=== PATIENT | female | born 1945 | race Caucasian/White ===

== ENCOUNTER → 2017-11-23 10:06 | Outpatient (POV) | payer MEDICARE, SELFPAY ==
[2017-11-23 10:28] VITALS: BP 139/62; PULSE 97; RESP 18; TEMP 36.5; O2SAT 93; BMI 41.1
--- NOTE | 2017-11-23 12:09 | HMH.PMCON ---
Assessment and Plan (1) Failed back syndrome Current visit: Yes Status: Chronic Category: Medical Code(s): M96.1 - Postlaminectomy syndrome, not elsewhere classified - Assessment and plan all Dx Assessment and Plan for all problems:: Patient has tried and failed epidural injections along with facet joint injections. Patient has tried conservative therapies for 6 months. Patient's tried and failed anti-inflammatories over 3 months. Patient is on Plavix. We will determine if she can come off of this for an intrathecal pain pump trial. I believe it would be beneficial for her long-term pain control. Patient is interested in pursuing this. Patient and I talked about realistic goal setting along with the trialing and implantation process. Patient would like to proceed. This note was dictated using voice recognition software and may contain errors or omissions HPI - Data of Consult Consult date: 11/23/17 Requesting Physician: Snehal Flower APRN Primary Care Provider: Matty Browne Family Provider: Matty Browne - Consult Narrative Reason for consult: Back pain History of present illness: Ms. Lemons is a 71 year old female presents today for consultation in regards to her back pain. Patient has had several surgeries in regards to her lower back. Patient states that her pain is a constant 8 out of 10. She states that it is aching and dull in nature. Patient is unable to walk for longer periods of time. Patient has tried and failed physical therapy. Patient was also seen in pain management for epidural injections and medial branch blocks. Patient is currently not in any pain medication. Patient is interested in interventional means of long-term pain relief. CC: Snehal Flower APRN [facility] History I have reviewed the patient's past medical history: Yes Medical History: Reports:: Diabetes Mellitus Type 2 Denies:: Cancer, Diabetes Mellitus Type 1, MRSA Other Medical History: Reports: Arthritis Other Surgeries: Yes: Cardiac Catheterization, Coronary Stent Amputation: No Fractures: No - *Social History Educational Level: Completed High School Alcohol Intake: never Occupational Status: retired Housing: house - Psychiatric History Expresses thoughts of harming self/others: None Suicide Plan Description: No Plan Review of Systems - Review of Systems ROS General: no recent weight change, no fever, no sleep disturbances Respiratory: no cough, no shortness of air, no recurring pulmonary infections Cardiovascular/Peripheral Vascular: No chest pain, No palpitations, no edema, no shortness of breath. Gastrointestinal: no incontinence, normal bowel movements reported Genitourinary: no incontinence Musculoskeletal: Back pain, leg pain Psychiatric: normal mood/ affect Neurological: [denies weakness in extremities], [denies balance issues] Meds Home Medications Medication Instructions Recorded Confirmed Type ALPRAZolam [Alprazolam Xr 1mg Tab] 1 mg PO DAILY 11/23/17 11/23/17 History Amlodipine Besylate [Norvasc 5mg 5 mg PO DAILY 11/23/17 11/23/17 History tablet] Aspirin 81 mg PO DAILY 11/23/17 11/23/17 History Atorvastatin Calcium [Atorvastatin 40 mg PO DAILY 11/23/17 11/23/17 History 40mg Tab] Clopidogrel Bisulfate [Plavix 75mg 75 mg PO DAILY 11/23/17 11/23/17 History Tab] Insulin Glargine,Hum.rec.anlog 100 unit SQ DAILY 11/23/17 11/23/17 History [Lantus Insulin 100units/mL 10mL vial] Levothyroxine Sodium 25 mcg PO DAILY 11/23/17 11/23/17 History [Levothyroxine 25mcg (0.025mg) Tab] Lisinopril [Prinivil 5mg Tablet] 5 mg PO DAILY 11/23/17 11/23/17 History Mirtazapine 15 mg PO DAILY 11/23/17 11/23/17 History Pantoprazole Sodium [Protonix 40mg 40 mg PO DAILY 11/23/17 11/23/17 History tablet] Paroxetine Mesylate [Pexeva] 40 mg PO DAILY 11/23/17 11/23/17 History Semaglutide [Ozempic] 1 mg SQ WEEKLY 11/23/17 11/23/17 History glipiZIDE [Glucotrol Xl]
--- NOTE | 2017-12-10 11:12 | PC.NURSE ---
APPROVAL OBTAINED FOR PT TO DISCONTINUE PLAVIX 7 DAYS PRIOR TO PAIN PUMP TRIAL FROM DR ZHENG. PT NOTIIFED TO STOP PLAVIX Dec AND THAT SHE IS SCHEDULED FOR PAIN PUMP TRIAL Dec AT 830AM. PT V/U.
== END ==
PROVIDERS: Family Provider Family Medicine; PCP Family Medicine; Visit Provider Clinical Nurse Specialist Family Health
DX: M96.1 Postlaminectomy syndrome, not elsewhere classified (principal)
CPT/HCPCS: 99202

== ENCOUNTER → 2018-06-07 08:54 | Outpatient (POV) | payer MEDICARE, SELFPAY ==
[2018-06-07 09:03] VITALS: BP 148/69; PULSE 82; RESP 18; O2SAT 98; BMI 38.7
--- NOTE | 2018-06-07 09:13 | HMH.PAINSOAP ---
[facility] Pain Management SOAP Note Subjective:: She is a pleasant 72-year-old white female who presents today to discuss intrathecal pain pump. Patient has tried and failed epidural injections along with facet joint injections. She is tolerating failed conservative therapies for over 6 months. Patient's tried and failed anti-inflammatories for over 3 months patient has permission to come off of her anticoagulation therapy prior to her injection. Patient has tried and failed medications. Patient and I have talked about realistic goal setting along with trialing and the implantation process. Rates her pain a 5 out of 10 when sitting up to 9 out of 10 when trying to walk ROS General: no recent weight change, no fever, no sleep disturbances Respiratory: no cough, no shortness of air, no recurring pulmonary infections Cardiovascular/Peripheral Vascular: No chest pain, No palpitations, no edema, no shortness of breath. Gastrointestinal: no incontinence, normal bowel movements reported Genitourinary: no incontinence Musculoskeletal: Back pain, leg pain Psychiatric: normal mood/ affect Neurological: [denies weakness in extremities], [denies balance issues] Objective:: Physical Exam General: Alert and oriented x3, no acute distress, pleasant and cooperative, [on room air] Lungs: Resps E/U, Symmetrical chest expansion, Eyes: PERRL Musculoskeletal: Flexion and extension of lumbar spine somewhat guarded secondary to pain, deep tendon reflexes normal, strength in upper and lower extremities [5/5], [abnormal gait noted] Neurological: speech clear, fire hydrant mechanic equal, no gross sensory deficits Assessment:: Postlaminectomy syndrome, degenerative disc disease lumbar spine with lumbar radiculopathy Plan:: We will schedule her for intrathecal pain pump trial. I believe it would be beneficial. Patient is a psychologically appropriate candidate. Patient is allowed to come off of her anticoagulation prior I will follow-up with the patient after her trial reassess her symptoms at that time. Dr. Taveras has reviewed this note and agrees with this plan of care. This note was dictated using voice recognition software and may contain errors or omissions
--- NOTE | 2018-06-07 09:18 | PC.NURSE ---
PT ADVISED TO STOP TAKING PLAVIX 7 DAYS PRIOR TO PROCEDURE NEXT WednesdayJune. PT V/U. ALL QUESTIONS WERE ENCOURAGED AND ANSWERED APPROPRIATELY.
== END ==
PROVIDERS: PCP Family Medicine; Visit Provider Clinical Nurse Specialist Family Health
DX: M96.1 Postlaminectomy syndrome, not elsewhere classified (principal); M51.16 Intervertebral disc disorders with radiculopathy, lumbar region
CPT/HCPCS: 99212

== ENCOUNTER → 2018-07-04 12:26 | Outpatient (POV) | payer MEDICARE, SELFPAY ==
[2018-07-04 12:39] VITALS: BP 156/74; PULSE 77; RESP 18; O2SAT 99; BMI 41.3
--- NOTE | 2018-07-04 13:03 | HMH.PAINSOAP ---
[facility] Pain Management SOAP Note Subjective:: Patient is a pleasant 72-year-old white female who presents today to discuss denial from her insurance on intrathecal pain pump. Patient is tried and failed epidural injections along with facet joint injections. She is failed conservative therapies for over 6 months. She has tried and failed anti-inflammatories along with systemic oral opioids including [place] for over 3 months. Patients age and comorbidities increases potential issues with oral opioid. Patient has permission to come off anticoagulation therapy prior to injections. she rates her pain a 7 out of 10 getting worse. Patient states she is having difficulty walking, her daily living and functionality has decreased. Patient is continuing a home stretching program however is becoming more more difficult. Patient is an appropriate psychological candidate. ROS General: no recent weight change, no fever, no sleep disturbances Respiratory: no cough, no shortness of air, no recurring pulmonary infections Cardiovascular/Peripheral Vascular: No chest pain, No palpitations, no edema, no shortness of breath. Gastrointestinal: no incontinence, normal bowel movements reported Genitourinary: no incontinence Musculoskeletal: Back pain, leg pain Psychiatric: normal mood/ affect Neurological: [denies weakness in extremities], [denies balance issues] Objective:: ROS General: no recent weight change, no fever, no sleep disturbances Respiratory: no cough, no shortness of air, no recurring pulmonary infections Cardiovascular/Peripheral Vascular: No chest pain, No palpitations, no edema, no shortness of breath. Gastrointestinal: no incontinence, normal bowel movements reported Genitourinary: no incontinence Musculoskeletal: Back pain, leg pain Psychiatric: normal mood/ affect Neurological: [denies weakness in extremities], [denies balance issues] Assessment:: Postlaminectomy syndrome, degenerative disc disease lumbar spine with lumbar radiculopathy Plan:: Patient and I had a long discussion in regards to the opioid crisis that is effecting our country. Patient and I both agree that moving forward with oral opioids is potentially harmful for her in regards to long-term systemic dysfunction and organ dysfunction. Patient has tried oral opioids in the past with no relief.. She continues home stretching program. Patient understands intrathecal therapy delivers medication differently. There are less opportunities to abuse medicine. Patient also understands that her medicine will be safer due to it being implanted. I do believe the patient would benefit from an intrathecal pain pump trial. She is psychologically appropriate she is allowed to come off her anticoagulation prior to this. We will ask for approval to have this procedure done. Dr. Taveras has reviewed this note and agrees with this plan of care. This note was dictated using voice recognition software and may contain errors or omissions
--- NOTE | 2018-07-04 13:06 | P.CONS_ITS ---
[facility] Pain Management SOAP Note Subjective:: Patient is a pleasant 72-year-old white female who presents today to discuss denial from her insurance on intrathecal pain pump. Patient is tried and failed epidural injections along with facet joint injections. She is failed conservative therapies for over 6 months. She has tried and failed anti- inflammatories along with systemic oral opioids including [place] for over 3 months. Patients age and comorbidities increases potential issues with oral opioid. Patient has permission to come off anticoagulation therapy prior to injections. she rates her pain a 7 out of 10 getting worse. Patient states she is having difficulty walking, her daily living and functionality has decreased. Patient is continuing a home stretching program however is becoming more more difficult. Patient is an appropriate psychological candidate. ROS General: no recent weight change, no fever, no sleep disturbances Respiratory: no cough, no shortness of air, no recurring pulmonary infections Cardiovascular/Peripheral Vascular: No chest pain, No palpitations, no edema, no shortness of breath. Gastrointestinal: no incontinence, normal bowel movements reported Genitourinary: no incontinence Musculoskeletal: Back pain, leg pain Psychiatric: normal mood/ affect Neurological: [denies weakness in extremities], [denies balance issues] Objective:: ROS General: no recent weight change, no fever, no sleep disturbances Respiratory: no cough, no shortness of air, no recurring pulmonary infections Cardiovascular/Peripheral Vascular: No chest pain, No palpitations, no edema, no shortness of breath. Gastrointestinal: no incontinence, normal bowel movements reported Genitourinary: no incontinence Musculoskeletal: Back pain, leg pain Psychiatric: normal mood/ affect Neurological: [denies weakness in extremities], [denies balance issues] Assessment:: Postlaminectomy syndrome, degenerative disc disease lumbar spine with lumbar radiculopathy Plan:: Patient and I had a long discussion in regards to the opioid crisis that is effecting our country. Patient and I both agree that moving forward with oral opioids is potentially harmful for her in regards to long-term systemic dysfunction and organ dysfunction. Patient has tried oral opioids in the past with no relief.. She continues home stretching program. Patient understands intrathecal therapy delivers medication differently. There are less opportuniti es to abuse medicine. Patient also understands that her medicine will be safer due to it being implanted. I do believe the patient would benefit from an intrathecal pain pump trial. She is psychologically appropriate she is allowed to come off her anticoagulation prior to this. We will ask for approval to have this procedure done. Dr. Taveras has reviewed this note and agrees with this plan of care. This note was dictated using voice recognition software and may contain errors or omissions
== END ==
PROVIDERS: PCP Family Medicine; Visit Provider Clinical Nurse Specialist Family Health
DX: M96.1 Postlaminectomy syndrome, not elsewhere classified (principal); M51.16 Intervertebral disc disorders with radiculopathy, lumbar region
CPT/HCPCS: 99212

== ENCOUNTER → 2018-09-16 09:45 | Outpatient (CLI) | payer MEDICARE, SELFPAY ==
[2018-09-16 09:56] LABS: Basophils # 0.1 K/mm3 (0-0.2); Basophils % 0.9 % (0.1-2.0); Eosinophils # 0.1 K/mm3 (0.0-0.4); Eosinophils % 1.1 % (0.1-12.0); Hematocrit 41.9 % (37.0-47.0); Lymphocytes % 57.4 % (10-50); Mean Corpuscular HGB Conc 31.1 g/dL (31.8-35.4); Mean Corpuscular Hemoglobin 27.2 pg (27.0-31.2); Mean Corpuscular Volume 87.6 fl (81-99); Mean Platelet Volume 7.1 fl (7.4-10.4); Monocytes # 0.3 K/mm3 (0.1-1.0); Monocytes % 3.8 % (1.7-9.3); Neutrophils # 3.2 K/mm3 (1.8-7.8); Neutrophils % 36.8 % (37.0-80.0); Platelet Count 213 K/mm3 (142-424); Red Blood Count 4.78 M/mm3 (4.20-5.40); White Blood Count 8.7 K/mm3 (4.8-10.8)
[2018-09-16 10:19] LABS: MANUAL DIFFERENTIAL MANUAL DIFFERENTIAL (MANUAL DIFF)
[2018-09-16 11:10] LABS: Anion Gap 13.4 mEq/L (5-15); Blood Urea Nitrogen 22 mg/dL (7-18); Carbon Dioxide 26 mmol/L (21.0-32.0); Chloride 105 mmol/L (98-107); Creatinine,Serum 1.02 mg/dL (0.55-1.02); Estimated Glomerular Filt Rate 54 ml/min (>60); GFR (African American) 65 ML/MIN (>60); Glucose 177 mg/dL (74-106); Potassium 4.4 mmoL/L (3.5-5.1); Sodium 140 mmol/L (136-145)
[2018-09-16 13:27] LABS: Hypochromasia 1+; Lymphocytes % 53 % (10-50); Monocytes % 2 % (2-9); Neutrophils % 44 % (42-76); Total Cells Counted 100
[2018-09-16 13:28] LABS: Platelet Estimate Normal
== END ==
PROVIDERS: Visit Provider Clinical Nurse Specialist Family Health
DX: Z79.899 Other long term (current) drug therapy (principal)
CPT/HCPCS: 36415; 80048; 85007; 85025

== ENCOUNTER → 2018-09-23 09:06 | Outpatient (POV) | payer MEDICARE, SELFPAY ==
[2018-09-23 09:31] VITALS: BP 108/57; PULSE 84; RESP 18; O2SAT 94; BMI 39.0
--- NOTE | 2018-09-23 10:35 | HMH.PMPROC ---
- Procedure Date: 09/23/18 Time: 10:35 Anesthesiologist:: Dexter Taveras MD Complications:: None Pre-procedure Diagnosis:: Degenerative disc disease of lumbar spine with lumbar radicular symptoms and increasing pain with swelling Post-procedure Diagnosis:: Same Indications for Procedure:: This patient is a pleasant 72-year-old white female who recently had permanent pain pump placed 2 days ago. She has some increasing pain over the incisions and also on her back. She also has noticed some swelling of her abdomen. She was unable to get her binder back on. She may have some retention of fluid. She is also requesting to take her Xanax at night since she has not slept. On interrogation of her pump she is going at 0.25 mg/day of intrathecal morphine 5 mg per ml. Procedure Details:: Informed consent was obtained and the risk and benefits of the procedure was explained to the patient. Patient was taken to the procedure room. The pump was interrogated. The patient was given his bolus of intrathecal morphine 0.1 mg over 5 minutes. Patient tolerated the procedure well with no palpitations. Patient's pain pump continue to 0.25 mg/day. Plan and Disposition:: We will follow-up with this patient on Wednesday. We will give her 1 dose of Lasix 40 mg orally to help with any fluid retention. We will also give her tramadol 50 mg 3 times a day for 5 days to help with incisional pain. The bolus of her intrathecal pain pump will help with her back pain. I have also allowed her to take her Xanax at night 0.5 mg to help her with her sleep. Again I have talked to her about weaning off the Xanax eventually.
== END ==
PROVIDERS: PCP Family Medicine; Visit Provider Clinical Nurse Specialist Family Health
DX: M51.16 Intervertebral disc disorders with radiculopathy, lumbar region (principal)
CPT/HCPCS: 62368

== ENCOUNTER → 2018-09-27 08:35 | Outpatient (POV) | payer MEDICARE, SELFPAY ==
--- NOTE | 2018-09-27 08:54 | HMH.PAINSOAP ---
[facility] Pain Management SOAP Note Subjective:: Female who presents today for follow-up after intrathecal pain pump placement. Patient is being treated for low back pain with lumbar radicular symptoms. Patient rates her pain a 4 out of 10 today. She says that she is feeling much better. Patient was seen last week for complaints of swelling to her abdomen patient says that she is doing better and is not feeling any swelling in her abdomen now. Patient denies any side effects to medications. [facility] #[id number] is reviewed and is appropriate. Review of Systems General: No recent weight changes, no fever, no sleep disturbances Respiratory: No cough, no shortness of air, no recurring pulmonary infections Cardiovascular/peripheral vascular: No chest pain, no palpitations, no edema, no shortness of breath Gastrointestinal: No new onset incontinence, normal bowel movements reported Genitourinary: No new onset incontinence Musculoskeletal: Lumbar back pain Psychiatric: Normal mood/affect Neurological: [Denies weakness in extremities], [denies balance issues] Objective:: Physical exam General: Alert and oriented x3, no acute distress, pleasant and cooperative, [on room air] Lungs: Respirations even and unlabored, symmetrical chest expansion Eyes: PERRL Musculoskeletal: Flexion and extension of lumbar spine somewhat guarded secondary to pain, deep tendon reflexes normal, strength in upper and lower extremities [5/5], [abnormal gait noted] Neurological: Speech clear, data administrator equal, no gross sensory deficit Assessment:: Degenerative disc disease lumbar spine with lumbar radiculopathy Plan:: Overall, the patient is doing well. She feels her edema in her abdomen has gone down. She also feels that her pain is well controlled at this time. We did discuss possibility of setting of her PTC, but the patient feels that her pain is being well controlled at this time. Wound VAC was removed, with incision well approximated no infection noted. Sutures are intact. We will follow-up with the patient in 2 weeks to remove her sutures and reassess her symptoms at that time. She is been instructed to call the office if she has any concerns prior to her next appointment. Dr. Taveras has reviewed this note and agrees with this plan of care. This note was dictated using voice recognition software and make contain errors or omissions.
[2018-09-27 08:59] VITALS: BP 153/57; PULSE 69; RESP 18; O2SAT 98; BMI 30.8
--- NOTE | 2018-09-27 09:02 | P.CONS_ITS ---
[facility] Pain Management SOAP Note Subjective:: Female who presents today for follow-up after intrathecal pain pump placement. Patient is being treated for low back pain with lumbar radicular symptoms. Patient rates her pain a 4 out of 10 today. She says that she is feeling much better. Patient was seen last week for complaints of swelling to her abdomen patient says that she is doing better and is not feeling any swelling in her abdomen now. Patient denies any side effects to medications. [facility] #[id number] is reviewed and is appropriate. Review of Systems General: No recent weight changes, no fever, no sleep disturbances Respiratory: No cough, no shortness of air, no recurring pulmonary infections Cardiovascular/peripheral vascular: No chest pain, no palpitations, no edema, no shortness of breath Gastrointestinal: No new onset incontinence, normal bowel movements reported Genitourinary: No new onset incontinence Musculoskeletal: Lumbar back pain Psychiatric: Normal mood/affect Neurological: [Denies weakness in extremities], [denies balance issues] Objective:: Physical exam General: Alert and oriented x3, no acute distress, pleasant and cooperative, [on room air] Lungs: Respirations even and unlabored, symmetrical chest expansion Eyes: PERRL Musculoskeletal: Flexion and extension of lumbar spine somewhat guarded secondary to pain, deep tendon reflexes normal, strength in upper and lower extremities [5/5], [abnormal gait noted] Neurological: Speech clear, staffing associate equal, no gross sensory deficit Assessment:: Degenerative disc disease lumbar spine with lumbar radiculopathy Plan:: Overall, the patient is doing well. She feels her edema in her abdomen has gone down. She also feels that her pain is well controlled at this time. We did discuss possibility of setting of her PTC, but the patient feels that her pain is being well controlled at this time. Wound VAC was removed, with incision well approximated no infection noted. Sutures are intact. We will follow-up with the patient in 2 weeks to remove her sutures and reassess her symptoms at that time. She is been instructed to call the office if she has any concerns prior to her next appointment. Dr. Taveras has reviewed this note and agrees with this plan of care. This note was dictated using voice recognition software and make contain errors or omissions.
== END ==
PROVIDERS: PCP Family Medicine; Visit Provider Clinical Nurse Specialist Family Health
DX: M51.16 Intervertebral disc disorders with radiculopathy, lumbar region (principal)
CPT/HCPCS: 99212

== ENCOUNTER → 2018-10-11 08:37 | Outpatient (POV) | payer MEDICARE, SELFPAY ==
[2018-10-11 09:35] VITALS: BP 134/43; PULSE 64; RESP 18; O2SAT 98; BMI 37.2
--- NOTE | 2018-10-11 09:44 | HMH.PAINSOAP ---
[facility] Pain Management SOAP Note Subjective:: She is a very pleasant 72-year-old white female who presents today for follow-up and stitch removal for intrathecal pain pump overall patient is doing well the site of the incision is healed. Patient currently on a morphine dose 0.25 mg/day she rates her pain a 4 out of 10 she is extremely satisfied with this. She denies any need for adjustment today. She denies any side effects. ROS General: no recent weight change, no fever, no sleep disturbances Respiratory: no cough, no shortness of air, no recurring pulmonary infections Cardiovascular/Peripheral Vascular: No chest pain, No palpitations, no edema, no shortness of breath. Gastrointestinal: no incontinence, normal bowel movements reported Genitourinary: no incontinence Musculoskeletal: Back pain, leg pain Psychiatric: normal mood/ affect Neurological: [denies weakness in extremities], [denies balance issues] Objective:: Physical Exam General: Alert and oriented x3, no acute distress, pleasant and cooperative, [on room air] Lungs: Resps E/U, Symmetrical chest expansion, Eyes: PERRL Musculoskeletal: Flexion and extension of lumbar spine somewhat guarded secondary to pain, deep tendon reflexes normal, strength in upper and lower extremities [5/5], slightly antalgic gait noted Neurological: speech clear, enrollment advisor equal, no gross sensory deficits Assessment:: Degenerative disc disease lumbar spine with lumbar radiculopathy Plan:: We will continue the patient on a morphine infusion of 0.25 mg/day. She does not have a PTC set up and states she does not need it. Patient's been instructed to call the office if she has any issues prior to her next appointment we will see her back for next intrathecal pain pump refill and reprogram. Dr. Taveras has reviewed this note and agrees with this plan of care. This note was dictated using voice recognition software and may contain errors or omissions Pain Management Hx Components *Have you ever received a pneumonia vaccine?: Yes *Have you received a flu vaccine this season?: Yes - *Social History *Occupational Status:: other *Travel in the last 8 weeks: None
--- NOTE | 2018-10-11 09:48 | P.CONS_ITS ---
[facility] Pain Management SOAP Note Subjective:: She is a very pleasant 72-year-old white female who presents today for follow-up and stitch removal for intrathecal pain pump overall patient is doing well the site of the incision is healed. Patient currently on a morphine dose 0.25 mg/day she rates her pain a 4 out of 10 she is extremely satisfied with this. She denies any need for adjustment today. She denies any side effects. ROS General: no recent weight change, no fever, no sleep disturbances Respiratory: no cough, no shortness of air, no recurring pulmonary infections Cardiovascular/Peripheral Vascular: No chest pain, No palpitations, no edema, no shortness of breath. Gastrointestinal: no incontinence, normal bowel movements reported Genitourinary: no incontinence Musculoskeletal: Back pain, leg pain Psychiatric: normal mood/ affect Neurological: [denies weakness in extremities], [denies balance issues] Objective:: Physical Exam General: Alert and oriented x3, no acute distress, pleasant and cooperative, [on room air] Lungs: Resps E/U, Symmetrical chest expansion, Eyes: PERRL Musculoskeletal: Flexion and extension of lumbar spine somewhat guarded secondary to pain, deep tendon reflexes normal, strength in upper and lower extremities [5/5], slightly antalgic gait noted Neurological: speech clear, gas engineer equal, no gross sensory deficits Assessment:: Degenerative disc disease lumbar spine with lumbar radiculopathy Plan:: We will continue the patient on a morphine infusion of 0.25 mg/day. She does not have a PTC set up and states she does not need it. Patient's been instructed to call the office if she has any issues prior to her next appointment we will see her back for next intrathecal pain pump refill and reprogram. Dr. Taveras has reviewed this note and agrees with this plan of care. This note was dictated using voice recognition software and may contain errors or omissions Pain Management Hx Components *Have you ever received a pneumonia vaccine?: Yes *Have you received a flu vaccine this season?: Yes - *Social History *Occupational Status:: other *Travel in the last 8 weeks: None
== END ==
PROVIDERS: PCP Family Medicine; Visit Provider Clinical Nurse Specialist Family Health
DX: M51.16 Intervertebral disc disorders with radiculopathy, lumbar region (principal)
CPT/HCPCS: 99212

== ENCOUNTER → 2018-11-14 08:40 | Outpatient (POV) | payer MEDICARE, SELFPAY ==
[2018-11-14 09:21] VITALS: BP 144/54; PULSE 65; RESP 18; O2SAT 98; BMI 36.9
--- NOTE | 2018-11-14 09:37 | HMH.PMPROC ---
- Procedure Date: 11/14/18 Time: 09:37 Anesthesiologist:: Snehal Flower APRN Complications:: None Pre-procedure Diagnosis:: Degenerative disc disease lumbar spine with lumbar radiculopathy Post-procedure Diagnosis:: Same Indications for Procedure:: Patient is a pleasant 72-year-old white female who presents today for intrathecal pain pump adjustment. She is currently on a morphine dose of 0.25 mg/day. She rates the pain a 4 out of 10. She states she is having some flares. She would like a slight increase. She denies any side effects. [facility] #[id number] reviewed and appropriate. Physical Exam General: Alert and oriented x3, no acute distress, pleasant and cooperative, [on room air] Lungs: Resps E/U, Symmetrical chest expansion, Eyes: PERRL Musculoskeletal: Flexion and extension of lumbar spine somewhat guarded secondary to pain, deep tendon reflexes normal, strength in upper and lower extremities [5/5], slightly antalgic gait noted Neurological: speech clear, match marker equal, no gross sensory deficits Procedure Details:: Informed consent was obtained and the risk and benefits of the procedure were explained to the patient. The patient was taken to the procedure room where noninvasive monitoring was placed including noninvasive blood pressure cuff and pulse oximeter. Patient's pump was interrogated and reprogrammed. The infusion rate was increased to 0.325 mg of morphine a day. Patient does not have a PTC set up. The patient tolerated the procedure well. Plan and Disposition:: We will follow-up with the patient at her next intrathecal pain pump refill and reprogram she is been instructed to call the office if she has any issues prior to her next appointment. Dr. Taveras has reviewed this note and agrees with this plan of care. This note was dictated using voice recognition software and may contain errors or omissions
--- NOTE | 2018-11-14 09:40 | P.PCN_ITS ---
- Procedure Date: 11/14/18 Time: 09:37 Anesthesiologist:: Snehal Flower APRN Complications:: None Pre-procedure Diagnosis:: Degenerative disc disease lumbar spine with lumbar radiculopathy Post-procedure Diagnosis:: Same Indications for Procedure:: Patient is a pleasant 72-year-old white female who presents today for intrathecal pain pump adjustment. She is currently on a morphine dose of 0.25 mg/day. She rates the pain a 4 out of 10. She states she is having some flares. She would like a slight increase. She denies any side effects. [facility] #[id number] reviewed and appropriate. Physical Exam General: Alert and oriented x3, no acute distress, pleasant and cooperative, [on room air] Lungs: Resps E/U, Symmetrical chest expansion, Eyes: PERRL Musculoskeletal: Flexion and extension of lumbar spine somewhat guarded secondary to pain, deep tendon reflexes normal, strength in upper and lower extremities [5/5], slightly antalgic gait noted Neurological: speech clear, superintendent automotive equal, no gross sensory deficits Procedure Details:: Informed consent was obtained and the risk and benefits of the procedure were explained to the patient. The patient was taken to the procedure room where noninvasive monitoring was placed including noninvasive blood pressure cuff and pulse oximeter. Patient's pump was interrogated and reprogrammed. The infusion rate was increased to 0.325 mg of morphine a day. Patient does not have a PTC set up. The patient tolerated the procedure well. Plan and Disposition:: We will follow-up with the patient at her next intrathecal pain pump refill and reprogram she is been instructed to call the office if she has any issues prior to her next appointment. Dr. Taveras has reviewed this note and agrees with this plan of care. This note was dictated using voice recognition software and may contain errors or omissions
== END ==
PROVIDERS: PCP Family Medicine; Visit Provider Clinical Nurse Specialist Family Health
DX: M51.16 Intervertebral disc disorders with radiculopathy, lumbar region (principal)
CPT/HCPCS: 62368

== ENCOUNTER → 2019-11-06 08:55 | Outpatient (POV) | payer MEDICARE, SELFPAY ==
--- NOTE | 2019-11-06 09:16 | HMH.PMPROC ---
- Procedure Date: 11/06/19 Time: 09:16 Anesthesiologist:: Snehal Flower APRN Complications:: None Pre-procedure Diagnosis:: Degenerative disc disease lumbar spine lumbar radiculopathy Post-procedure Diagnosis:: Same Indications for Procedure:: Patient is a pleasant 73-year-old white female who presents today for intrathecal pain pump reprogram. Patient was diagnosed with colon cancer she is successfully had it removed and is overall doing well. She still having some stomach difficulties and she is being followed up with a etcher enameling. She is currently on a morphine infusion to 0.4 mg a day she denies side effects from medication. She rates her pain a 4 out of 10. Physical Exam General: Alert and oriented x3, no acute distress, pleasant and cooperative, [on room air] Lungs: Resps E/U, Symmetrical chest expansion, Eyes: PERRL Musculoskeletal: Flexion and extension of lumbar spine somewhat guarded secondary to pain, deep tendon reflexes normal, strength in upper and lower extremities [5/5], [abnormal gait noted] Neurological: speech clear, friction welding machine operator equal, no gross sensory deficits Procedure Details:: Informed consent was obtained and the risk and benefits of the procedure were explained to the patient. The patient was taken to the procedure room where noninvasive monitoring was placed including noninvasive blood pressure cuff and pulse oximeter. Patient's pump was interrogated and reprogrammed. The infusion rate was increased 0.5 mg/day. The patient tolerated the procedure well. Plan and Disposition:: I will see the patient at her next intrathecal pain pump refill and reprogram she has been instructed to call the office if she has any issues prior to her next appointment. Dr. Taveras has reviewed this note and agrees with this plan of care. This note was dictated using voice recognition software and may contain errors or omissions
[2019-11-06 09:22] VITALS: BP 125/88; PULSE 85; RESP 18; O2SAT 99; BMI 33.7
== END ==
PROVIDERS: PCP Family Medicine; Visit Provider Clinical Nurse Specialist Family Health
DX: M51.16 Intervertebral disc disorders with radiculopathy, lumbar region (principal); E66.9 Obesity, unspecified; Z68.33 Body mass index [BMI] 33.0-33.9, adult; E11.9 Type 2 diabetes mellitus without complications; Z79.899 Other long term (current) drug therapy; Z79.82 Long term (current) use of aspirin; Z79.02 Long term (current) use of antithrombotics/antiplatelets
CPT/HCPCS: 62368

== ENCOUNTER 2019-11-20 13:48 | Day surgery (SDC) | payer MEDICARE, SELFPAY ==
[2019-11-20 14:16] VITALS: BP 149/52; PULSE 64; RESP 18; TEMP 37; O2SAT 95; BMI 33.7
[2019-11-20 14:31] VITALS: BP 166/62; PULSE 67; RESP 18; O2SAT 96
--- NOTE | 2019-11-20 14:33 | HMH.PMPROC ---
- Procedure Date: 11/20/19 Time: 14:40 Anesthesiologist:: Snehal Flower APRN Complications:: None Pre-procedure Diagnosis:: Degenerative disc disease lumbar spine lumbar radiculopathy Post-procedure Diagnosis:: Same Indications for Procedure:: Patient is a very pleasant 73-year-old white female who presents today for intrathecal pain pump refill and reprogram. Patient was diagnosed with colon cancer she successfully had it removed and is overall doing well she still currently on a morphine infusion of 0.5 mg/day. We will refill her today. [facility] #[id number] reviewed and appropriate urine drug screens have been appropriate. Physical Exam General: Alert and oriented x3, no acute distress, pleasant and cooperative, [on room air] Lungs: Resps E/U, Symmetrical chest expansion, Eyes: PERRL Musculoskeletal: Flexion and extension of lumbar spine somewhat guarded secondary to pain, deep tendon reflexes normal, strength in upper and lower extremities [5/5], slightly antalgic gait noted Neurological: speech clear, hand glove cleaner equal, no gross sensory deficits Procedure Details:: Informed consent was obtained and the risk and benefits of the procedure were explained to the patient. The patient was taken to the procedure room where noninvasive monitoring was placed including noninvasive blood pressure cuff and pulse oximeter. Patient's pump was interrogated. The area over the pump was cleansed with chlorhexidine as a cleansing solution. In sterile fashion the pump was accessed with a 22-gauge needle. Approximately 4 mL's were removed of the pump solution and discarded appropriately. The pump was then refilled with 20 mL's of morphine 5 milligrams per mL. The needle was withdrawn and a bandage was placed over the puncture site. The infusion rate was reprogrammed to continue at 0.5 mg/day. The patient tolerated the procedure well. Plan and Disposition:: We will follow-up with the patient at her next intrathecal pain pump refill and reprogram she has been instructed to call the office if she has any issues prior to next appointment. Dr. Taveras has reviewed this note and agrees with this plan of care. This note was dictated using voice recognition software and may contain errors or omissions
[2019-11-20 14:36] VITALS: BP 165/65; PULSE 69; RESP 18; O2SAT 98
[2019-11-20 14:47] VITALS: BP 153/63; PULSE 64; RESP 18; O2SAT 95
== END 2019-11-20 14:48 | disposition home or self-care (01) ==
LOC: SC.PAINP 13:48
PROVIDERS: PCP Family Medicine; Visit Provider Clinical Nurse Specialist Family Health
DX: M51.16 Intervertebral disc disorders with radiculopathy, lumbar region (principal); Z72.0 Tobacco use; E78.5 Hyperlipidemia, unspecified; J44.9 Chronic obstructive pulmonary disease, unspecified; E07.9 Disorder of thyroid, unspecified; Z90.49 Acquired absence of other specified parts of digestive tract; Z85.038 Personal history of other malignant neoplasm of large intestine; Z95.818 Presence of other cardiac implants and grafts
CPT/HCPCS: 95991

== ENCOUNTER 2020-02-26 12:51 | Day surgery (SDC) | payer MEDICARE, SELFPAY ==
[2020-02-26 13:05] VITALS: BP 186/56; PULSE 60; RESP 18; TEMP 36.6; O2SAT 99; BMI 35.9
[2020-02-26 13:22] VITALS: BP 165/71; PULSE 66; RESP 18
[2020-02-26 13:24] VITALS: BP 162/71; PULSE 65; RESP 18; O2SAT 98
--- NOTE | 2020-02-26 13:27 | HMH.PMPROC ---
- Procedure Date: 02/26/20 Time: 13:28 Anesthesiologist:: Snehal Flower APRN Complications:: None Pre-procedure Diagnosis:: Degenerative disc disease lumbar spine lumbar radiculopathy Post-procedure Diagnosis:: Same Indications for Procedure:: Patient is a pleasant 74-year-old white female who presents today for intrathecal pain pump refill and reprogram. She is doing well at this time however she would like a slight increase to her morphine infusion of 0.5 mg/day. She denies side effects from medication. [facility] #[id number] reviewed and appropriate drug screens have been appropriate. Physical Exam General: Alert and oriented x3, no acute distress, pleasant and cooperative, [on room air] Lungs: Resps E/U, Symmetrical chest expansion, Eyes: PERRL Musculoskeletal: Flexion and extension of lumbar spine somewhat guarded secondary to pain, deep tendon reflexes normal, strength in upper and lower extremities [5/5], [abnormal gait noted] Neurological: speech clear, language path equal, no gross sensory deficits Procedure Details:: Informed consent was obtained and the risk and benefits of the procedure were explained to the patient. The patient was taken to the procedure room where noninvasive monitoring was placed including noninvasive blood pressure cuff and pulse oximeter. Patient's pump was interrogated. The area over the pump was cleansed with chlorhexidine as a cleansing solution. In sterile fashion the pump was accessed with a 22-gauge needle. Approximately 9.5 mL's were removed of the pump solution and discarded appropriately. The pump was then refilled with 20 mL's of morphine 5 mg/mL. The needle was withdrawn and a bandage was placed over the puncture site. The infusion rate was reprogrammed to 0.6 mg/day. The patient tolerated the procedure well. Plan and Disposition:: I will follow-up with the patient at her next intrathecal pain pump refill and reprogram she has been instructed to call the office if she has any issues prior to her next appointment. Dr. Taveras has reviewed this note and agrees with this plan of care. This note was dictated using voice recognition software and may contain errors or omissions
[2020-02-26 13:35] VITALS: BP 156/51; PULSE 57; RESP 18; O2SAT 99
== END 2020-02-26 13:36 | disposition home or self-care (01) ==
LOC: SC.PAINP 12:51
PROVIDERS: PCP Family Medicine; Visit Provider Clinical Nurse Specialist Family Health
DX: M51.16 Intervertebral disc disorders with radiculopathy, lumbar region (principal)
CPT/HCPCS: 62370

== ENCOUNTER → 2020-05-20 10:55 | Outpatient (POV) | payer OTHER, SELFPAY ==
[2020-05-20 11:03] VITALS: BP 129/78; PULSE 74; RESP 18; O2SAT 98; BMI 35.9
--- NOTE | 2020-05-20 12:08 | P.PCN_ITS ---
- Procedure Date: 05/20/20 Time: 12:08 Anesthesiologist:: Snehal Flower APRN Complications:: None Pre-procedure Diagnosis:: Degenerative disc disease lumbar spine lumbar radiculopathy and back pain, sacroiliitis Post-procedure Diagnosis:: Same Indications for Procedure:: Patient is a very pleasant 74-year-old white female who presents today for intrathecal pain pump adjustment. Patient's been doing very well in regard to her intrathecal therapy however she is having new left SI joint pain. She has a positive SI joint compression test, distraction test, Lincoln's test, Deisy test on the left side. Patient's pain pump has not been able to cover this pain she rates her pain a 4 out of 10. We will give her a slight increase today however I do believe getting her approved for a left SI joint injection will be beneficial for her. Patient is currently on morphine 0.6 mg/day. [facility] #[id number] reviewed. Procedure Details:: Informed consent was obtained and the risk and benefits of the procedure were explained to the patient. The patient was taken to the procedure room where noninvasive monitoring was placed including noninvasive blood pressure cuff and pulse oximeter. Patient's pump was interrogated and reprogrammed. The infusion rate was increased to 0.75 mg/day of morphine. The patient tolerated the procedure well. Plan and Disposition:: We will set the patient up for a left SI joint injection given the symptomology of the patient I do believe this would benefit her. I will follow-up with her after this reassess her symptoms at that time she has been instructed to call the office if she has any issues prior to her next appointment. Dr. Taveras has reviewed this note and agrees with this plan of care. This note was dictated using voice recognition software and may contain errors or omissions
== END ==
PROVIDERS: PCP Family Medicine; Visit Provider Clinical Nurse Specialist Family Health
DX: M51.16 Intervertebral disc disorders with radiculopathy, lumbar region (principal); M46.1 Sacroiliitis, not elsewhere classified
CPT/HCPCS: 62368

== ENCOUNTER 2020-05-24 10:45 | Day surgery (SDC) | payer MEDICARE, SELFPAY ==
[2020-05-24 10:54] VITALS: BP 189/58; PULSE 72; RESP 22; TEMP 36.6; O2SAT 91; BMI 35.9
--- NOTE | 2020-05-24 11:56 | HMH.PMPROC ---
- Procedure Date: 05/24/20 Time: 11:56 Anesthesiologist:: Dexter Taveras MD Complications:: None Pre-procedure Diagnosis:: Sacroiliitis Post-procedure Diagnosis:: Same Indications for Procedure:: This patient is a pleasant 74-year-old white female who we are treating for left-sided hip pain. She is tender over the left SI joint. She has an intrathecal pain pump in place with intrathecal morphine she is doing well with her pump. Since she has new left-sided sacroiliitis. We will do a left SI joint injection under fluoroscopy today. She has a positive Lincoln's test on the left side. She has a positive Deisy test on left side. She is positive SI joint compression test on the left side. She has a positive distraction test on left side. We will do a left SI joint injection today. Procedure Details:: Left SI joint injection under fluoroscopy Informed consent was obtained and the risks and benefits of the procedure was explained to the patient. Patient was taken to the procedure room. Patient was placed prone on the procedure table. The left hip was prepped using ChloraPrep. The skin and subcutaneous tissues were anesthetized using lidocaine. I placed a 22-gauge spinal needle into the inferior aspect of the left SI joint. Needle placement was confirmed with dye. After this we injected 5 mL bupivacaine 0.25% and Depo-Medrol 40 mg into the left SI joint. The patient tolerated the procedure well with no complication. Plan and Disposition:: We will follow-up with her in 2 weeks. Will reevaluate symptoms at that time.
[2020-05-24 12:00] VITALS: BP 138/88; PULSE 89; RESP 18
[2020-05-24 12:02] VITALS: BP 128/89; PULSE 89; RESP 18; O2SAT 98
[2020-05-24 12:12] VITALS: BP 173/58; PULSE 69; RESP 20; O2SAT 93
== END 2020-05-24 12:12 | disposition home or self-care (01) ==
LOC: SC.PAINP 10:47
PROVIDERS: PCP Family Medicine; Visit Provider Anesthesiology
DX: M46.1 Sacroiliitis, not elsewhere classified (principal); M54.9 Dorsalgia, unspecified; I25.10 Atherosclerotic heart disease of native coronary artery without angina pectoris; E78.5 Hyperlipidemia, unspecified; I10 Essential (primary) hypertension; K21.9 Gastro-esophageal reflux disease without esophagitis; F41.9 Anxiety disorder, unspecified; F32.9 Major depressive disorder, single episode, unspecified; E11.9 Type 2 diabetes mellitus without complications; Z85.038 Personal history of other malignant neoplasm of large intestine; Z72.0 Tobacco use; Z79.899 Other long term (current) drug therapy
CPT/HCPCS: 27096; G0260; J1040; Q9966

== ENCOUNTER 2020-06-24 12:35 | Day surgery (SDC) | payer MEDICARE, SELFPAY ==
[2020-06-24 13:03] VITALS: BP 172/60; PULSE 72; RESP 18; TEMP 36.6; O2SAT 98; BMI 35.9
[2020-06-24 13:23] VITALS: BP 148/57; PULSE 68; RESP 18; TEMP 36.8
[2020-06-24 13:24] VITALS: BP 142/56; PULSE 69; RESP 18; O2SAT 95
--- NOTE | 2020-06-24 13:25 | HMH.PMPROC ---
- Procedure Date: 06/24/20 Time: 13:25 Anesthesiologist:: Snehal Flower APRN Complications:: None Pre-procedure Diagnosis:: Degenerative disc disease lumbar spine lumbar radiculopathy, back pain Post-procedure Diagnosis:: Same Indications for Procedure:: Patient is a pleasant 74-year-old white female who we are treating for low back and lumbar leg pain. Patient had an SI joint injection she had some relief however she did not get long-term relief. She is like to increase her intrathecal infusion today. She is currently on 0.75 mg of morphine a day she denies any side effects. [facility] #[id number] reviewed and appropriate. She rates her pain today 5 out of 10 Procedure Details:: Informed consent was obtained and the risk and benefits of the procedure were explained to the patient. The patient was taken to the procedure room where noninvasive monitoring was placed including noninvasive blood pressure cuff and pulse oximeter. Patient's pump was interrogated. The area over the pump was cleansed with chlorhexidine as a cleansing solution. In sterile fashion the pump was accessed with a 22-gauge needle. Approximately 4.5 mL's were removed of the pump solution and discarded appropriately. The pump was then refilled with 20 mL's of morphine 5 mg/mL. The needle was withdrawn and a bandage was placed over the puncture site. The infusion rate was reprogrammed to 0.9 mg/day. The patient tolerated the procedure well. Plan and Disposition:: We will see the patient back at her next intrathecal pain pump refill and reprogram she has been instructed to call our office if she has any issues prior to her next appointment. Dr. Taveras has reviewed this note and agrees with this plan of care. This note was dictated using voice recognition software and may contain errors or omissions
[2020-06-24 14:23] VITALS: BP 153/54; PULSE 65; RESP 18; TEMP 36.6; O2SAT 98
== END 2020-06-24 13:30 | disposition home or self-care (01) ==
LOC: SC.PAINP 12:36
PROVIDERS: PCP Family Medicine; Visit Provider Clinical Nurse Specialist Family Health
DX: M51.16 Intervertebral disc disorders with radiculopathy, lumbar region (principal); I25.10 Atherosclerotic heart disease of native coronary artery without angina pectoris; I10 Essential (primary) hypertension; E11.9 Type 2 diabetes mellitus without complications; E03.9 Hypothyroidism, unspecified; M19.90 Unspecified osteoarthritis, unspecified site; Z72.0 Tobacco use; E78.5 Hyperlipidemia, unspecified; J44.9 Chronic obstructive pulmonary disease, unspecified; Z90.49 Acquired absence of other specified parts of digestive tract
CPT/HCPCS: 62370

== ENCOUNTER → 2020-07-31 10:06 | Outpatient (CLI) | payer MEDICARE, SELFPAY ==
--- NOTE | 2020-07-31 10:31 | MR_ITS ---
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 Duodenum removed Sept. 2020 per pt. Pt is s/p cholecystectomy and has a pain pump that has caused severe artifact on the images. Exam was ordered with/without, but stopped with the without images because of artifact. COMPARISON: No exams were available for comparison TECHNIQUE: Routine multiplanar multi echo sequences are performed without gadolinium enhancement. FINDINGS: There are no previous exams available for review. Severe artifact is present from the patient's pain pump obscuring much of the upper abdomen. Suggest CT scan for more thorough evaluation. There is prominent biliary ductal dilatation with common hepatic duct measuring up to 13 mm in diameter. There is mild pancreatic ductal dilatation is well measuring up to 5 mm in the pancreatic head region and 4 mm in the mid aspect of the pancreas. There has been a prior cholecystectomy. There are several T2 hyperintensities within the spleen . There are at least 3 small T2 hyperintensities of the liver measuring approximately 3-4 mm.. These could be related to small cysts or hemangiomas. One cannot exclude the possibility of metastatic disease without T1 sequences and post enhanced images. The spleen is enlarged measuring 19 cm in AP dimension. An oval 3.6 cm area of T2 hyperintensity is present along the descending portion of the duodenum medially and could be related to a duodenal diverticulum from or postsurgical collection. In addition, there is a 3.2 cm area of decreased T2 signal in the gallbladder fossa region a T2 hyperintense fluid fluid level posteriorly and could be related to postsurgical hematoma. These findings however are questionable due to the limitations of the exam. Strongly recommend CT of the abdomen with pancreatic protocol without and with IV contrast and with oral contrast. IMPRESSION: 1. Very limited exam secondary to artifact from patient's pain pump. The exam borders nondiagnostic. Strongly recommend CT of the abdomen and pelvis with pancreatic protocol without and with IV contrast and with oral contrast. 2. Splenomegaly. 3. Prior cholecystectomy with biliary ductal dilatation both intra and extrahepatic. 4. Unusual collections about the duodenum and gallbladder fossa which may be postsurgical. One of the collections about the duodenum may be related to a diverticulum. Please correlate with follow-up abdomen CT 5. Several small hepatic and splenic T2 hyperintensities. This could be due to small cyst. However, without T1 and postcontrast images, 1 cannot exclude small metastasis. Dictated by: Marek Carpio MD 08/07/2020 06:00 Marek Carpio MD in [place] 08/07/2020 06:00
[2020-07-31 10:46] LABS: Blood Urea Nitrogen 17 mg/dl (7-17); Estimated Glomerular Filt Rate 49 ml/min (>60); GFR (African American) 59 ML/MIN (>60)
== END ==
PROVIDERS: PCP Family Medicine; Visit Provider Family Medicine
DX: R10.13 Epigastric pain (principal)
CPT/HCPCS: 36415; 74181; 82565; 84520

== ENCOUNTER 2020-08-19 12:42 | Day surgery (SDC) | payer MEDICARE, SELFPAY ==
[2020-08-19 12:57] VITALS: BP 157/50; PULSE 76; RESP 18; TEMP 36.7; O2SAT 94; BMI 34.9
--- NOTE | 2020-08-19 13:09 | P.PCN_ITS ---
- Procedure Date: 08/19/20 Time: 13:09 Anesthesiologist:: Leida Fields APRN Complications:: None Pre-procedure Diagnosis:: Disc disease lumbar spine with lumbar radiculopathy symptoms, chronic low back pain Post-procedure Diagnosis:: Same Indications for Procedure:: Patient is a 74-year-old white female who presents today for intrathecal pain pump refill. She has been treated for degenerative disc disease lumbar spine with lumbar radiculopathy symptoms. Patient rates her pain a 7 out of 10 today. She is having worsening low back pain. She says she recently had an MRI of her lumbar spine and following the refill of the medicine into the pump after the MRI her pain worsened. She will undergo a concentration change today as well. We will increase her today with her intrathecal therapy. Her Grzegorz and drug screens have been appropriate. She denies any side effects of medication. She is currently on morphine at 0.9 mg/day. We will also set up her PTC device today to go at 0.09 mg up to 4 times daily. Physical exam General: Alert and oriented x3, no acute distress, pleasant and cooperative, [on room air] Lungs: Respirations even and unlabored, symmetrical chest expansion Eyes: PERRL Musculoskeletal: Flexion and extension of lumbar spine somewhat guarded secondary to pain, deep tendon reflexes normal, strength in upper and lower extremities [5/5], [abnormal gait noted] Neurological: Speech clear, middleware engineer equal, no gross sensory deficit Procedure Details:: Informed consent was obtained and the risk and benefits of the procedure were explained to the patient. The patient was taken to the procedure room where noninvasive monitoring was placed including noninvasive blood pressure cuff and pulse oximeter. Patient's pump was interrogated. The area over the pump was cleansed with chlorhexidine as a cleansing solution. In sterile fashion the pump was accessed with a 22-gauge needle. Approximately 25 mls of the pump so lution was removed and discarded appropriately. The pump was then refilled with 20 mL's of mL of morphine 10 mg per mill. The needle was withdrawn and a bandage was placed over the puncture site. The infusion rate was reprogrammed at morphine at 1.08 mg/day. PTC started at 0.09 mg up to 4 times daily. The patient tolerated well with no complication. Plan and Disposition:: We will see the patient back at her next intrathecal pump refill and reprogram. Patient has been instructed to contact the clinic with any concerns before the next appointment. Dr. Taveras has reviewed this note and agrees with this plan of care. This note was dictated using voice recognition software and make contain errors or omissions.
[2020-08-19 13:12] VITALS: BP 153/52; PULSE 75; RESP 18; O2SAT 95
[2020-08-19 13:13] VITALS: BP 178/70; PULSE 72; RESP 18; O2SAT 95
[2020-08-19 13:40] VITALS: BP 156/57; PULSE 64; RESP 18; O2SAT 94
== END 2020-08-19 13:40 | disposition home or self-care (01) ==
LOC: SC.PAINP 12:43
PROVIDERS: PCP Family Medicine; Visit Provider Clinical Nurse Specialist Family Health
DX: M51.16 Intervertebral disc disorders with radiculopathy, lumbar region (principal); G89.29 Other chronic pain; Z45.1 Encounter for adjustment and management of infusion pump
CPT/HCPCS: 62370

== ENCOUNTER 2020-11-25 14:34 | Day surgery (SDC) | payer MEDICARE, SELFPAY ==
[2020-11-25 14:49] VITALS: BP 178/49; PULSE 89; RESP 18; TEMP 36.3; O2SAT 99; BMI 35.2
[2020-11-25 15:09] VITALS: BP 172/63; PULSE 69; RESP 18; O2SAT 95
[2020-11-25 15:12] VITALS: BP 180/66; PULSE 72; RESP 18; O2SAT 93
--- NOTE | 2020-11-25 15:20 | HMH.PMPROC ---
- Procedure Date: 11/25/20 Time: 15:20 Anesthesiologist:: Leida Fields APRN Complications:: None Pre-procedure Diagnosis:: Degenerative disc disease lumbar spine with lumbar radiculopathy symptoms Post-procedure Diagnosis:: Same Indications for Procedure:: Patient is a pleasant 74-year-old white female who presents today for intrathecal pain pump refill and reprogram. She has been treated for degenerative disc disease lumbar spine with lumbar radiculopathy symptoms. She is currently on a dose of morphine at 1.08 mg/day. She says that she is now having worsening pain in her low back. She says when initially getting the pump she felt that as though it was working great, however, she is unsure that she is getting significant relief with the pump at this time. We will increase the patient to see if this helps with her pain. She is currently getting Xanax as well 0.5 mg 1 tablet p.o. 3 times daily for anxiety by her primary care provider. She has been advised against increased risk of oversedation with oral Xanax and her intrathecal therapy. [facility] #[id number] has been reviewed and is appropriate. X-ray is appropriate. Morphine equivalents 0. Physical exam General: Alert and oriented x3, no acute distress, pleasant and cooperative, [on room air] Lungs: Respirations even and unlabored, symmetrical chest expansion Eyes: PERRL Musculoskeletal: Flexion and extension of lumbar [spine] somewhat guarded secondary to pain, strength in upper and lower extremities [5/5], [antalgic gait noted] Neurological: Speech clear, [rn iv therapy equal], no gross sensory deficit Procedure Details:: Informed consent was obtained and the risk and benefits of the procedure were explained to the patient. The patient was taken to the procedure room where noninvasive monitoring was placed including noninvasive blood pressure cuff and pulse oximeter. Patient's pump was interrogated. The area over the pump was cleansed with chlorhexidine as a cleansing solution. In sterile fashion the pump was accessed with a 22-gauge needle. Approximately 5 mls of the pump solution was removed and discarded appropriately. The pump was then refilled with 20 mL's of morphine and milligrams per mL. The needle was withdrawn and a bandage was placed over the puncture site. The infusion rate was reprogrammed at increased to morphine at 1.30 mg/day. The patient tolerated well with no complication. Plan and Disposition:: We will see the patient back in the clinic at the next intrathecal refill. Patient has been instructed to contact the clinic with any concerns before the next appointment. Dr. Taveras has reviewed this note and agrees with this plan of care. This note was dictated using voice recognition software and make contain errors or omissions.
[2020-11-25 15:26] VITALS: BP 178/58; PULSE 64; RESP 20; O2SAT 95
== END 2020-11-25 15:27 | disposition home or self-care (01) ==
LOC: SC.PAINP 14:36
PROVIDERS: PCP Family Medicine; Visit Provider Clinical Nurse Specialist Family Health
DX: M51.16 Intervertebral disc disorders with radiculopathy, lumbar region (principal); Z45.1 Encounter for adjustment and management of infusion pump
CPT/HCPCS: 62370

== ENCOUNTER 2021-05-07 09:36 | Inpatient (IN) | payer MEDICARE, SELFPAY ==
[2021-05-07] VITALS (12 sets, daily range): BP systolic 141–210; BP diastolic 57–94; PULSE 60–120; RESP 18–30; TEMP 36.4–37; O2SAT 93–99; BMI 35.9; BMI 36.0
--- NOTE | 2021-05-07 09:43 | XR_ITS ---
FINAL REPORT CLINICAL HISTORY: dyspnea former smoker FINDINGS: TWO VIEWS OF THE CHEST There is cardiomegaly. The mediastinum is unremarkable. There are bibasilar opacities, favor atelectasis. Small pleural effusions are identified. There is no pneumothorax. IMPRESSION: Small pleural effusions with bibasilar atelectasis. Reviewed, Interpreted and Dictated by Juma Mclean III, MD Transcribed by Jie Menendez Authenticated by Juma Mclean III, MD on 05/07/2021 11:08:38 AM [facility]
--- NOTE | 2021-05-07 09:44 | ECG_ITS ---
APPROVED REPORT Exam: Resting ECG HR:64 bpm ECG Measurements Heart Rate 64 AXES IA 171 P 68 QRSd 90 QRS 67 QT 398 T 100 QTc 407 Conclusion SINUS RHYTHM POSSIBLE LEFT ATRIAL ENLARGEMENT [-0.1mV P-WAVE IN V1/V2] NONSPECIFIC ST & T-WAVE ABNORMALITY BORDERLINE ECG UNCONFIRMED REPORT Electronically signed by : Benjamín Michelle MD 05/09/2021 16:08:29
--- NOTE | 2021-05-07 09:47 | HMH.EDGENADL ---
ED Disposition Clinical Impression: Heart failure with acute decompensation, type unknown Qualifiers: Heart failure type: unspecified Qualified Code(s): I50.9 - Heart failure, unspecified Disposition: Admitted As Inpatient Condition on Discharge: Undetermined - Critical Care Critical Care Time: No Attestation: On , the high probability of a clinically significant, sudden or life threatening deterioration of the following system(s) required my full and direct attention, intervention and personal management. The time I documented below is in addition to time spent performing reported procedures but includes the following listed in this critical care notation. Medical Decision Making - Medical Records Medical records reviewed: Yes: I reviewed the patient's medical records. - Grzegorz Inquiry Pt receiving controlled substance: No Vital Signs: 05/07/21 09:36 05/07/21 09:47 05/07/21 10:31 Temperature 98.4 F Temperature Source Oral Pulse Rate 61 Pulse Rate [Radial] 74 Respiratory Rate 24 30 H 22 Blood Pressure 170/62 H 157/59 H Blood Pressure [Right Arm] 210/94 H Blood Pressure Mean [Right Arm] 132 Blood Pressure Position [Right Arm] Sitting 02 Sat by Pulse Oximetry 93 L 99 Oxygen Delivery Method Nasal Cannula Oxygen Flow Rate (LPM) 5 - Lab Data Lab results reviewed: Yes: I reviewed the patient's lab results. Lab Results 05/07/21 09:34: WBC 7.8, RBC 4.07 L, Hgb 10.4 L, Hct 36.8 L, MCV 90.4, MCH 25.5 L, MCHC 28.2 L, RDW 18.2 H, Plt Count 237, MPV 8.0, Neut % (Auto) 50.4, Lymph % (Auto) 43.2, Alexander % (Auto) 4.3, Eos % (Auto) 1.2, Baso % (Auto) 0.9, Neut # (Auto) 3.9, Lymph # (Auto) 3.3, Alexander # (Auto) 0.3, Eos # (Auto) 0.1, Baso # (Auto) 0.1 05/07/21 09:34: Sodium 136, Potassium 4.1, Chloride 94 L, Carbon Dioxide 35 H, Anion Gap 11.1, BUN 34 H, Creatinine 0.90, Estimated Creat Clear 66, Estimated GFR 61, Est GFR ( Amer) 74, Glucose 166 H, Calcium 8.0 L, Magnesium 1.8, Total Bilirubin 0.8, AST 42 H, ALT 27, Alkaline Phosphatase 138 H, Troponin I < 0.01, NT-Pro-B Natriuret Pep 41255 H, Total Protein 7.8, Albumin 4.2, Globulin 3.6 H, Albumin/Globulin Ratio 1.2 05/07/21 09:34: Lactate 1.0 05/07/21 09:35: SARS-CoV-2 (PCR) Not detected, Influenza A Untype (PCR) Not detected, Influenza Type B (PCR) Not detected 05/07/21 09:43: VBG pH 7.35, VBG pCO2 58.7 H, VBG pO2 58.5 H, VBG HCO3 31.5 H, VBG Total CO2 33.3 H, VBG O2 Saturation 88.7 H, VBG Base Excess 5.9 H 05/07/21 10:50: Urine Color Straw, Urine Appearance Clear, Urine pH 5.5, Ur Specific [place] 1.015, Urine Protein Trace, Urine Glucose (UA) Negative, Urine Ketones Negative, Urine Blood Trace-i, Urine Nitrate Negative, Urine Bilirubin Negative, Urine Urobilinogen 0.2, Ur Leukocyte Esterase Negative, Urine WBC Occasional, Ur Squamous Epith Cells Occasional, Urine Bacteria Trace Result diagrams: 05/07/21 09:34 05/07/21 09:34 Orders (Tests/Meds): ED MEDICATIONS Discontinued Medications Generic Name Dose Route Start Last Admin Trade Name Freq PRN Reason Stop Dose Admin Alprazolam 0.5 mg 05/07/21 09:47 05/07/21 09:50 Alprazolam 0.5mg Tablet PO 05/07/21 09:48 0.5 mg ONCE ONE Administration Furosemide 80 mg 05/07/21 10:44 05/07/21 10:50 Furosemide 100mg/10ml Vial IV 05/07/21 10:45 80 mg ONCE ONE Administration ORDERS Category Date Time Status Troponin I Q3H Lab 05/07/21 12:45 Ordered Troponin I Q3H Lab 05/07/21 15:45 Ordered Medical Decision Narrative: Patient is a 75-year-old female with a history significant for COPD, heart failure s/p IA, CVA, anxiety and DVT noncompliant with Eliquis is presenting with a chief complaint of worsening dyspnea and orthopnea. On initial exam, patient is hypertensive but she is not tachycardic. Not febrile. She is got fine crackles in all lung emmanuel, concerning for volume overload. Differential diagnosis includes, but is not meant to, acute on chronic decompensation of hear
[2021-05-07 09:59] LABS: Basophils # 0.1 K/mm3 (0-0.2); Basophils % 0.9 % (0.1-2.0); Eosinophils # 0.1 K/mm3 (0.0-0.4); Eosinophils % 1.2 % (0.1-12.0); Hematocrit 36.8 % (37.0-47.0); Hemoglobin 10.4 g/dL (12.2-16.2); Lymphocytes # 3.3 K/mm3 (0.7-4.5); Lymphocytes % 43.2 % (10-50); Mean Corpuscular HGB Conc 28.2 g/dL (31.8-35.4); Mean Corpuscular Hemoglobin 25.5 pg (27.0-31.2); Mean Corpuscular Volume 90.4 fl (81-99); Monocytes # 0.3 K/mm3 (0.1-1.0); Monocytes % 4.3 % (1.7-9.3); Neutrophils # 3.9 K/mm3 (1.8-7.8); Neutrophils % 50.4 % (37.0-80.0); Platelet Count 237 K/mm3 (142-424); Red Blood Count 4.07 M/mm3 (4.20-5.40); Red Cell Distribution Width 18.2 % (11.5-17.5); White Blood Count 7.8 K/mm3 (4.8-10.8)
[2021-05-07 10:05] LABS: Chloride 94 mmol/L (98-107); Potassium 4.1 mmoL/L (3.5-5.1); Sodium 136 mmol/L (136-145)
[2021-05-07 10:06] LABS: Coronavirus 19, PCR Not Detected (NotDetected); Influenza A, PCR Not Detected (NotDetected); Influenza B, PCR Not Detected (NotDetected)
[2021-05-07 10:07] LABS: Alanine Aminotransferase 27 U/L (12-78); Aspartate Amino Transferase 42 U/L (14-36); Blood Urea Nitrogen 34 mg/dl (7-17); Creatinine Clearance Estimated 66 mL/min (50-200); Estimated Glomerular Filt Rate 61 ml/min (>60); GFR (African American) 74 ML/MIN (>60)
--- NOTE | 2021-05-07 10:07 | PC.NURSE ---
TO XRAY PER WHEELCHAIR
[2021-05-07 10:08] LABS: Albumin Level 4.2 g/dl (3.5-5.0); Albumin/Globulin Ratio 1.2 (1.1-1.8); Alkaline Phosphatase 138 U/L (38-126); Anion Gap 11.1 mEq/L (5-15); Bilirubin,Total 0.8 mg/dl (0.2-1.3); Carbon Dioxide 35 mmol/L (22.0-30.0); Globulin 3.6 g/dL (1.3-3.2); Glucose 166 mg/dl (74-100); Magnesium 1.8 mg/dl (1.6-2.3); Total Protein,Serum 7.8 g/dl (6.3-8.2)
[2021-05-07 10:16] LABS: NT Pro Brain Natriuretic Pep. 12800 pg/mL (0-125)
[2021-05-07 10:20] LABS: Troponin I < 0.01 ng/ml (0.00-0.034)
[2021-05-07 10:48] LABS: VBG Base Excess 5.9 mmol/L (-2.4-2.3); VBG HCO3 31.5 mmol/L (23-30); VBG Oxygen Saturation 88.7 % (50-70); VBG PH 7.35 mmol/L (7.31-7.41); VBG PO2 58.5 mmol/L (28-40); VBG Total CO2 33.3 mmol/L (23-27)
--- NOTE | 2021-05-07 10:56 | PC.NURSE ---
called RT to check on status of vbg, states it was just completed, they verbally gave me results over the phone which i relayed to MARIAM VOGEL
[2021-05-07 11:00] LABS: VBG PCO2 58.7 mmol/L (35-51)
[2021-05-07 11:03] LABS: Microscopic, Urine URINE MICROSCOPIC (MICROSCOPIC)
[2021-05-07 11:06] LABS: Appearance,Urine CLEAR (Clear); Bilirubin,Urine Negative (Negative); Blood, Urine TRACE-I (Negative); Color,Urine STRAW (Yellow); Glucose,Urine (UA) Negative (Negative); Ketones,Urine Negative (Negative); Leukocyte Esterase,Urine Negative (Negative); Nitrate,Urine Negative (Negative); PH,Urine 5.5 (5.0-8.5); Protein,Urine TRACE (Negative); Specific Gravity, Urine 1.015 (1.005-1.030); Urobilinogen,Urine 0.2 EU/dl (0.2)
--- NOTE | 2021-05-07 11:08 | PC.NURSE ---
left a message with [facility] office to have him call regarding admission
[2021-05-07 11:27] LABS: Bacteria,Urine Trace /lpf; Squamous Epithelial Cell,Urine Occasional #/hpf (0-5); WBC,Urine Occasional #/hpf (0-3)
--- NOTE | 2021-05-07 12:09 | PC.NURSE ---
PT SITTING UP IN WHEELCHAIR WITH NO C/O AT PRESENT. O2 4L WITH O2 SATS 96%
--- NOTE | 2021-05-07 12:25 | CA_ITS ---
APPROVED REPORT EXAM: Comprehensive 2D, Doppler, and color-flow Echocardiogram Stepdown Nurse: Marielle Feldman, RCS, RVS Ht: 5 ft 0 in Wt: 184lbs BSA: 1.80 BP: 157/59 mmHg Indications: CAD,SOA, O2 dependent, COPD, s/p [place] 1month ago, Pleural effusion 2D Dimensions Aortic Root 2.66 cm LA Volume 78.20 mL Left Atrium 3.29 cm LA Volume Index 43.40 mL/m2 (M/F) 16-34 LVOT 1.74 cm (M/F) 1.5-2.5 M-Mode Dimensions RVDd 2.53 cm (0.9-2.6) LA Diam 4.54 cm (1.9-4.0) LVDd 4.69 cm (3.5-5.7) Ao Diam 2.69 cm (2.0-3.7) LVDs 2.82 cm (3.5-5.7) IVSd 0.80 cm (0.6-1.1) PWd 0.79 cm (0.6-1.1) EF (Teich) 70.50% EPSs 0.79 cm FS 39.90% EDV (Teich) 101.90 mL TAPSE 1.62 (<1.7) ESV (Teich) 30.10 mL LV Diastology E Decel Time 160.00 (160-240 msec) E/A Ratio 3.18 MED E' 8.40 (< 7 cm/sec) MED A' 5.90 cm/s E'/MED E' Ratio 14.18 (>14) LAT E' 8.90 (<10 cm/sec) LAT A' 6.00 cm/s E/LAT E' Ratio 13.38 (>14) Aortic Valve LVOT Max 98.00 (70-110 cm/s) LVOT VTI 19.50 cm AoV Peak Randal. 169.00 (50-130 cm/s) AO Peak GR. 11.40 mmHg AO Mean GR. 5.70 (<5 mmHg) AO VTI 40.71 (18-25 cm) DEBORAH (VTI) 1.14 (2.5-4.5 cm2) Mitral Valve MV A Velocity 38.00 (40-130 cm/s) E/A Ratio 3.18 MV Decel. Time 160.00 (160-240 ms) MV Mean Gr. 2.00 (<2mmHg) MV PHT 47.00 ms Pulmonary Valve PV Peak Velocity 62.00 (50-150 cm/s) Tricuspid Valve TR P. Velocity 395.00 cm/s RAP Estimate 10.00 mmHg RVSP 72.30 mmHg Left Ventricle Left atrium is moderately enlarged, left ventricle is normal size, mild concentric left ventricular hypertrophy, visually estimated ejection fraction 55% with no regional wall motion abnormality, grade 2 diastolic dysfunction seen without tissue Doppler evidence of raise left atrial pressure. Right Ventricle Right atrium and right ventricle moderately enlarged, contractility right ventricle is normal. Aortic Valve Aortic valve is minimally thickened and fibrosed, there is no aortic stenosis or aortic insufficiency. Mitral Valve Mitral valve leaflets are minimally thickened, there is mild mitral regurgitation. Tricuspid Valve Tricuspid valve grossly normal, there is mild tricuspid regurgitation, calculated right ventricular systolic pressure 72 mmHg. Pulmonic Valve Pulmonic valve is poorly visualized. Great Vessels Aortic root is normal size. Inferior vena cava is dilated without significant inspiratory collapse. Pericardium No significant pericardial effusion. There is large left-sided pleural effusion seen. Conclusion 1. Biatrial enlargement, normal left ventricular size, mild concentric left ventricular hypertrophy, visually estimated ejection fraction 55% with no regional wall motion abnormality, grade 2 diastolic dysfunction seen without tissue Doppler evidence of raise left atrial pressure. 2. Moderately enlarged right ventricle with normal contractility. 3. Mild mitral and tricuspid regurgitation, calculated right ventricular systolic pressure is 72 mmHg. 4. Inferior vena cava is mildly dilated without significant inspiratory collapse. 5. No significant pericardial effusion noted, there is a large left-sided pleural effusion seen. Electronically signed by : Daniel Quach MD 05/07/2021 20:19:57
--- NOTE | 2021-05-07 12:28 | PC.NURSE ---
REPORT CALLED TO FLOOR
--- NOTE | 2021-05-07 14:34 | PC.NURSE ---
Pt arrived to the floor via wheelchair accompanied by JYOTI Matias. She is alert and oriented x4. Lungs w/crackles t/o. She remains on 4L NC with O2 sats measuring in the mid 90's. She states she normally ambulates with a walker. Her mccartney is to bedside draining pale colored urine. She has scattered bruising to her extremities and +3 edema to BLE. She denies any complaints at this time.
--- NOTE | 2021-05-07 14:56 | HMH.CNCARD ---
History of Present Illness Consult date: 05/07/21 Requesting physician: Jessika Jimenez Consult reason: shortness of breath Chief complaint: SOA History of present illness: This is a 75-year-old white female who presented to the emergency department complaints of shortness of breath. The patient has a history of COPD, congestive heart failure, atrial fibrillation and coronary artery disease. The patient reports having a recent CVA. She reports that she was recently admitted to [facility] for approximately 30 days and just got out of the hospital last week. The patient states that she was in the hospital for fluid around her lungs. She is a very poor historian and is unable to tell me any more information about her hospitalization or her past medical history. I did call her who is also unable to give me very much information. The patient states that she has been more short of breath for the last few days. This is associated with bilateral lower extremity edema. Her shortness of breath is associated with nausea. She is also having pressure in her chest. She states that she gets extremely nauseated and has cold sweats when she gets really short of breath and having the pressure in her chest. She denies any fever, vomiting, or diarrhea. [facility] History I have reviewed the patient's past medical history: Yes Medical History: Reports:: Atherosclerotic Heart Disease, Atrial Fibrillation, Cancer, Congestive Heart Failure, Coronary Artery Disease, Deep Vein Thrombosis, Diabetes Mellitus Type 2, Hyperlipidemia, Hypertension, Myocardial Infarction Denies:: Diabetes Mellitus Type 1, Internal Pacemaker, MRSA, Seizures *Have you ever received a pneumonia vaccine?: Yes (12/2019) *Have you received a flu vaccine this season?: Yes Other Medical History: Reports: Arthritis, Hypothyroidism, Thyroid Disease. Denies: Blood Transfusion Reaction Laterality Cases: Right: Breast Biopsy Other Surgeries: Yes: Appendectomy, Cancer Surgery (small colon), Cardiac Catheterization, Cholecystectomy, Coronary Stent, Hysterectomy-Total, Other (intrathecalpainpumpimplant). No: Pacemaker Amputation: No Fractures: No - *Social History Smoking Status: Former smoker Tobacco Type: cigarettes # Packs/Day (cigarettes): 1 #Yrs smoked (if former smoker): 55 Smoking End Date: 04/08/21 Alcohol Intake: never Substance Use Type: other *Occupational Status:: retired Housing: house Household Members: spouse *Travel in the last 8 weeks: None Family Hx:: Cancer, Coronary Artery Disease, Diabetes, Heart Attack, Hyperlipidemia, Hypertension Meds Home Medications Medication Instructions Recorded Confirmed Type Atorvastatin Calcium [Atorvastatin 40 mg PO DAILY 11/23/17 05/07/21 History 40mg Tab] Clopidogrel Bisulfate [Plavix 75mg 75 mg PO DAILY 11/23/17 05/07/21 History Tab] Insulin Glargine,Hum.rec.anlog 30 unit SQ DAILY 11/23/17 05/07/21 History [Lantus Insulin 100units/mL 10mL vial] Mirtazapine 15 mg PO DAILY 11/23/17 05/07/21 History Pantoprazole Sodium [Protonix 40mg 40 mg PO DAILY 11/23/17 05/07/21 History tablet] Semaglutide [Ozempic] 1 mg SQ WEEKLY 11/23/17 05/07/21 History glipiZIDE [Glucotrol Xl] 5 mg PO DAILYDM 11/23/17 05/07/21 History Morphine Sulfate 0.4 mg IT DAILY 05/08/19 05/07/21 History ALPRAZolam [Xanax 0.5mg tab] 0.5 mg PO TIDP PRN 05/07/21 05/07/21 History Apixaban [Eliquis 5mg tab] 5 mg PO BID 05/07/21 05/07/21 History Ezetimibe 10 mg PO HS 05/07/21 05/07/21 History Furosemide [Furosemide 80mg Tab] 80 mg PO BIDL 05/07/21 05/07/21 History Levothyroxine Sodium 112 mcg PO DAILYDM 05/07/21 05/07/21 History [Levothyroxine 112mcg (0.112mg) Tab] PARoxetine HCL [Paroxetine HCl] 40 mg PO DAILY 05/07/21 05/07/21 History Sotalol HCl [Sotalol] 80 mg PO BID 05/07/21 05/07/21 History lisinopriL [Lisinopril] 20 mg PO DAILY 05/07/21 05/07/21 History Allergies Allergy/AdvReac Type Severity Reaction Status Volodymyr
[2021-05-07 15:02] LABS: Troponin I < 0.01 ng/ml (0.00-0.034)
--- NOTE | 2021-05-07 16:33 | PC.NURSE ---
Addendum entered by Linda Garcia RN 05/07/21 18:05: med list dated 04/29/21 Original Note: Med rec completed based [facility] med list
[2021-05-08] VITALS (19 sets, daily range): BP systolic 115–176; BP diastolic 50–96; PULSE 56–80; RESP 16–20; TEMP 36.4–36.8; O2SAT 90–100; BMI 34.9; BMI 34.6
--- NOTE | 2021-05-08 | IR_ITS ---
APPROVED REPORT Patient Location: Inpatient PROCEDURES Right heart catheterization Left heart catheterization Left ventriculogram Selective coronary angiogram INDICATION Biventricular congestive heart failure, Informed consent was obtained prior to the procedure. COMPLICATIONS None Estimated Blood Loss: Less than 10 mls TECHNIQUE One percent lidocaine was used to anesthetize the right anterior aspect of the right wrist. The right radial artery was accessed via the Seldinger technique and a 6 Armenian hydrophilic sheath was placed in the right radial artery. Following this one percent lidocaine was used to anesthetize the right anterior aspect of the right neck. The right internal jugular vein was accessed via the Seldinger technique and a 7 Armenian sheath was placed in the right internal jugular vein. Following this an arterial cocktail was administered using 5000U heparin, 2.5 mg verapamil, 1mg Lidocaine and 800mcg nitroglycerin into the right radial sheath. A papa catheter was used to perform left heart catheterization left ventriculogram and selective coronary angiography while a [place]-Chandni catheter was used to perform right heart catheterization. Saturations were obtained in the pulmonary artery and right atrium. At the end of the procedure the arterial sheath was removed good hemostasis was achieved using Traclet band. Patient was transferred to the postop holding area in stable condition for venous sheath removal. ANGIOGRAPHIC RESULTS The left main artery Normal The left anterior descending artery Has proximal 10 to 20% stenoses with mid vessel diffuse 30% stenoses The circumflex artery Is nondominant and has diffuse 30% concentric stenoses The right coronary artery Is a large dominant vessel and has proximal mid vessel calcified 30% stenoses with a concentric 40% distal stenosis. The remaining dominant right coronary artery is a large vessel and widely patent The TAN ventriculogram reveals Hyperdynamic 75 to 80% The left ventricular end-diastolic pressure Severely elevated at 35 mmHg Right atrial pressure 24 mmHg Right ventricular pressure 85/24 mmHg Pulmonary occlusion pressure 32 mmHg Pulmonary artery pressure 85/40 mmHg Right atrial saturation 63% Pulmonary artery saturation 59% IMPRESSION Severe group 2 pulmonary artery hypertension secondary to severe left-sided diastolic heart failure Hyperdynamic ventricle Mild to moderate nonflow limiting coronary artery disease PLAN 1. Patient's clinical sequelae stems from severe form of diastolic heart failure. Patient requires high-dose diuretics with much more aggressive control of her hypertension. Medication should include verapamil plus or minus beta-blockers combined with diuretics. Patient has a very severe form and her prognosis will be poor and less aggressively treated. With appropriate treatment this can reverse and patient's heart began normal. The etiology of her pleural effusions almost certainly stems from severe diastolic/hypertensive heart disease 2. Patient may be a candidate for CardioMEMS to help manage diuretic therapy Electronically signed by : David Neely MD 05/08/2021 16:12:59
[2021-05-08 06:51] LABS: Basophils % 0.8 % (0.1-2.0); Eosinophils % 0.2 % (0.1-12.0); Hematocrit 33.5 % (37.0-47.0); Hemoglobin 9.6 g/dL (12.2-16.2); Lymphocytes # 2.1 K/mm3 (0.7-4.5); Lymphocytes % 40.8 % (10-50); Mean Corpuscular HGB Conc 28.6 g/dL (31.8-35.4); Mean Corpuscular Hemoglobin 25.3 pg (27.0-31.2); Mean Corpuscular Volume 88.5 fl (81-99); Mean Platelet Volume 8.2 fl (7.4-10.4); Monocytes # 0.3 K/mm3 (0.1-1.0); Monocytes % 6.4 % (1.7-9.3); Neutrophils # 2.7 K/mm3 (1.8-7.8); Neutrophils % 51.8 % (37.0-80.0); Platelet Count 208 K/mm3 (142-424); Red Blood Count 3.78 M/mm3 (4.20-5.40); Red Cell Distribution Width 18.4 % (11.5-17.5); White Blood Count 5.2 K/mm3 (4.8-10.8)
[2021-05-08 06:58] LABS: Alanine Aminotransferase 17 U/L (12-78); Albumin Level 3.3 g/dl (3.5-5.0); Alkaline Phosphatase 100 U/L (38-126); Aspartate Amino Transferase 26 U/L (14-36); Bilirubin,Indirect 0.7 mg/dL (0.0-0.9); Bilirubin,Total 0.7 mg/dl (0.2-1.3); Bilirubin,Unconjugated 0.6 mg/dL (0.0-1.1); Chol/HDL Ratio 4.8 (1-3.5); Cholesterol 92 mg/dl (140-200); HDL Cholesterol 19 mg/dl (40-60); Total Protein,Serum 6.4 g/dl (6.3-8.2); Triglycerides 97 mg/dl (30-150); VLDL Cholesterol 19 mg/dL (0-40)
[2021-05-08 07:00] LABS: Anion Gap 8.8 mEq/L (5-15); Blood Urea Nitrogen 36 mg/dl (7-17); Carbon Dioxide 38 mmol/L (22.0-30.0); Chloride 96 mmol/L (98-107); Creatinine Clearance Estimated 64 mL/min (50-200); Estimated Glomerular Filt Rate 54 ml/min (>60); GFR (African American) 66 ML/MIN (>60); Glucose 192 mg/dl (74-100); Potassium 3.8 mmoL/L (3.5-5.1); Sodium 139 mmol/L (136-145)
[2021-05-08 07:10] LABS: Direct LDL Cholesterol 43.01 mg/dL (100-129)
--- NOTE | 2021-05-08 07:12 | HMH.PHAVTE ---
[facility] Pharmacy VTE Monitoring - Patient Demographics Admission date: 05/08/21 Report Date: 05/08/21 Time: 07:12 Allergies/Adverse Reactions: Patient Allergies No Known Drug Allergies [NKDA] Allergy (Unknown, Verified 11/25/20 15:01) Height: 1.52 m Weight: 80.876 kg Patient Problems: Current Active Problems Heart failure with acute decompensation, type unknown (Acute) Acute on chronic diastolic (congestive) heart failure (Acute) Coronary artery disease (Chronic) Hypertension (Chronic) Hyperlipidemia (Chronic) Atrial fibrillation (Chronic) Current use of intermediate anticoagulation (Chronic) Mitral regurgitation (Acute) Anemia (Acute) History of colon cancer (Acute) SOB (shortness of breath) (Acute) - VTE Risk Labs: VTE Related Lab Results Hgb 9.6 g/dL (12.2-16.2) L 05/08/21 06:03 Hct 33.5 % (37.0-47.0) L 05/08/21 06:03 Plt Count 208 K/mm3 (142-424) 05/08/21 06:03 BUN 36 mg/dl (7-17) H 05/08/21 06:03 Creatinine 1.00 mg/dl (0.52-1.04) 05/08/21 06:03 Estimated Creat Clear 64 mL/min (50-200) 05/08/21 06:03 Was VTE Risk Assessment Performed: Yes VTE Score: 14 VTE Risk Level: Moderate Risk Clinical Trial Participant: No - Prophylaxis VTE Prophylaxis Ordered?: Yes Types of VTE Prophylaxis: IPCS Knee High, Pharmacological (eliquis)
--- NOTE | 2021-05-08 08:09 | HMH.PHAINT ---
Home med rec complete
--- NOTE | 2021-05-08 09:26 | HMH.PNCARD ---
Subjective Date: 05/08/21 Time: 08:30 Principal diagnosis: diastolic chf Interval history: This is a 75 and white female who presented to the emergency department complaints of shortness of breath. The patient has been getting IV diuretics overnight and she states her shortness of breath has improved. She is still complaining of the shortness of breath even at rest but it is better than it was when she was admitted. It is still associated with orthopnea, bilateral lower extremity edema and nausea. She denies diaphoresis this morning. She still has some pressure in her chest associated with the shortness of breath as well. She denies any fever, vomiting or diarrhea. Records were received from [facility]. The patient was recently admitted there for an acute exacerbation of diastolic congestive heart failure where she received IV diuretics and did have a chest tube placed at 1 point for an apical pneumothorax. The patient was diuresed and her atrial fibrillation was treated with sotalol as well as Eliquis. 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 Alexandra. Her treatment has currently been stopped due to her multiple comorbidities and declining health status. The patient also has portal hypertension with a history of gastric varices. The patient is scheduled to undergo right and left cardiac catheterization today given her recurrent exacerbations of diastolic congestive heart failure and known coronary artery disease. Exam Vital signs and Labs for Last 24 Hours: Temp Pulse Resp BP Pulse Ox 97.7 F 68 20 151/60 H 90 L 05/08/21 08:00 05/08/21 08:00 05/08/21 08:00 05/08/21 08:00 05/08/21 08:00 Laboratory Results - last 24 hr 05/07/21 09:34: WBC 7.8, RBC 4.07 L, Hgb 10.4 L, Hct 36.8 L, MCV 90.4, MCH 25.5 L, MCHC 28.2 L, RDW 18.2 H, Plt Count 237, MPV 8.0, Neut % (Auto) 50.4, Lymph % (Auto) 43.2, [place] % (Auto) 4.3, Eos % (Auto) 1.2, Baso % (Auto) 0.9, Neut # (Auto) 3.9, Lymph # (Auto) 3.3, [place] # (Auto) 0.3, Eos # (Auto) 0.1, Baso # (Auto) 0.1 05/07/21 09:34: Sodium 136, Potassium 4.1, Chloride 94 L, Carbon Dioxide 35 H, Anion Gap 11.1, BUN 34 H, Creatinine 0.90, Estimated Creat Clear 66, Estimated GFR 61, Est GFR ( Amer) 74, Glucose 166 H, Calcium 8.0 L, Magnesium 1.8, Total Bilirubin 0.8, AST 42 H, ALT 27, Alkaline Phosphatase 138 H, Troponin I < 0.01, NT-Pro-B Natriuret Pep 69069 H, Total Protein 7.8, Albumin 4.2, Globulin 3.6 H, Albumin/Globulin Ratio 1.2 05/07/21 09:34: Lactate 1.0 05/07/21 09:35: SARS-CoV-2 (PCR) Not detected, Influenza A Untype (PCR) Not detected, Influenza Type B (PCR) Not detected 05/07/21 09:43: VBG pH 7.35, VBG pCO2 58.7 H, VBG pO2 58.5 H, VBG HCO3 31.5 H, VBG Total CO2 33.3 H, VBG O2 Saturation 88.7 H, VBG Base Excess 5.9 H 05/07/21 10:50: Urine Color Straw, Urine Appearance Clear, Urine pH 5.5, Ur Specific [place] 1.015, Urine Protein Trace, Urine Glucose (UA) Negative, Urine Ketones Negative, Urine Blood Trace-i, Urine Nitrate Negative, Urine Bilirubin Negative, Urine Urobilinogen 0.2, Ur Leukocyte Esterase Negative, Urine WBC Occasional, Ur Squamous Epith Cells Occasional, Urine Bacteria Trace 05/07/21 14:30: Troponin I < 0.01 05/08/21 06:03: WBC 5.2 D, RBC 3.78 L, Hgb 9.6 L, Hct 33.5 L, MCV 88.5, MCH 25.3 L, MCHC 28.6 L, RDW 18.4 H, Plt Count 208, MPV 8.2, Neut % (Auto) 51.8, Lymph % (Auto) 40.8, [place] % (Auto) 6.4, Eos % (Auto) 0.2, Baso % (Auto) 0.8, Neut # (Auto) 2.7, Lymph # (Auto) 2.1, [place] # (Auto) 0.3, Eos # (Auto) 0.0, Baso # (Auto) 0.0 05/08/21 06:03: Sodium 139, Potassium 3.8, Chloride 96 L, Carbon Dioxide 38 H, Anion Gap 8.8, BUN 36 H, Creatinine 1.00, Estimated Creat Clear 64, Estimated GFR 54 L, Est GFR ( Amer) 66, Glucose 192 H, Calcium 8.0 L 05/08/21 06:03: Total Bilirubin 0.7, Direct Bilirubin 0.0, Conjugated Bilirubin 0.0, Indirect Bilirubin 0.7, Unconjugated Bilirubin 0.6, AST 26 D, ALT 17 D, A
--- NOTE | 2021-05-08 09:31 | HMH.HP ---
*Admission Date: 05/08/21 *Chief complaint: Shortness of breath *History of present illness: 75-year-old female patient presented to the [facility] emergency department per squad she does report not taking Eliquis with reports of shortness of breath, patient has a history of COPD and is on 4 L of oxygen per nasal cannula at home. She reports waking this morning feeling short of breath and has gradually increased throughout the day. She does have a history of heart failure, pulmonary embolus on Eliquis, and was recently inpatient at [facility] for approximately 30 days and was discharged last week for fluid around her lungs and unable to provide any more information. For 3 days due to being out. She denies any chest pain, nausea/vomiting/diarrhea and has bilateral lower extremities, that she reports is decreased from her normal. 05/07/21 CXR: FINDINGS: TWO VIEWS OF THE CHEST There is cardiomegaly. The mediastinum is unremarkable. There are bibasilar opacities, favor atelectasis. Small pleural effusions are identified. There is no pneumothorax. IMPRESSION: Small pleural effusions with bibasilar atelectasis. Reviewed, Interpreted and Dictated by Juma Mclean III, MD 05/07/21 ECHO: Conclusion 1. Biatrial enlargement, normal left ventricular size, mild concentric left ventricular hypertrophy, visually estimated ejection fraction 55% with no regional wall motion abnormality, grade 2 diastolic dysfunction seen without tissue Doppler evidence of raise left atrial pressure. 2. Moderately enlarged right ventricle with normal contractility. 3. Mild mitral and tricuspid regurgitation, calculated right ventricular systolic pressure is 72 mmHg. 4. Inferior vena cava is mildly dilated without significant inspiratory collapse. 5. No significant pericardial effusion noted, there is a large left-sided pleural effusion seen. Electronically signed by : Daniel Quach MD 75-year-old female sitting up in bed. Current oxygenation status 88% on 4 L per nasal cannula. She denies any chest pain or shortness of breath during the night reports she is feeling better today than yesterday. She does report feeling anxious this morning and has not received her Xanax last night nor this morning. [facility] History I have reviewed the patient's past medical history: Yes Medical History: Reports:: Arrhythmia, Atherosclerotic Heart Disease, Atrial Fibrillation, Cancer, Congestive Heart Failure, Coronary Artery Disease, Deep Vein Thrombosis, Diabetes Mellitus Type 2, Hyperlipidemia, Hypertension, Myocardial Infarction Denies:: Diabetes Mellitus Type 1, Internal Pacemaker, MRSA, Seizures *Have you ever received a pneumonia vaccine?: Yes (12/2019) *Have you received a flu vaccine this season?: Yes Other Medical History: Reports: Arthritis, Hypothyroidism, Thyroid Disease. Denies: Blood Transfusion Reaction Laterality Cases: Right: Breast Biopsy Other Surgeries: Yes: Appendectomy, Cancer Surgery (small colon), Cardiac Catheterization, Cholecystectomy, Coronary Stent, Hysterectomy-Total, Other (intrathecalpainpumpimplant). No: Pacemaker Amputation: No Fractures: No - *Social History Smoking Status: Former smoker Tobacco Type: cigarettes # Packs/Day (cigarettes): 1 #Yrs smoked (if former smoker): 55 Smoking End Date: 04/08/21 Alcohol Intake: never Substance Use Type: other *Occupational Status:: retired Housing: house Household Members: spouse *Travel in the last 8 weeks: None Family Hx:: Cancer, Coronary Artery Disease, Diabetes, Heart Attack, Hyperlipidemia, Hypertension Review of Systems - Review of Systems Review of systems:: pertinent systems reviewed and negative unless documented below - Constitutional Reports fatigue, Denies body ache(s) - Eyes Denies blind spots, Denies double vision - ENT Denies bleeding gums, Denies facial pain - *Cardiovascular Reports shortness of breath, Reports shortness of b
--- NOTE | 2021-05-08 12:25 | XR_ITS ---
PROCEDURE INFORMATION: Exam: XR Chest Exam date and time: 05/08/2021 12:25 PM Age: 75 years old Clinical indication: Dyspnea TECHNIQUE: Imaging protocol: XR of the chest. Views: 1 view. COMPARISON: CR XR CHEST 2V 05/07/2021 10:01 AM FINDINGS: Lungs: Bibasilar airspace disease are again seen. Pleural spaces: Bilateral pleural effusions are noted. Heart/Mediastinum: Unremarkable. No cardiomegaly. Bones/joints: Unremarkable. IMPRESSION: Stable bibasilar airspace disease and bilateral effusions.
--- NOTE | 2021-05-08 14:30 | PC.NURSE ---
Pt is alert and oriented x4. Lungs clear, she remains on 4L NC with O2 sats measuring in the lower 90's. +2 edema to BLE. Scattered bruising to BUE, stage 1 to right buttocks. Flower dressing applied as a precaution and pt encouraged to change position frequently. She is currently resting in bed w/ at bedside awaiting transport to lab associate.
[2021-05-08 16:07] LABS: CATHL Arterial O2 SAT 59.7 % (90-100); CATHL Venous O2 SAT 63.9 % (75-80)
--- NOTE | 2021-05-08 18:39 | PC.NURSE ---
Gauze and tegaderm to rt IJ site is clean, dry and intact. Radial band in place, removing air q15min. No signs of oozing or bleeding.
[2021-05-09] VITALS (9 sets, daily range): BP systolic 109–130; BP diastolic 49–71; PULSE 50–140; RESP 16–20; TEMP 36.4–36.8; O2SAT 93–100; BMI 34.8
--- NOTE | 2021-05-09 03:50 | ECG_ITS ---
APPROVED REPORT Exam: Resting ECG HR:120 bpm ECG Measurements Heart Rate 120 AXES QRSd 89 QRS 79 QT 326 T 240 QTc 397 Conclusion ATRIAL FIBRILLATION WITH RAPID VENTRICULAR RESPONSE NONSPECIFIC ST & T-WAVE ABNORMALITY ABNORMAL ECG UNCONFIRMED REPORT Electronically signed by : Benjamín Michelle MD 05/09/2021 16:01:50
--- NOTE | 2021-05-09 04:16 | PC.NURSE ---
Patient had a rhythm change, vitals are all WNL with the exception of heart rate at 117. Patient has no symptoms and is resting in bed comfortably. EKG was performed and the ED MD gave no new orders. Patient will get up into the 130's at times but is not sustaining. Patient's right radial and right IJ site is C/D/I. Patient has voiced no complaints. Will continue to monitor.
[2021-05-09 07:02] LABS: Blood Urea Nitrogen 35 mg/dl (7-17); Calcium 8.2 mg/dl (8.4-10.2); Carbon Dioxide 39 mmol/L (22.0-30.0); Chloride 97 mmol/L (98-107); Creatinine Clearance Estimated 64 mL/min (50-200); Estimated Glomerular Filt Rate 54 ml/min (>60); GFR (African American) 66 ML/MIN (>60); Glucose 55 mg/dl (74-100); Sodium 141 mmol/L (136-145)
[2021-05-09 07:23] LABS: Basophils # 0.1 K/mm3 (0-0.2); Basophils % 1.4 % (0.1-2.0); Eosinophils % 0.8 % (0.1-12.0); Hematocrit 32.3 % (37.0-47.0); Hemoglobin 9.6 g/dL (12.2-16.2); Lymphocytes # 2.3 K/mm3 (0.7-4.5); Lymphocytes % 55.9 % (10-50); Mean Corpuscular HGB Conc 29.8 g/dL (31.8-35.4); Mean Corpuscular Hemoglobin 25.4 pg (27.0-31.2); Mean Corpuscular Volume 85.4 fl (81-99); Mean Platelet Volume 8.1 fl (7.4-10.4); Monocytes # 0.2 K/mm3 (0.1-1.0); Monocytes % 5.9 % (1.7-9.3); Neutrophils # 1.5 K/mm3 (1.8-7.8); Platelet Count 181 K/mm3 (142-424); Red Blood Count 3.78 M/mm3 (4.20-5.40); Red Cell Distribution Width 18.3 % (11.5-17.5); White Blood Count 4.1 K/mm3 (4.8-10.8)
[2021-05-09 07:25] LABS: MANUAL DIFFERENTIAL MANUAL DIFFERENTIAL (MANUAL DIFF)
--- NOTE | 2021-05-09 09:06 | CT_ITS ---
FINAL REPORT CLINICAL HISTORY: abd pain, diarrhea FINDINGS: CT OF THE ABDOMEN AND PELVIS WITH CONTRAST Axial CT images of the abdomen and pelvis were obtained after the administration of oral and iv contrast. Coronal reformatted images were also obtained and reviewed.This study was performed with techniques to keep radiation doses as low as reasonably achievable (ALARA). Individualized dose reduction techniques using automated exposure control or adjustment of mA and/or kV according to the patient's size were employed. Abdomen: There are moderate bilateral pleural effusions. There is bilateral lower lobe atelectasis. The heart is normal in size. There is a somewhat irregular liver contour which may represent cirrhosis. There is no evidence of mass or biliary ductal dilatation. The gallbladder is surgically absent. There is splenomegaly with the spleen measuring 20 cm in length. There are several small low-attenuation foci in the spleen which is nonspecific and could represent small cysts or hemangiomas. No adrenal mass is present. The pancreas has an unremarkable appearance. The kidneys are normal, without evidence of mass or hydronephrosis. The aorta is normal in caliber. There is no adenopathy. There is moderate anasarca. There is a small amount of ascites. Pelvis: The appendix is not seen. There is no localized inflammatory change in this region. There is a small amount of ascites in the pelvis. A Mathews catheter is present. There is a tubular high attenuation structure in the right lower pelvis of uncertain etiology but presumably represents postoperative change. There is no evidence of mass or adenopathy. There is no evidence of bowel obstruction. IMPRESSION: Splenomegaly with several small low-attenuation foci in the spleen, nonspecific and could represent small cysts or hemangiomas. Irregular liver contour which may represent cirrhosis. Moderate anasarca. Small amount of ascites. Reviewed, Interpreted and Dictated by Juma Mclean III, MD Transcribed by Nazanin Cifuentes Authenticated by Juma Mclean III, MD on 05/09/2021 11:26:07 AM [facility]
--- NOTE | 2021-05-09 09:09 | HMH.ACPN2 ---
Internal Medicine - PN: Subj *Date: 05/09/21 *Time: 08:00 Interval history: pt c/o abd pain and nausea Exam Vital signs and Labs for Last 24 Hours: Temp Pulse Resp BP Pulse Ox 98.3 F 126 H 16 130/67 95 05/09/21 07:39 05/09/21 07:39 05/09/21 07:39 05/09/21 07:39 05/09/21 07:39 Laboratory Results - last 24 hr 05/08/21 15:50: ABG O2 Sat (Measured) 59.7 L, POC VBG O2 Sat (Douglas) 63.9 L 05/09/21 06:17: WBC 4.1 L, RBC 3.78 L, Hgb 9.6 L, Hct 32.3 L, MCV 85.4, MCH 25.4 L, MCHC 29.8 L, RDW 18.3 H, Plt Count 181, MPV 8.1, Neut % (Auto) 36.0 L, Lymph % (Auto) 55.9 H, [place] % (Auto) 5.9, Eos % (Auto) 0.8, Baso % (Auto) 1.4, Neut # (Auto) 1.5 L, Lymph # (Auto) 2.3, [place] # (Auto) 0.2, Eos # (Auto) 0.0, Baso # (Auto) 0.1 05/09/21 06:17: Sodium 141, Potassium 3.0 L D, Chloride 97 L, Carbon Dioxide 39 H, Anion Gap 8.0, BUN 35 H, Creatinine 1.00, Estimated Creat Clear 64, Estimated GFR 54 L, Est GFR ( Amer) 66, Glucose 55 L, Calcium 8.2 L I & O for Last 24 hours: Intake & Output 05/06/21 05/07/21 05/08/21 05/09/21 11:59 11:59 11:59 11:59 Intake Total 240 / 240 120 / 120 Output Total 2150 / 2150 700 / 700 Balance -1910 / -1910 -580 / -580 Weight 184 lb 178 lb 4.8 oz 177 lb 8 oz - Constitutional no acute distress - *Routine HEENT Exam Head: Present: normocephalic Eye: Present: PERRL ENT: Present: mucous membranes moist - *Routine Neck Exam Present: supple. Absent: lymphadenopathy - *Routine Respiratory Exam Present: CTA bilaterally - *Routine Cardiovascular Exam Present: RRR - *Routine Abdominal Exam Present: soft, normoactive bowel sounds, tenderness - *Routine Extremities Exam Present: normal capillary refill. Absent: cyanosis, clubbing, edema - *Routine Skin Exam Present: warm. Absent: rash - *Routine Neurological Exam Present: alert, oriented X3 Assessment and Plan (1) SOB (shortness of breath) Status: Acute Category: Medical Code(s): R06.02 - Shortness of breath (2) Acute on chronic diastolic (congestive) heart failure Status: Acute Category: Medical Code(s): I50.33 - Acute on chronic diastolic (congestive) heart failure (3) Coronary artery disease Status: Chronic Qualifiers: Coronary Disease-Associated Artery/Lesion type: [place] artery [place] vs. transplanted heart: [place] heart Associated angina: without angina Qualified Code(s): I25.10 - Atherosclerotic heart disease of [place] coronary artery without angina pectoris Category: Medical Code(s): I25.10 - Atherosclerotic heart disease of [place] coronary artery without angina pectoris (4) Hypertension Status: Chronic Qualifiers: Hypertension type: primary hypertension Qualified Code(s): I10 - Essential (primary) hypertension Category: Medical Code(s): I10 - Essential (primary) hypertension (5) Hyperlipidemia Status: Chronic Qualifiers: Hyperlipidemia type: mixed hyperlipidemia Qualified Code(s): E78.2 - Mixed hyperlipidemia Category: Medical Code(s): E78.5 - Hyperlipidemia, unspecified (6) Atrial fibrillation Status: Chronic Category: Medical Code(s): I48.91 - Unspecified atrial fibrillation (7) Current use of longterm anticoagulation Status: Chronic Category: Medical Code(s): Z79.01 - halfway (current) use of anticoagulants (8) Mitral regurgitation Status: Acute Category: Medical Code(s): I34.0 - Nonrheumatic mitral (valve) insufficiency (9) Anemia Status: Acute Category: Medical Code(s): D64.9 - Anemia, unspecified (10) History of colon cancer Status: Acute Category: Medical Code(s): Z85.038 - Personal history of other malignant neoplasm of large intestine - Assessment and plan all Dx Assessment and Plan for all problems:: rounded with dr begum all orders per dr shy ct abd pelevis out of bed pt/ot eval amylase lipase
[2021-05-09 09:21] LABS: Amylase 41 U/L (30-110); Lipase 29 U/L (23-300)
[2021-05-09 09:51] LABS: Anisocytosis 1+; Hypochromasia 1+; Lymphocytes % 66 % (10-50); Monocytes % 7 % (2-9); Neutrophils % 27 % (42-76); Platelet Estimate Normal; Total Cells Counted 100
--- NOTE | 2021-05-09 10:38 | HMH.PNCARD ---
Subjective Date: 05/09/21 Time: 09:00 Principal diagnosis: diastolic chf Interval history: This is a 75-year-old white female who presented to the emergency department complaints of chest pain. She underwent right and left cardiac catheterization yesterday which showed severe diastolic congestive heart failure with severe pulmonary hypertension. The patient needs aggressive treatment of her diastolic congestive heart failure. She was placed on high-dose Lasix yesterday and Aldactone. Her sotalol was stopped because given the degree of congestive heart failure she has this is not an ideal medication for her. She was placed on coreg. Patient has subsequently went back into atrial fibrillation with RVR. This morning she states that her shortness of breath is much better. She denies any chest pain or pressure. She states that she feels really fatigued still but this is improving as well. She states she still has lower extremity edema but this is also improving. She denies any fever, chills, nausea, vomiting, diarrhea. 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 Alexandra. According to her records from [facility] her treatment is currently stopped due to her multiple core morbidities and declining health. Dr. Neely would like to talk to Dr. Alexandra about the current state of her lymphoma. Exam Vital signs and Labs for Last 24 Hours: Temp Pulse Resp BP Pulse Ox 98.3 F 120 H 16 130/67 95 05/09/21 07:39 05/09/21 08:00 05/09/21 07:39 05/09/21 07:39 05/09/21 07:39 Laboratory Results - last 24 hr 05/08/21 15:50: ABG O2 Sat (Measured) 59.7 L, POC VBG O2 Sat ([place]) 63.9 L 05/09/21 06:17: WBC 4.1 L, RBC 3.78 L, Hgb 9.6 L, Hct 32.3 L, MCV 85.4, MCH 25.4 L, MCHC 29.8 L, RDW 18.3 H, Plt Count 181, MPV 8.1, Neut % (Auto) 36.0 L, Lymph % (Auto) 55.9 H, [place] % (Auto) 5.9, Eos % (Auto) 0.8, Baso % (Auto) 1.4, Neut # (Auto) 1.5 L, Lymph # (Auto) 2.3, [place] # (Auto) 0.2, Eos # (Auto) 0.0, Baso # (Auto) 0.1, Total Counted 100, Neutrophils % (Manual) 27 L, Lymphocytes % (Manual) 66 H, Monocytes % (Manual) 7, Platelet Estimate Normal, Hypochromasia 1+, Anisocytosis 1+ 05/09/21 06:17: Sodium 141, Potassium 3.0 L D, Chloride 97 L, Carbon Dioxide 39 H, Anion Gap 8.0, BUN 35 H, Creatinine 1.00, Estimated Creat Clear 64, Estimated GFR 54 L, Est GFR ( Amer) 66, Glucose 55 L, Calcium 8.2 L 05/09/21 06:17: Amylase 41, Lipase 29 I & O for Last 24 hours: Intake & Output 05/06/21 05/07/21 05/08/21 05/09/21 23:59 23:59 23:59 23:59 Intake Total 240 / 240 120 / 120 120 / 120 Output Total 1350 / 2150 1450 / 1450 50 / 50 Balance -1110 / -1910 -1330 / -1330 70 / 70 Weight 184 lb 9 oz 176 lb 5.917 oz 177 lb 8 oz Narrative: C shows: The left main artery Normal The left anterior descending artery Has proximal 10 to 20% stenoses with mid vessel diffuse 30% stenoses The circumflex artery Is nondominant and has diffuse 30% concentric stenoses The right coronary artery Is a large dominant vessel and has proximal mid vessel calcified 30% stenoses with a concentric 40% distal stenosis. The remaining dominant right coronary artery is a large vessel and widely patent The TAN ventriculogram reveals Hyperdynamic 75 to 80% The left ventricular end-diastolic pressure Severely elevated at 35 mmHg Right atrial pressure 24 mmHg Right ventricular pressure 85/24 mmHg Pulmonary occlusion pressure 32 mmHg Pulmonary artery pressure 85/40 mmHg Right atrial saturation 63% Pulmonary artery saturation 59% IMPRESSION Severe group 2 pulmonary artery hypertension secondary to severe left-sided diastolic heart failure Hyperdynamic ventricle Mild to moderate nonflow limiting coronary artery disease PLAN 1. Patient's clinical sequelae stems from severe form of diastolic heart failure. Patient requires high-dose diuretics with much more aggressive control of her hypertension. Medication should incl
--- NOTE | 2021-05-09 11:24 | HMH.PTEV ---
Physical Therapy Evaluation Rehab PT IP Evaluation Start: 05/09/21 09:11 Freq: ONCE Status: Active Protocol: Document 05/09/21 11:22 PHODIANDRA (Rec: 05/09/21 11:23 PHORNE [id number]) Subjective/History History History 75 yowf adm to [facility] with CHF exac. She reports she lives with spouse, no steps to enter the hoem and was independent with all mobility prior to adm . Subjective Subjective Pt reports she feels tired this morning, Rehab PT IP Eval Objective Appearance Patient Behavior Appropriate Patient Orientation Person,Place,Time Difficulty following instructions none Speech Pattern Clear Ambulation Patient Able to Ambulate Yes Ambulation Observation IP General Gait Pattern Observation Wide Based Gait Ambulation Distance (feet) 20 Ambulation Assistive Device None Ambulation Ability Supervision/Stand by Balance Ability to Arise Able, uses arms to help Sitting Balance Steady, safe Standing Balance Steady, wide stance Dynamic Sitting Balance Ability Good Dynamic Standing Balance Ability Good Transfers Bed Transfer Ability Supervision/Stand by Chair Transfer Ability Supervision/Stand by Sit to Stand Bed Transfer Ability Supervision/Stand by Sit to Stand Chair Transfer Ability Supervision/Stand by Rehab PT IP prob,goals,plan Problems Date of Evaluation: 05/09/21 Discharge Plan PT Discharge Plan Pt is currently at baseline for all mobility at this time and is appropriate to return home once medically stable. G -code Required No Eval Complexity Eval Charge Codes 67681 - Moderate Complexity PHYSICIAN CERTIFICATION: I certify the specified therapy services for Radha Lemons are required, authorized, and reviewed every 30 days.
--- NOTE | 2021-05-09 11:30 | HMH.OTEV ---
OT Inpatient Evaluation Rehab OT IP Evaluation Start: 05/09/21 09:11 Freq: ONCE Status: Complete Protocol: Document 05/09/21 11:22 [facility] (Rec: 05/09/21 11:30 [facility] [id number]) Rehab OT IP Assessment Subjective History Pt oriented x 3 on arrival. Pt agreeable to engage in therapy evaluation. Pt resting in chair. Pt was admitted via ED on 05/07/21 due to SOB. Pt has a past medical history of Arrhythmia, Atherosclerotic Heart Disease, Atrial Fibrillation, Cancer, Congestive Heart Failure, Coronary Artery Disease, Deep Vein Thrombosis, Diabetes Mellitus Type 2, Hyperlipidemia, Hypertension, Myocardial Infarction The following information was copied from History and Physical report per physician: 75-year-old female patient presented to the [facility] emergency department per squad she does report not taking Eliquis with reports of shortness of breath, patient has a history of COPD and is on 4 L of oxygen per nasal cannula at home. She reports waking this morning feeling short of breath and has gradually increased throughout the day. She does have a history of heart failure, pulmonary embolus on Eliquis, and was recently inpatient at [facility] for approximately 30 days and was discharged last week for fluid around her lungs and unable to provide any more information. For 3 days due to being out. She denies any chest pain, nausea/ vomiting/diarrhea and has bilateral lower extremities, that she reports is decreased from her normal.
--- NOTE | 2021-05-09 11:38 | DIET.NUTRFU ---
During rounds today patient indicated she was nauseated but not throwing up, patient is currently NPO. 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 Was previously on diabetic diet, when able to restart may benefit from some glucerna to help with caloric intake. Cardiac is also following and increased lasix today, reviewed weights 3/2 was 184# and todays 177# secondary to fluid loss.
--- NOTE | 2021-05-09 14:23 | PC.NURSE ---
PT IS RESTING IN BED. TOLERATING GETTING TO THE CHAIR THIS SHIFT WITH PHYSICAL THERAPY. PT HAS BEEN ENCOURAGED TO TURN AND REPOSITION WHILE IN BED. PT HAS BEEN AFIB ON TELEMETRY SINCE THIS MORNING. LUNG SOUNDS DIMINISHED WITH FINE CRACKLES. ABDOMEN SOFT WITH MILD TENDERNESS. PT REFUSED THE CT OF THE ABDOMEN B/C SHE STATED SHE WAS UNABLE TO LAY FLAT. PT HAD SCHEDULED XANAX PRIOR TO SCAN. PT TOLERATED TAKING HER MEDS THIS SHIFT WITH APPLESAUCE. 2 + PITTING EDEMA NOTED TO BLE. WILL CONTINUE TO MONITOR.
[2021-05-10] VITALS (10 sets, daily range): BP systolic 115–158; BP diastolic 52–75; PULSE 76–122; RESP 16–24; TEMP 35.9–36.9; O2SAT 95–100; BMI 34.0
[2021-05-10 07:24] LABS: Basophils # 0.1 K/mm3 (0-0.2); Basophils % 1.2 % (0.1-2.0); Eosinophils % 0.9 % (0.1-12.0); Hemoglobin 9.5 g/dL (12.2-16.2); Lymphocytes # 2.3 K/mm3 (0.7-4.5); Lymphocytes % 55.3 % (10-50); Mean Corpuscular HGB Conc 28.9 g/dL (31.8-35.4); Mean Corpuscular Hemoglobin 25.1 pg (27.0-31.2); Mean Corpuscular Volume 86.7 fl (81-99); Mean Platelet Volume 8.1 fl (7.4-10.4); Monocytes # 0.2 K/mm3 (0.1-1.0); Monocytes % 5.3 % (1.7-9.3); Neutrophils # 1.6 K/mm3 (1.8-7.8); Neutrophils % 37.2 % (37.0-80.0); Platelet Count 162 K/mm3 (142-424); Red Cell Distribution Width 18.4 % (11.5-17.5); White Blood Count 4.2 K/mm3 (4.8-10.8)
[2021-05-10 07:29] LABS: Anion Gap 9.6 mEq/L (5-15); Blood Urea Nitrogen 28 mg/dl (7-17); Calcium 8.1 mg/dl (8.4-10.2); Carbon Dioxide 37 mmol/L (22.0-30.0); Chloride 96 mmol/L (98-107); Creatinine Clearance Estimated 62 mL/min (50-200); Estimated Glomerular Filt Rate 61 ml/min (>60); GFR (African American) 74 ML/MIN (>60); Glucose 136 mg/dl (74-100); Potassium 3.6 mmoL/L (3.5-5.1); Sodium 139 mmol/L (136-145)
[2021-05-10 07:38] LABS: MANUAL DIFFERENTIAL MANUAL DIFFERENTIAL (MANUAL DIFF)
--- NOTE | 2021-05-10 09:00 | PC.NURSE ---
Insulin glargine order changed to 40 units after pt request per Dr. Tierney
[2021-05-10 09:01] LABS: POC Glucose,Bedside 273 (70-110)
--- NOTE | 2021-05-10 09:34 | HMH.ACPN2 ---
Internal Medicine - PN: Subj *Date: 05/11/21 *Time: 08:00 Interval history: doing better - mark diet better and dec abd pain Exam Vital signs and Labs for Last 24 Hours: Temp Pulse Resp BP Pulse Ox 96.7 F L 122 H 20 158/73 H 99 05/10/21 07:50 05/10/21 07:50 05/10/21 07:50 05/10/21 07:50 05/10/21 07:50 Laboratory Results - last 24 hr 05/09/21 06:17: Total Counted 100, Neutrophils % (Manual) 27 L, Lymphocytes % (Manual) 66 H, Monocytes % (Manual) 7, Platelet Estimate Normal, Hypochromasia 1+, Anisocytosis 1+ 05/10/21 06:47: WBC 4.2 L, RBC 3.80 L, Hgb 9.5 L, Hct 33.0 L, MCV 86.7, MCH 25.1 L, MCHC 28.9 L, RDW 18.4 H, Plt Count 162, MPV 8.1, Neut % (Auto) 37.2, Lymph % (Auto) 55.3 H, [place] % (Auto) 5.3, Eos % (Auto) 0.9, Baso % (Auto) 1.2, Neut # (Auto) 1.6 L, Lymph # (Auto) 2.3, [place] # (Auto) 0.2, Eos # (Auto) 0.0, Baso # (Auto) 0.1 05/10/21 06:47: Sodium 139, Potassium 3.6, Chloride 96 L, Carbon Dioxide 37 H, Anion Gap 9.6, BUN 28 H, Creatinine 0.90, Estimated Creat Clear 62, Estimated GFR 61, Est GFR ( Amer) 74, Glucose 136 H, Calcium 8.1 L 05/10/21 08:43: POC Glucose 273 H I & O for Last 24 hours: Intake & Output 05/07/21 05/08/21 05/09/21 05/10/21 11:59 11:59 11:59 11:59 Intake Total 240 / 240 240 / 240 360 / 360 Output Total 2150 / 2150 700 / 700 1400 / 1400 Balance -1910 / -1910 -460 / -460 -1040 / -1040 Weight 184 lb 178 lb 4.8 oz 177 lb 8 oz 173 lb 8 oz - Constitutional no acute distress, obese - *Routine HEENT Exam Head: Present: normocephalic Eye: Present: EOMI, PERRL ENT: Present: mucous membranes dry - *Routine Neck Exam Absent: JVD - *Routine Respiratory Exam Present: decreased breath sounds - *Routine Cardiovascular Exam Present: RRR, murmur, S4 - *Routine Abdominal Exam Present: soft. Absent: tenderness - *Routine Extremities Exam Absent: tenderness - *Routine Skin Exam Present: intact - *Routine Neurological Exam Present: alert, CN II-XII intact - Routine Psychiatric Exam Present: cooperative Assessment and Plan (1) SOB (shortness of breath) Status: Acute Category: Medical Code(s): R06.02 - Shortness of breath (2) Acute on chronic diastolic (congestive) heart failure Status: Acute Category: Medical Code(s): I50.33 - Acute on chronic diastolic (congestive) heart failure (3) Coronary artery disease Status: Chronic Qualifiers: Coronary Disease-Associated Artery/Lesion type: [place] artery [place] vs. transplanted heart: [place] heart Associated angina: without angina Qualified Code(s): I25.10 - Atherosclerotic heart disease of [place] coronary artery without angina pectoris Category: Medical Code(s): I25.10 - Atherosclerotic heart disease of [place] coronary artery without angina pectoris (4) Hypertension Status: Chronic Qualifiers: Hypertension type: primary hypertension Qualified Code(s): I10 - Essential (primary) hypertension Category: Medical Code(s): I10 - Essential (primary) hypertension (5) Hyperlipidemia Status: Chronic Qualifiers: Hyperlipidemia type: mixed hyperlipidemia Qualified Code(s): E78.2 - Mixed hyperlipidemia Category: Medical Code(s): E78.5 - Hyperlipidemia, unspecified (6) Atrial fibrillation Status: Chronic Category: Medical Code(s): I48.91 - Unspecified atrial fibrillation (7) Current use of shelter anticoagulation Status: Chronic Category: Medical Code(s): Z79.01 - longterm (current) use of anticoagulants (8) Mitral regurgitation Status: Acute Category: Medical Code(s): I34.0 - Nonrheumatic mitral (valve) insufficiency (9) Anemia Status: Acute Category: Medical Code(s): D64.9 - Anemia, unspecified (10) History of colon cancer Status: Acute Category: Medical Code(s): Z85.038 - Personal history of other malignant neoplasm of large intestine (11) Small lymphocytic lymphoma Status: Acute Category: Medical Code(s): C83.
[2021-05-10 09:46] LABS: Lymphocytes % 53 % (10-50); Monocytes % 6 % (2-9); Neutrophils % 40 % (42-76); Total Cells Counted 100
[2021-05-10 09:48] LABS: Anisocytosis 1+; Hypochromasia 2+; Platelet Estimate Normal
[2021-05-10 15:39] LABS: POC Glucose,Bedside 235 (70-110)
--- NOTE | 2021-05-10 17:12 | PC.NURSE ---
Patient complained of nausea. FSBS 235. Dr. Niall damon and reglan 10 mg dose ordered now and 10 mg with meals.
[2021-05-11] VITALS (7 sets, daily range): BP systolic 118–157; BP diastolic 53–68; PULSE 57–100; RESP 16–24; TEMP 36.3–36.8; O2SAT 4–100; BMI 34.0
[2021-05-11 06:55] LABS: Anion Gap 9.5 mEq/L (5-15); Blood Urea Nitrogen 27 mg/dl (7-17); Calcium 7.9 mg/dl (8.4-10.2); Carbon Dioxide 39 mmol/L (22.0-30.0); Chloride 94 mmol/L (98-107); Creatinine Clearance Estimated 57 mL/min (50-200); Estimated Glomerular Filt Rate 49 ml/min (>60); GFR (African American) 59 ML/MIN (>60); Glucose 100 mg/dl (74-100); Potassium 3.5 mmoL/L (3.5-5.1); Sodium 139 mmol/L (136-145)
[2021-05-11 07:19] LABS: Basophils # 0.1 K/mm3 (0-0.2); Basophils % 1.5 % (0.1-2.0); Eosinophils % 0.9 % (0.1-12.0); Hematocrit 31.3 % (37.0-47.0); Hemoglobin 9.2 g/dL (12.2-16.2); Lymphocytes # 2.1 K/mm3 (0.7-4.5); Lymphocytes % 49.2 % (10-50); Mean Corpuscular HGB Conc 29.4 g/dL (31.8-35.4); Mean Corpuscular Hemoglobin 25.5 pg (27.0-31.2); Mean Corpuscular Volume 86.6 fl (81-99); Mean Platelet Volume 8.6 fl (7.4-10.4); Monocytes # 0.3 K/mm3 (0.1-1.0); Monocytes % 6.7 % (1.7-9.3); Neutrophils # 1.7 K/mm3 (1.8-7.8); Neutrophils % 41.7 % (37.0-80.0); Platelet Count 143 K/mm3 (142-424); Red Blood Count 3.61 M/mm3 (4.20-5.40); Red Cell Distribution Width 18.2 % (11.5-17.5); White Blood Count 4.2 K/mm3 (4.8-10.8)
--- NOTE | 2021-05-11 08:04 | HMH.ACPN2 ---
Internal Medicine - PN: Subj *Date: 05/12/21 *Time: 06:16 Interval history: pt doing better overall - oob more often Exam Vital signs and Labs for Last 24 Hours: Temp Pulse Resp BP Pulse Ox 98 F 73 16 124/68 96 05/11/21 04:00 05/11/21 07:48 05/11/21 04:00 05/11/21 04:00 05/11/21 07:48 Laboratory Results - last 24 hr 05/10/21 06:47: Total Counted 100, Neutrophils % (Manual) 40 L, Lymphocytes % (Manual) 53 H, Monocytes % (Manual) 6, Basophils % (Manual) 1.0, Platelet Estimate Normal, Hypochromasia 2+, Anisocytosis 1+ 05/10/21 08:43: POC Glucose 273 H 05/10/21 15:31: POC Glucose 235 H 05/11/21 05:59: WBC 4.2 L, RBC 3.61 L, Hgb 9.2 L, Hct 31.3 L, MCV 86.6, MCH 25.5 L, MCHC 29.4 L, RDW 18.2 H, Plt Count 143, MPV 8.6, Neut % (Auto) 41.7, Lymph % (Auto) 49.2, [place] % (Auto) 6.7, Eos % (Auto) 0.9, Baso % (Auto) 1.5, Neut # (Auto) 1.7 L, Lymph # (Auto) 2.1, [place] # (Auto) 0.3, Eos # (Auto) 0.0, Baso # (Auto) 0.1 05/11/21 05:59: Sodium 139, Potassium 3.5, Chloride 94 L, Carbon Dioxide 39 H, Anion Gap 9.5, BUN 27 H, Creatinine 1.10 H D, Estimated Creat Clear 57, Estimated GFR 49 L, Est GFR ( Amer) 59 D, Glucose 100 D, Calcium 7.9 L I & O for Last 24 hours: Intake & Output 05/08/21 05/09/21 05/10/21 05/11/21 11:59 11:59 11:59 11:59 Intake Total 240 / 240 240 / 240 360 / 360 180 / 180 Output Total 2150 / 2150 700 / 700 1400 / 1400 850 / 850 Balance -1910 / -1910 -460 / -460 -1040 / -1040 -670 / -670 Weight 178 lb 4.8 oz 177 lb 8 oz 173 lb 8 oz 173 lb 8 oz - Constitutional no acute distress, obese - *Routine HEENT Exam Head: Present: normocephalic Eye: Present: EOMI, PERRL ENT: Present: mucous membranes dry - *Routine Neck Exam Absent: JVD - *Routine Respiratory Exam Present: decreased breath sounds - *Routine Cardiovascular Exam Present: RRR, murmur - *Routine Abdominal Exam Present: soft - *Routine Extremities Exam Absent: calf tenderness - *Routine Skin Exam Present: intact - *Routine Neurological Exam Present: alert, CN II-XII intact - Routine Psychiatric Exam Present: cooperative Assessment and Plan (1) SOB (shortness of breath) Status: Acute Category: Medical Code(s): R06.02 - Shortness of breath (2) Acute on chronic diastolic (congestive) heart failure Status: Acute Category: Medical Code(s): I50.33 - Acute on chronic diastolic (congestive) heart failure (3) Coronary artery disease Status: Chronic Qualifiers: Coronary Disease-Associated Artery/Lesion type: [place] artery [place] vs. transplanted heart: [place] heart Associated angina: without angina Qualified Code(s): I25.10 - Atherosclerotic heart disease of [place] coronary artery without angina pectoris Category: Medical Code(s): I25.10 - Atherosclerotic heart disease of [place] coronary artery without angina pectoris (4) Hypertension Status: Chronic Qualifiers: Hypertension type: primary hypertension Qualified Code(s): I10 - Essential (primary) hypertension Category: Medical Code(s): I10 - Essential (primary) hypertension (5) Hyperlipidemia Status: Chronic Qualifiers: Hyperlipidemia type: mixed hyperlipidemia Qualified Code(s): E78.2 - Mixed hyperlipidemia Category: Medical Code(s): E78.5 - Hyperlipidemia, unspecified (6) Atrial fibrillation Status: Chronic Category: Medical Code(s): I48.91 - Unspecified atrial fibrillation (7) 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
--- NOTE | 2021-05-11 09:39 | XR_ITS ---
PROCEDURE INFORMATION: Exam: XR Chest Exam date and time: 05/11/2021 9:39 AM Age: 75 years old Clinical indication: Shortness of breath; Prior surgery; Surgery date: 6+ months; Surgery type: Cardiac stent; Additional info: SOB TECHNIQUE: Imaging protocol: XR of the chest. Views: 2 views. COMPARISON: CR XR CHEST PORTABLE 05/08/2021 5:40 AM FINDINGS: Lungs: [id number] bibasilar passive atelectasis or consolidation. Mild pulmonary vascular congestion. Pleural spaces: Small to moderate left and small right pleural effusion. Heart/Mediastinum: Cardiomegaly, accentuated by the AP projection. Vasculature: Vascular calcifications. Bones/joints: Scoliosis. IMPRESSION: Overall, similar appearance to previous. Small to moderate left and small right pleural effusions with passive atelectasis or consolidation. Otherwise, as above.
--- NOTE | 2021-05-11 11:12 | HMH.ITSTN ---
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 I advised nurse Jose I will be back to get her after I finish ER patients. Chest xray was ordered routine
--- NOTE | 2021-05-11 14:39 | PC.NURSE ---
PT IS RESTING IN BED. TOLERATED SITTING UP IN THE CHAIR THIS SHIFT FOR A COUPLE OF HOURS WITH ENCOURAGEMENT FROM NURSING STAFF. PT HAS STATED ON SEVERAL OCCASIONS THAT SHE FEELS BETTER WHEN SOMEONE IN IN THE ROOM WITH HER. PT IS A TURN AND REPOSITION WHILE IN BED TO PREVENT FURTHER BREAKDOWN. SMALL STAGE 1 NOTED TO THE RT BUTTOCKS. PT HAS BEEN NSR ON TELEMETRY. 2 + PITTING EDEMA NOTED TO BLE . CATHETER DC'D THIS SHIFT. WILL CONTINUE TO MONITOR.
[2021-05-11 15:10] LABS: POC Glucose,Bedside 270 (70-110)
[2021-05-12] VITALS: BP 133/55; PULSE 58; PULSE 64; RESP 16; TEMP 36.6; O2SAT 89
[2021-05-12 00:15] VITALS: O2SAT 96
[2021-05-12 04:00] VITALS: BP 159/69; PULSE 62; RESP 14; TEMP 36.7; O2SAT 94
[2021-05-12 05:00] VITALS: BMI 34.7
[2021-05-12 06:49] LABS: Basophils % 0.8 % (0.1-2.0); Eosinophils % 1.2 % (0.1-12.0); Hematocrit 30.2 % (37.0-47.0); Hemoglobin 8.8 g/dL (12.2-16.2); Lymphocytes # 1.7 K/mm3 (0.7-4.5); Lymphocytes % 47.3 % (10-50); Mean Corpuscular HGB Conc 29.1 g/dL (31.8-35.4); Mean Corpuscular Hemoglobin 25.2 pg (27.0-31.2); Mean Corpuscular Volume 86.7 fl (81-99); Mean Platelet Volume 8.8 fl (7.4-10.4); Monocytes # 0.2 K/mm3 (0.1-1.0); Monocytes % 6.2 % (1.7-9.3); Neutrophils # 1.6 K/mm3 (1.8-7.8); Neutrophils % 44.5 % (37.0-80.0); Platelet Count 109 K/mm3 (142-424); Red Blood Count 3.48 M/mm3 (4.20-5.40); Red Cell Distribution Width 18.3 % (11.5-17.5); White Blood Count 3.6 K/mm3 (4.8-10.8)
[2021-05-12 07:08] LABS: Anion Gap 9.4 mEq/L (5-15); Blood Urea Nitrogen 26 mg/dl (7-17); Calcium 7.9 mg/dl (8.4-10.2); Carbon Dioxide 37 mmol/L (22.0-30.0); Chloride 94 mmol/L (98-107); Creatinine Clearance Estimated 63 mL/min (50-200); Estimated Glomerular Filt Rate 54 ml/min (>60); GFR (African American) 66 ML/MIN (>60); Glucose 133 mg/dl (74-100); Potassium 3.4 mmoL/L (3.5-5.1); Sodium 137 mmol/L (136-145)
[2021-05-12 08:00] VITALS: BP 151/56; PULSE 72; PULSE 80; RESP 16; TEMP 36.6; O2SAT 98
--- NOTE | 2021-05-12 09:21 | HMH.DCSUM ---
General - General Admission date:: 05/07/21 Discharge date: 05/12/21 HPI HPI: 75-year-old female patient presented to the [facility] emergency department per squad she does report not taking Eliquis with reports of shortness of breath, patient has a history of COPD and is on 4 L of oxygen per nasal cannula at home. She reports waking this morning feeling short of breath and has gradually increased throughout the day. She does have a history of heart failure, pulmonary embolus on Eliquis, and was recently inpatient at [facility] for approximately 30 days and was discharged last week for fluid around her lungs and unable to provide any more information. For 3 days due to being out. She denies any chest pain, nausea/vomiting/diarrhea and has bilateral lower extremities, that she reports is decreased from her normal. 05/07/21 CXR: FINDINGS: TWO VIEWS OF THE CHEST There is cardiomegaly. The mediastinum is unremarkable. There are bibasilar opacities, favor atelectasis. Small pleural effusions are identified. There is no pneumothorax. IMPRESSION: Small pleural effusions with bibasilar atelectasis. Reviewed, Interpreted and Dictated by Juma Mclean III, MD 05/07/21 ECHO: Conclusion 1. Biatrial enlargement, normal left ventricular size, mild concentric left ventricular hypertrophy, visually estimated ejection fraction 55% with no regional wall motion abnormality, grade 2 diastolic dysfunction seen without tissue Doppler evidence of raise left atrial pressure. 2. Moderately enlarged right ventricle with normal contractility. 3. Mild mitral and tricuspid regurgitation, calculated right ventricular systolic pressure is 72 mmHg. 4. Inferior vena cava is mildly dilated without significant inspiratory collapse. 5. No significant pericardial effusion noted, there is a large left-sided pleural effusion seen. Electronically signed by : Daniel Quach MD 75-year-old female sitting up in bed. Current oxygenation status 88% on 4 L per nasal cannula. She denies any chest pain or shortness of breath during the night reports she is feeling better today than yesterday. She does report feeling anxious this morning and has not received her Xanax last night nor this morning. Hospital Course Hospital Course: 05/07/21 CXR: FINDINGS: TWO VIEWS OF THE CHEST There is cardiomegaly. The mediastinum is unremarkable. There are bibasilar opacities, favor atelectasis. Small pleural effusions are identified. There is no pneumothorax. IMPRESSION: Small pleural effusions with bibasilar atelectasis. Reviewed, Interpreted and Dictated by Juma Mclean III, MD 05/07/21 ECHO: Conclusion 1. Biatrial enlargement, normal left ventricular size, mild concentric left ventricular hypertrophy, visually estimated ejection fraction 55% with no regional wall motion abnormality, grade 2 diastolic dysfunction seen without tissue Doppler evidence of raise left atrial pressure. 2. Moderately enlarged right ventricle with normal contractility. 3. Mild mitral and tricuspid regurgitation, calculated right ventricular systolic pressure is 72 mmHg. 4. Inferior vena cava is mildly dilated without significant inspiratory collapse. 5. No significant pericardial effusion noted, there is a large left-sided pleural effusion seen. Electronically signed by : Daniel Quach MD 05/09/21 Abd/Pelvis CT: FINDINGS: CT OF THE ABDOMEN AND PELVIS WITH CONTRAST Axial CT images of the abdomen and pelvis were obtained after the administration of oral and iv contrast. Coronal reformatted images were also obtained and reviewed.This study was performed with techniques to keep radiation doses as low as reasonably achievable (ALARA). Individualized dose reduction techniques using automated exposure control or adjustment of mA and/or kV according to the patient's size were employed. Abdomen: There are m
[2021-05-12 12:00] VITALS: BP 147/58; PULSE 64; PULSE 65; RESP 14; TEMP 36.6; O2SAT 97
--- NOTE | 2021-05-12 13:36 | P.PN_ITS ---
Subjective Date: 05/12/21 Time: 13:36 Principal diagnosis: diastolic chf Interval history: 75-year-old white female sitting in bedside chair in no acute distress. She is anxious to go home. States she is feeling and breathing better. Exam Vital signs and Labs for Last 24 Hours: Temp Pulse Resp BP Pulse Ox 97.9 F 72 16 151/56 H 98 05/12/21 08:00 05/12/21 08:00 05/12/21 08:00 05/12/21 08:00 05/12/21 08:00 Laboratory Results - last 24 hr 05/11/21 15:02: POC Glucose 270 H 05/12/21 06:32: WBC 3.6 L, RBC 3.48 L, Hgb 8.8 L, Hct 30.2 L, MCV 86.7, MCH 25.2 L, MCHC 29.1 L, RDW 18.3 H, Plt Count 109 L, MPV 8.8, Neut % (Auto) 44.5, Lymph % (Auto) 47.3, [place] % (Auto) 6.2, Eos % (Auto) 1.2, Baso % (Auto) 0.8, Neut # (Auto) 1.6 L, Lymph # (Auto) 1.7, [place] # (Auto) 0.2, Eos # (Auto) 0.0, Baso # (Auto) 0.0 05/12/21 06:32: Sodium 137, Potassium 3.4 L, Chloride 94 L, Carbon Dioxide 37 H, Anion Gap 9.4, BUN 26 H, Creatinine 1.00, Estimated Creat Clear 63, Estimated GFR 54 L, Est GFR ( Amer) 66, Glucose 133 H, Calcium 7.9 L I & O for Last 24 hours: Intake & Output 05/10/21 05/11/21 05/12/21 05/13/21 11:59 11:59 11:59 11:59 Intake Total 360 / 360 300 / 300 360 / 360 Output Total 1400 / 1400 1450 / 1450 200 / 200 Balance -1040 / -1040 -1150 / -1150 160 / 160 Weight 173 lb 8 oz 173 lb 8 oz 176 lb 9 oz - *Routine Respiratory Exam Present: CTA bilaterally, crackles, diminished air movement - *Routine Cardiovascular Exam Present: RRR - *Routine Extremities Exam Present: edema. 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 Status: Chronic (8) Mitral regurgitation Status: Acute (9) Anemia Status: Acute (10) History of colon cancer Status: Acute (11) Small lymphocytic lymphoma Status: Acute (12) Splenomegaly Status: Acute (13) LVH (left ventricular hypertrophy) Status: Acute (14) Diastolic dysfunction with heart failure Status: Acute (15) Pulmonary HTN Status: Acute (16) Obesity (BMI 30-39.9) Status: Acute Assessment and Plan for All Diagnoses:: Okay for discharge home from cardiology standpoint Home medication recommendations: Lasix 120 mg twice daily Spironolactone 50 mg twice daily Bisoprolol 10 mg twice daily Calan SR 120 mg twice daily Plavix 75 mg daily Eliquis 5 mg twice daily Atorvastatin 40 mg daily Potassium 20 mEq daily Follow-up in our office in 1 week with a BMP and BNP.
--- NOTE | 2021-05-13 14:28 | CARE MANAGER ---
Spoke with patient for follow-up phone call and patient states that she is doing ok, she is short of breath when she gets up and moves around, she has an appointment to see her doctor on 05/20. Patient got her home meds and states she has no needs at this time.
== END 2021-05-12 16:00 | disposition home or self-care (01) | DRG 286 ==
LOC: ER 11:07 → 2ND 12:06
PROVIDERS: Internal Medicine; Nurse Practitioner Family; Admitting Provider Emergency Medicine; Emergency Provider Emergency Medicine; PCP Nurse Practitioner Family; Visit Provider Emergency Medicine
PROC: 4A023N8 Measurement of Cardiac Sampling and Pressure, Bilateral, Percutaneous Approach (ICD-10-PCS; principal; 2021-05-08 09:45)
DX: I11.0 Hypertensive heart disease with heart failure (principal); I50.33 Acute on chronic diastolic (congestive) heart failure; I48.20 Chronic atrial fibrillation, unspecified; C83.00 Small cell B-cell lymphoma, unspecified site; I25.10 Atherosclerotic heart disease of native coronary artery without angina pectoris; E78.2 Mixed hyperlipidemia; Z79.01 Long term (current) use of anticoagulants; Z91.14 Patient's other noncompliance with medication regimen; Z85.038 Personal history of other malignant neoplasm of large intestine; I34.0 Nonrheumatic mitral (valve) insufficiency; I27.20 Pulmonary hypertension, unspecified; Z99.81 Dependence on supplemental oxygen; Z86.718 Personal history of other venous thrombosis and embolism; Z86.73 Personal history of transient ischemic attack (TIA), and cerebral infarction without residual deficits; E87.6 Hypokalemia; E66.9 Obesity, unspecified; Z68.34 Body mass index [BMI] 34.0-34.9, adult; F41.9 Anxiety disorder, unspecified; J44.9 Chronic obstructive pulmonary disease, unspecified; D63.0 Anemia in neoplastic disease; Z95.5 Presence of coronary angioplasty implant and graft; E03.9 Hypothyroidism, unspecified; Z87.891 Personal history of nicotine dependence
CPT/HCPCS: 36415; 51702; 71045; 71046; 74177; 80048; 80053; 80061; 80076; 81001; 82150; 82803; 82810; 82962; 83605; 83690; 83735; 83880; 84484; 85007; 85025; 93005; 93306; 93460; 94640; 96374; 97162; 97166; 99152; 99285; C1725; C1769; C1894; C9803; J1644; Q9967; U0003; U0005

== ENCOUNTER 2021-05-17 01:45 | Inpatient (IN) | payer MEDICARE, SELFPAY ==
[2021-05-17] VITALS (32 sets, daily range): BP systolic 94–157; BP diastolic 50–89; PULSE 67–98; RESP 13–30; TEMP 36.4–37.8; O2SAT 97–100; BMI 34.0; BMI 34.2
--- NOTE | 2021-05-17 01:50 | PC.NURSE ---
pt admitted via stretcher to 218 from [facility] with EMS present, pt being transcutaneously paced at 60 with zoll, pt on levo at 10mcg/min, pt opens eyes on command and to pain, pt follows commands but restless so placed mittens on pt 0230-bp 150/54 levo decreased to 8mcg/min 0235-bp 133/61 levo decreased to 6mcg/min 0240-bp 128/57 levo decreased to 4mcg/min 0245-bp 137/56 levo decreased to 2mcg/min 0250-bp 141/57 levo stopped
--- NOTE | 2021-05-17 01:52 | PC.NURSE ---
PT ARRIVED TO FLOOR @ [id number]
[2021-05-17 02:48] LABS: Coronavirus 19, PCR Not Detected (NotDetected); Influenza A, PCR Not Detected (NotDetected); Influenza B, PCR Not Detected (NotDetected)
[2021-05-17 02:55] LABS: POC Glucose,Bedside 138 (70-110)
[2021-05-17 03:24] LABS: Microscopic, Urine URINE MICROSCOPIC (MICROSCOPIC)
[2021-05-17 03:26] LABS: ABG Base Excess -1.5 mmol/L (-2.4-2.3); ABG HCO3 24.3 mmhg (22.0-26.0); ABG Oxygen Saturation 98 % (90-100); ABG PCO2 46.1 mmhg (35.0-45.0); ABG PH 7.34 mmol/L (7.35-7.45); ABG PO2 106.2 mmhg (80-100); ABG TCO2 25.7 mmhg (23-27)
[2021-05-17 03:27] LABS: Allen's Test Patient Unable; Oxygen 75 %; PEEP 5; Source Right Radial; Tidal Volume 450; Vent Rate 15
[2021-05-17 03:27] LABS: Appearance,Urine CLOUDY (Clear); Bilirubin,Urine Negative (Negative); Blood, Urine 3+ (Negative); Color,Urine RED (Yellow); Glucose,Urine (UA) Negative (Negative); Ketones,Urine Negative (Negative); Leukocyte Esterase,Urine 1+ (Negative); Nitrate,Urine Negative (Negative); PH,Urine 6.5 (5.0-8.5); Protein,Urine 3+ (Negative); Specific Gravity, Urine 1.025 (1.005-1.030)
[2021-05-17 03:28] LABS: RBC,Urine TNTC #/hpf (0-3); WBC,Urine 20-50 #/hpf (0-3)
[2021-05-17 03:57] LABS: Basophils # 0.1 K/mm3 (0-0.2); Basophils % 0.8 % (0.1-2.0); Eosinophils % 0.1 % (0.1-12.0); Hematocrit 38.2 % (37.0-47.0); Hemoglobin 11.1 g/dL (12.2-16.2); Lymphocytes # 4.5 K/mm3 (0.7-4.5); Lymphocytes % 26.9 % (10-50); Mean Corpuscular HGB Conc 28.9 g/dL (31.8-35.4); Mean Corpuscular Hemoglobin 25.2 pg (27.0-31.2); Mean Corpuscular Volume 87.2 fl (81-99); Mean Platelet Volume 7.5 fl (7.4-10.4); Monocytes # 1.3 K/mm3 (0.1-1.0); Monocytes % 7.9 % (1.7-9.3); Neutrophils # 10.8 K/mm3 (1.8-7.8); Neutrophils % 64.4 % (37.0-80.0); Platelet Count 191 K/mm3 (142-424); Red Blood Count 4.38 M/mm3 (4.20-5.40); Red Cell Distribution Width 17.9 % (11.5-17.5); White Blood Count 16.8 K/mm3 (4.8-10.8)
[2021-05-17 03:59] LABS: MANUAL DIFFERENTIAL MANUAL DIFFERENTIAL (MANUAL DIFF)
[2021-05-17 04:03] LABS: Hypochromasia 2+; Lymphocytes % 12 % (10-50); Microcytosis 1+; Monocytes % 1 % (2-9); Neutrophils % 81 % (42-76); Platelet Estimate Normal; Total Cells Counted 100
[2021-05-17 04:04] LABS: Chloride 97 mmol/L (98-107); Sodium 136 mmol/L (136-145)
[2021-05-17 04:08] LABS: Anion Gap 19.3 mEq/L (5-15); Calcium 6.8 mg/dl (8.4-10.2); Carbon Dioxide 26 mmol/L (22.0-30.0); Glucose 131 mg/dl (74-100)
[2021-05-17 04:13] LABS: Blood Urea Nitrogen 32 mg/dl (7-17)
[2021-05-17 04:17] LABS: Potassium 6.3 mmoL/L (3.5-5.1)
[2021-05-17 04:27] LABS: Creatinine Clearance Estimated 42 mL/min (50-200); Estimated Glomerular Filt Rate 32 ml/min (>60); GFR (African American) 38 ML/MIN (>60)
--- NOTE | 2021-05-17 05:00 | XR_ITS ---
PROCEDURE INFORMATION: Exam: XR Chest Exam date and time: 05/17/2021 5:00 AM Age: 75 years old Clinical indication: Device placement; Ett placement (vent status); Additional info: PT intubated. TECHNIQUE: Imaging protocol: XR of the chest. Views: 1 view. COMPARISON: CR XR CHEST 2V 05/11/2021 11:59 AM FINDINGS: Tubes, catheters and devices: Endotracheal tube approximately 1.7 cm above the anne marie, although the anne marie is not completely well visualized secondary to overlying medical monitoring equipment. Lungs: Bilateral lower lung field linear opacities suspect atelectasis or pneumonia. Pleural spaces: Bilateral lateral pleural thickening concerning for pleural effusions. Heart/Mediastinum: Cardiac silhouette persistently enlarged. Vasculature: Aortic arch calcification. Bones/joints: Osteopenia. IMPRESSION: 1. Bilateral lower lung field opacities. Atelectasis or pneumonia. 2. Bilateral pleural effusions. 3. New endotracheal tube tip relatively close to the anne marie and could be repositioned more cephalad.
--- NOTE | 2021-05-17 06:17 | PC.NURSE ---
due to technical issues with fax machines on night watch end orders for 60mL Kayexalate per tube once for hyperkalemia and 1mg glucagon IV once for bradycardia were never entered into mar but both meds have been given per telephone order from MD Neely
[2021-05-17 06:20] LABS: POC Glucose,Bedside 152 (70-110)
--- NOTE | 2021-05-17 08:34 | PC.NURSE ---
Fentanyl gtt started @ 25mcg/hr as pt is being externally paced.
--- NOTE | 2021-05-17 11:45 | PC.NURSE ---
Pt with eyes open and is following commands. Nods head yes and no as well as sticking out tongue on command. HR in the 90s. Milliamps decreased slowly and turned OFF while pulse remained palpable. Pulse remains in the 90s with BP 106/52. Pt denies pain. Fentanyl gtt @ 50mcg/hr.
[2021-05-17 11:51] LABS: Chloride 98 mmol/L (98-107)
[2021-05-17 11:52] LABS: Potassium 4.7 mmoL/L (3.5-5.1); Sodium 135 mmol/L (136-145)
--- NOTE | 2021-05-17 11:53 | HMH.HP ---
*Admission Date: 05/17/21 *Chief complaint: syncope and collapse, bradycardia *History of present illness: Patient is a 75-year-old white female, admitted to our service with Dr. Neely. She was transferred from an outside hospital. Patient is unable to give a history. By account she was found down at home, had a cardiac in the 30s. She was hypotensive. She was intubated at the scene by EMS personnel with a 7.5 tube. She was given fluid boluses and started on Levophed. Lab work at the outside hospital showed Covid negative, evaded troponin, elevated potassium at 6.3 lactate of 10.9. Her urine also had 1+ leukocyte esterase several WBCs. Patient is currently on the ventilator, SIMV mode with volume of 450. She is under sedation, starting to wake up a little bit, and an external pacer is in place. Her rate on the monitor is currently in the 90s. Review of history per nursing staff shows several comorbid conditions. 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 She is also diabetic. [facility] History Medical History: Reports:: Arrhythmia, Atherosclerotic Heart Disease, Atrial Fibrillation, Cancer, Congestive Heart Failure, Coronary Artery Disease, Deep Vein Thrombosis, Diabetes Mellitus Type 2, Hyperlipidemia, Hypertension, Myocardial Infarction Denies:: Diabetes Mellitus Type 1, Internal Pacemaker, MRSA, Seizures *Have you ever received a pneumonia vaccine?: (unknown) *Have you received a flu vaccine this season?: (unknown) Other Medical History: Reports: Arthritis, Hypothyroidism, Thyroid Disease. Denies: Blood Transfusion Reaction Laterality Cases: Right: Breast Biopsy Other Surgeries: Yes: Appendectomy, Cancer Surgery (small colon), Cardiac Catheterization, Cholecystectomy, Coronary Stent, Hysterectomy-Total, Other (intrathecalpainpumpimplant). No: Pacemaker Amputation: No Fractures: No - *Social History Last grade of school completed: High school graduate Smoking Status: Former smoker Tobacco Type: cigarettes # Packs/Day (cigarettes): 1 #Yrs smoked (if former smoker): 55 Alcohol Intake: never Alcohol Intake Frequency:: 0-2 drinks per day Substance Use Type: other *Occupational Status:: other Housing: house Household Members: spouse *Travel in the last 8 weeks: None Family Hx:: Cancer, Coronary Artery Disease, Diabetes, Heart Attack, Hyperlipidemia, Hypertension Review of Systems - Review of Systems Review of systems:: unable to obtain Meds Home Medications Medication Instructions Recorded Confirmed Type Atorvastatin Calcium [Lipitor 40mg 40 mg PO HS 11/23/17 05/07/21 History Tab] Clopidogrel Bisulfate [Plavix 75mg 75 mg PO DAILY 11/23/17 05/07/21 History Tab] Pantoprazole Sodium [Protonix 40mg 40 mg PO DAILY 11/23/17 05/07/21 History tablet] Semaglutide [Ozempic] 1 mg SQ WEEKLY 11/23/17 05/07/21 History glipiZIDE [Glucotrol Xl] 5 mg PO DAILY 11/23/17 05/07/21 History ALPRAZolam [Xanax 0.5mg tab] 0.5 mg PO AM 05/07/21 05/08/21 History ALPRAZolam [Xanax 1mg tab] 1 mg PO QPMWITHMEAL 05/07/21 05/08/21 History Apixaban [Eliquis 5mg tab] 5 mg PO BID 05/07/21 05/07/21 History Ezetimibe 10 mg PO HS 05/07/21 05/07/21 History Levothyroxine Sodium 112 mcg PO DAILYDM 05/07/21 05/07/21 History [Levothyroxine 112mcg (0.112mg) Tab] PARoxetine HCL [Paroxetine HCl] 40 mg PO DAILY 05/07/21 05/07/21 History Saccharomyces Boulardii [Florastor] 250 mg PO BID 05/07/21 05/07/21 History Insulin Glargine,Hum.rec.anlog 40 units SQ PM 05/08/21 05/08/21 History [Toujeo Max Solostar] Ipratropium/Albuterol Sulfate 3 ml INHALATION Q6H PRN 05/08/21 05/08/21 History [Iprat-Albut 0.5-3(2.5) mg/3 ml] ondansetron HCL [Ondansetron HCl] 8 mg PO TID PRN 05/08/21 05/08/21 History Furosemide [Lasix 40mg tablet] 120 mg PO BIDL 30 Days #180 tab 05/12/21 Rx Po
[2021-05-17 11:54] LABS: Magnesium 1.4 mg/dl (1.6-2.3); Phosphorous 5.8 mg/dl (2.5-4.5)
[2021-05-17 11:54] LABS: Alanine Aminotransferase 242 U/L (12-78); Alkaline Phosphatase 148 U/L (38-126); Anion Gap 12.7 mEq/L (5-15); Aspartate Amino Transferase 457 U/L (14-36); Bilirubin,Total 0.8 mg/dl (0.2-1.3); Carbon Dioxide 29 mmol/L (22.0-30.0)
[2021-05-17 11:55] LABS: Albumin Level 3.1 g/dl (3.5-5.0); Albumin/Globulin Ratio 1.1 (1.1-1.8); Calcium 6.5 mg/dl (8.4-10.2); Globulin 2.8 g/dL (1.3-3.2); Glucose 137 mg/dl (74-100); Total Protein,Serum 5.9 g/dl (6.3-8.2)
[2021-05-17 12:20] LABS: Blood Urea Nitrogen 45 mg/dl (7-17); Creatinine Clearance Estimated 39 mL/min (50-200); Estimated Glomerular Filt Rate 29 ml/min (>60); GFR (African American) 36 ML/MIN (>60)
[2021-05-17 12:30] LABS: Magnesium 1.5 mg/dl (1.6-2.3)
--- NOTE | 2021-05-17 12:34 | P.CONPHA_ITS ---
[facility] Pharmacy VTE Monitoring - Patient Demographics Admission date: 05/17/21 Report Date: 05/17/21 Time: 12:34 Allergies/Adverse Reactions: Patient Allergies No Known Drug Allergies [NKDA] Allergy (Unknown, Verified 11/25/20 15:01) Height: 1.57 m Weight: 84 kg Patient Problems: Current Active Problems Failed back syndrome (Chronic) Coronary artery disease (Chronic) Hypertension (Chronic) Hyperlipidemia (Chronic) Atrial fibrillation (Chronic) Current use of alf anticoagulation (Chronic) Mitral regurgitation (Acute) History of colon cancer (Acute) Small lymphocytic lymphoma (Acute) Pulmonary hypertension (Acute) Splenomegaly (Acute) LVH (left ventricular hypertrophy) (Acute) Diastolic dysfunction with heart failure (Acute) Obesity (BMI 30-39.9) (Acute) Bradycardia (Acute) Syncope and collapse (Acute) Diabetes (Acute) - VTE Risk Labs: VTE Related Lab Results Hgb 11.1 g/dL (12.2-16.2) L 05/17/21 03:45 Hct 38.2 % (37.0-47.0) 05/17/21 03:45 Plt Count 191 K/mm3 (142-424) 05/17/21 03:45 BUN 32 mg/dl (7-17) H 05/17/21 03:45 Creatinine 1.60 mg/dl (0.52-1.04) H 05/17/21 03:45 Estimated Creat Clear 42 mL/min (50-200) 05/17/21 03:45 Was VTE Risk Assessment Performed: No Clinical Trial Participant: No - Prophylaxis VTE Prophylaxis Ordered?: Yes Types of VTE Prophylaxis: TEDS Knee High, Pharmacological Location of Applied Device: Bilateral Lower Extremeties Pharmacologic Type: Enoxaparin
[2021-05-17 12:36] LABS: POC Glucose,Bedside 161 (70-110)
[2021-05-17 13:02] LABS: Thyroid Stimulating Hormone 3.16 uIU/mL (0.465-4.68)
[2021-05-17 14:12] LABS: Troponin I 0.02 ng/ml (0.00-0.034)
--- NOTE | 2021-05-17 14:31 | HMH.PHAINT ---
MEDICATION RECONCILIATION COMPLETE USING LIST FROM MOST RECENT HOSPITALIZATION (DISCHARGED 05/12/21 FROM [facility]) AND EXTERNAL PHARMACY FILL HISTORY.
[2021-05-17 16:56] LABS: POC Glucose,Bedside 111 (70-110)
[2021-05-17 17:07] LABS: Microscopic,Cath URINE MICROSCOPIC (MICROSCOPIC)
--- NOTE | 2021-05-17 17:20 | PC.WOUNDNOTE ---
picture of pt's buttock per intubated pt protocol 05/17/2021 [id number] shift. taken by this RN
[2021-05-17 17:40] LABS: Chloride 98 mmol/L (98-107); Potassium 4.2 mmoL/L (3.5-5.1); Sodium 134 mmol/L (136-145)
[2021-05-17 17:43] LABS: Alanine Aminotransferase 237 U/L (12-78); Albumin Level 2.9 g/dl (3.5-5.0); Alkaline Phosphatase 122 U/L (38-126); Anion Gap 10.2 mEq/L (5-15); Aspartate Amino Transferase 316 U/L (14-36); Bilirubin,Total 0.6 mg/dl (0.2-1.3); Blood Urea Nitrogen 47 mg/dl (7-17); Calcium 6.5 mg/dl (8.4-10.2); Carbon Dioxide 30 mmol/L (22.0-30.0); Creatinine Clearance Estimated 35 mL/min (50-200); Estimated Glomerular Filt Rate 26 ml/min (>60); GFR (African American) 31 ML/MIN (>60); Globulin 2.8 g/dL (1.3-3.2); Glucose 97 mg/dl (74-100); Total Protein,Serum 5.7 g/dl (6.3-8.2)
[2021-05-17 17:52] LABS: Appearance,Urine/Cath CLEAR (Clear); Bilirubin,Cath Negative (Negative); Blood, Urine/Cath TRACE-I (Negative); Color,Urine/Cath YELLOW (Yellow); Glucose,Urine/Cath (UA) Negative (Negative); Ketones,Urine/Cath Negative (Negative); Leukocyte Esterase,Cath 1+ (Negative); Nitrate,Cath Negative (Negative); Protein,Urine/Cath TRACE (Negative); Specific Gravity, Urine/Cath 1.025 (1.005-1.030); Urobilinogen,Cath 0.2 EU/dl (0.2)
[2021-05-17 17:59] LABS: Hyaline Casts,Urine/Cath OCC #/lpf (0)
[2021-05-17 21:04] LABS: Troponin I 0.02 ng/ml (0.00-0.034)
[2021-05-18] VITALS (31 sets, daily range): BP systolic 109–181; BP diastolic 44–81; PULSE 66–87; RESP 12–25; TEMP 36.6–37.3; O2SAT 97–100; BMI 34.0
--- NOTE | 2021-05-18 05:51 | PC.NURSE ---
Willy ASCENCIO from [facility] notified RN that pt's preliminary blood culture results came back in 1 aerobic bottle with gram positive cocci in clusters
--- NOTE | 2021-05-18 06:00 | XR_ITS ---
PROCEDURE INFORMATION: Exam: XR Chest Exam date and time: 05/18/2021 6:00 AM Age: 75 years old Clinical indication: Device placement; Ett placement (vent status); Additional info: Resp failure vent status TECHNIQUE: Imaging protocol: XR of the chest. Views: 1 view. COMPARISON: CR XR CHEST PORTABLE 05/17/2021 3:14 AM FINDINGS: Tubes, catheters and devices: The distal end of the enteric tube projects over the left upper quadrant in the expected region of the stomach in courses slightly beyond the imaged. Endotracheal tube as before. Lungs: Mild bibasilar passive atelectasis or consolidation. Question mild pulmonary edema. Pleural spaces: Small bilateral pleural effusions. No pneumothorax. Heart/Mediastinum: Cardiomegaly and pulmonary vascular congestion. Bones/joints: Unremarkable. IMPRESSION: 1. Satisfactory appearance of the visualized enteric tube. 2. Small bilateral pleural effusions with bibasilar passive atelectasis or consolidation. 3. Otherwise, as above.
[2021-05-18 07:13] LABS: MANUAL DIFFERENTIAL MANUAL DIFFERENTIAL (MANUAL DIFF)
[2021-05-18 07:30] LABS: Alanine Aminotransferase 192 U/L (12-78); Albumin Level 2.8 g/dl (3.5-5.0); Albumin/Globulin Ratio 1.1 (1.1-1.8); Alkaline Phosphatase 102 U/L (38-126); Anion Gap 9.3 mEq/L (5-15); Aspartate Amino Transferase 190 U/L (14-36); Bilirubin,Total 0.6 mg/dl (0.2-1.3); Blood Urea Nitrogen 52 mg/dl (7-17); Calcium 6.9 mg/dl (8.4-10.2); Carbon Dioxide 30 mmol/L (22.0-30.0); Chloride 103 mmol/L (98-107); Creatinine Clearance Estimated 39 mL/min (50-200); Estimated Glomerular Filt Rate 29 ml/min (>60); GFR (African American) 36 ML/MIN (>60); Globulin 2.5 g/dL (1.3-3.2); Glucose 53 mg/dl (74-100); Potassium 3.3 mmoL/L (3.5-5.1); Sodium 139 mmol/L (136-145); Total Protein,Serum 5.3 g/dl (6.3-8.2)
[2021-05-18 07:43] LABS: Basophils % 0.6 % (0.1-2.0); Eosinophils % 0.4 % (0.1-12.0); Hematocrit 26.3 % (37.0-47.0); Lymphocytes # 1.3 K/mm3 (0.7-4.5); Lymphocytes % 39.4 % (10-50); Mean Corpuscular HGB Conc 30.6 g/dL (31.8-35.4); Mean Corpuscular Hemoglobin 25.4 pg (27.0-31.2); Mean Corpuscular Volume 82.8 fl (81-99); Monocytes # 0.2 K/mm3 (0.1-1.0); Monocytes % 5.6 % (1.7-9.3); Neutrophils # 1.8 K/mm3 (1.8-7.8); Platelet Count 121 K/mm3 (142-424); Red Blood Count 3.17 M/mm3 (4.20-5.40); Red Cell Distribution Width 18.7 % (11.5-17.5); White Blood Count 3.3 K/mm3 (4.8-10.8)
[2021-05-18 08:00] LABS: ABG Base Excess 5.6 mmol/L (-2.4-2.3); ABG HCO3 27.8 mmhg (22.0-26.0); ABG Oxygen Saturation 100 % (90-100); ABG PCO2 31.8 mmhg (35.0-45.0); ABG TCO2 28.8 mmhg (23-27)
[2021-05-18 08:07] LABS: Allen's Test Acceptable; Oxygen 60% %; PEEP 5; Source Right Radial; Tidal Volume 440; Vent Rate 18
[2021-05-18 08:09] LABS: ABG PH 7.56 mmol/L (7.35-7.45)
[2021-05-18 08:10] LABS: Lactate Arterial 1.3 mmol/L (0.4-2.0)
--- NOTE | 2021-05-18 08:10 | PC.NURSE ---
Dr. Gusman notified of pH 7.56
--- NOTE | 2021-05-18 09:45 | PC.NURSE ---
Received call from Dr. Gusman. He ordered to discontinue Kayexelate, give LR 500mL bolus, give Potassium 20mEq IV x 1 dose, SBT, and to extubate if SBT successful. Orders faxed to pharmacy. RT ([facility]) updated. Dr. Neely updated as well.
--- NOTE | 2021-05-18 10:36 | PC.NURSE ---
SBT attempted but unsuccessful. Pt write on paper my breathing is worse . RT @ BS and placed vent back on previous settings. Dr. Gusman made aware.
[2021-05-18 11:41] LABS: POC Glucose,Bedside 66 (70-110)
[2021-05-18 12:00] LABS: Lymphocytes % 37 % (10-50); Monocytes % 5 % (2-9); Neutrophils % 58 % (42-76); Nucleated Red Blood Cells 2; Platelet Estimate Normal; Total Cells Counted 100
[2021-05-18 12:01] LABS: Hypochromasia 1+
--- NOTE | 2021-05-18 13:04 | HMH.ACPN2 ---
Internal Medicine - PN: Subj *Date: 05/18/21 *Time: 13:04 Interval history: more alert sbt underway hoping to extubate denies active chest pain trop neg Exam Vital signs and Labs for Last 24 Hours: Temp Pulse Resp BP Pulse Ox 97.8 F 82 20 147/61 H 100 05/18/21 12:00 05/18/21 12:00 05/18/21 12:20 05/18/21 12:00 05/18/21 12:20 Laboratory Results - last 24 hr 05/17/21 03:15: Urine Color Red, Urine Appearance Cloudy, Urine pH 6.5, Ur Specific [place] 1.025, Urine Protein 3+, Urine Glucose (UA) Negative, Urine Ketones Negative, Urine Blood 3+, Urine Nitrate Negative, Urine Bilirubin Negative, Urine Urobilinogen 1.0, Ur Leukocyte Esterase 1+ A, Urine RBC Tntc, Urine WBC 20-50 05/17/21 11:12: Magnesium 1.5 L, TSH 3.16 05/17/21 11:15: Sodium 135 L, Potassium 4.7 D, Chloride 98, Carbon Dioxide 29, Anion Gap 12.7, BUN 45 H D, Creatinine 1.70 H, Estimated Creat Clear 39, Estimated GFR 29 L, Est GFR ( Amer) 36 L, Glucose 137 H, Calcium 6.5 L, Total Bilirubin 0.8, AST 457 H*, ALT 242 H, Alkaline Phosphatase 148 H, Total Protein 5.9 L, Albumin 3.1 L, Globulin 2.8, Albumin/Globulin Ratio 1.1 05/17/21 12:13: POC Glucose 161 H 05/17/21 13:32: Troponin I 0.02 05/17/21 16:30: Urine Color Yellow, Urine Appearance Clear, Urine pH 6.0, Ur Specific [place] 1.025, Urine Protein Trace, Urine Glucose (UA) Negative, Urine Ketones Negative, Urine Blood Trace-i, Urine Nitrate Negative, Urine Bilirubin Negative, Urine Urobilinogen 0.2, Ur Leukocyte Esterase 1+ A, Urine RBC 3-5, Urine WBC 10-20 A, Hyaline Casts Occ 05/17/21 16:37: POC Glucose 111 H 05/17/21 16:40: Sodium 134 L, Potassium 4.2, Chloride 98, Carbon Dioxide 30, Anion Gap 10.2, BUN 47 H, Creatinine 1.90 H, Estimated Creat Clear 35, Estimated GFR 26 L, Est GFR ( Amer) 31 L, Glucose 97 D, Calcium 6.5 L, Total Bilirubin 0.6, AST 316 H* D, ALT 237 H, Alkaline Phosphatase 122, Total Protein 5.7 L, Albumin 2.9 L, Globulin 2.8, Albumin/Globulin Ratio 1.0 L 05/17/21 19:35: Troponin I 0.02 05/18/21 06:10: Sodium 139, Potassium 3.3 L D, Chloride 103, Carbon Dioxide 30, Anion Gap 9.3, BUN 52 H, Creatinine 1.70 H, Estimated Creat Clear 39, Estimated GFR 29 L, Est GFR ( Amer) 36 L, Glucose 53 L D, Calcium 6.9 L, Total Bilirubin 0.6, AST 190 H D, ALT 192 H, Alkaline Phosphatase 102, Total Protein 5.3 L, Albumin 2.8 L, Globulin 2.5, Albumin/Globulin Ratio 1.1 05/18/21 06:10: WBC 3.3 L D, RBC 3.17 L D, Hgb 8.0 L, Hct 26.3 L, MCV 82.8, MCH 25.4 L, MCHC 30.6 L, RDW 18.7 H, Plt Count 121 L D, MPV 9.0, Neut % (Auto) 54.0, Lymph % (Auto) 39.4, [place] % (Auto) 5.6, Eos % (Auto) 0.4, Baso % (Auto) 0.6, Neut # (Auto) 1.8, Lymph # (Auto) 1.3, [place] # (Auto) 0.2, Eos # (Auto) 0.0, Baso # (Auto) 0.0, Total Counted 100, Neutrophils % (Manual) 58, Lymphocytes % (Manual) 37, Monocytes % (Manual) 5, Nucleated RBCs 2, Platelet Estimate Normal, Hypochromasia 1+ 05/18/21 06:45: POC Glucose 66 L 05/18/21 07:00: Specimen Source Right radial, O2 % 60%, ABG pH 7.56 H*, ABG pCO2 31.8 L, ABG pO2 163.0 H, ABG HCO3 27.8 H, ABG Total CO2 28.8 H, ABG O2 Saturation 100, ABG Base Excess 5.6 H, Marek Test Acceptable, Vent Rate 18, Tidal Volume 440, PEEP 5 05/18/21 08:06: ABG Lactate 1.3 I & O for Last 24 hours: Intake & Output 05/15/21 05/16/21 05/17/21 05/19/21 23:59 23:59 23:59 00:59 Intake Total 955 / 955 47 / 47 Output Total 623 / 673 590 / 590 Balance 332 / 282 -543 / -543 Weight 185 lb 3.013 oz 185 lb 3.013 oz Microbiology Reports for the Last 24 Hours: Microbiology 05/17/21 10:50 Sputum - Endotracheal Tube Aspirate Gram Stain - Final 05/17/21 10:50 Sputum - Endotracheal Tube Aspirate Sputum Culture - Preliminary 05/17/21 03:15 Urine,Catheterized Urine Culture - Preliminary Gram Negative Rods - Constitutional somnolent - *Routine HEENT Exam Head: Present: normocephalic Eye: Present: EOMI, PERRL ENT: Present: mucous membranes moist - *Routine N
--- NOTE | 2021-05-18 16:00 | PC.NURSE ---
Pt did well on SBT today. Dr. Gusman wishes to extubate tomorrow morning instead of today. Tubefeed (Glucerna) started at this time at a rate of 20mL/hr. Will increase rate by 10mL Q8hrs for a goal rate of 70mL/hr.
[2021-05-18 16:47] LABS: POC Glucose,Bedside 62 (70-110)
[2021-05-18 17:49] LABS: POC Glucose,Bedside 85 (70-110)
[2021-05-18 18:55] LABS: POC Glucose,Bedside 79 (70-110)
[2021-05-18 20:01] LABS: POC Glucose,Bedside 86 (70-110)
[2021-05-19] VITALS (27 sets, daily range): BP systolic 134–197; BP diastolic 58–98; PULSE 60–94; RESP 17–25; TEMP 36.4–37.3; O2SAT 91–100; BMI 34.1
[2021-05-19 05:46] LABS: POC Glucose,Bedside 103 (70-110)
[2021-05-19 07:58] LABS: ABG Base Excess 1.3 mmol/L (-2.4-2.3); ABG HCO3 25.5 mmhg (22.0-26.0); ABG Oxygen Saturation 97 % (90-100); ABG PCO2 39.1 mmhg (35.0-45.0); ABG PH 7.43 mmol/L (7.35-7.45); ABG PO2 90.1 mmhg (80-100); ABG TCO2 26.7 mmhg (23-27)
[2021-05-19 07:59] LABS: Allen's Test Acceptable; Oxygen 40 %; PEEP 5; Pressure Support 10; Source Right Radial
[2021-05-19 08:01] LABS: Lactate Arterial 1.1 mmol/L (0.4-2.0)
--- NOTE | 2021-05-19 09:50 | HMH.ACPN2 ---
Internal Medicine - PN: Subj *Date: 05/19/21 *Time: 08:20 Interval history: pt intubated, awake and alert- plans to extubate Exam Vital signs and Labs for Last 24 Hours: Temp Pulse Resp BP Pulse Ox 97.9 F 74 23 160/66 H 97 05/19/21 08:00 05/19/21 06:00 05/19/21 06:30 05/19/21 06:00 05/19/21 06:30 Laboratory Results - last 24 hr 05/18/21 06:10: Total Counted 100, Neutrophils % (Manual) 58, Lymphocytes % (Manual) 37, Monocytes % (Manual) 5, Nucleated RBCs 2, Platelet Estimate Normal, Hypochromasia 1+ 05/18/21 06:45: POC Glucose 66 L 05/18/21 16:38: POC Glucose 62 L 05/18/21 17:39: POC Glucose 85 05/18/21 18:47: POC Glucose 79 05/18/21 19:28: POC Glucose 86 05/19/21 05:35: POC Glucose 103 05/19/21 06:00: Specimen Source Right radial, O2 % 40, ABG pH 7.43, ABG pCO2 39.1, ABG pO2 90.1, ABG HCO3 25.5, ABG Total CO2 26.7, ABG O2 Saturation 97, ABG Base Excess 1.3, Marek Test Acceptable, PEEP 5 I & O for Last 24 hours: Intake & Output 05/16/21 05/17/21 05/18/21 05/19/21 10:59 10:59 11:59 11:59 Intake Total 1595 / 1595 Output Total 1002 / 1002 Balance 593 / 593 Weight 185 lb 6.54 oz Microbiology Reports for the Last 24 Hours: Microbiology 05/17/21 10:50 Sputum - Endotracheal Tube Aspirate Gram Stain - Final 05/17/21 10:50 Sputum - Endotracheal Tube Aspirate Sputum Culture - Preliminary 05/17/21 03:15 Urine,Catheterized Urine Culture - Preliminary Escherichia coli 05/17/21 16:30 Urine,Catheterized Urine Culture - Preliminary NO GROWTH AFTER 24 HOURS - Constitutional no acute distress - *Routine HEENT Exam Head: Present: normocephalic Eye: Present: PERRL ENT: Present: mucous membranes moist - *Routine Neck Exam Present: supple. Absent: lymphadenopathy - *Routine Respiratory Exam Present: patient mechanically ventilated - *Routine Cardiovascular Exam Present: RRR - *Routine Abdominal Exam Present: soft, normoactive bowel sounds. Absent: tenderness - *Routine Extremities Exam Absent: cyanosis, clubbing, edema - *Routine Skin Exam Present: warm. Absent: rash - *Routine Neurological Exam Present: alert, oriented X3 Assessment and Plan (1) Bradycardia Status: Acute Category: Medical Code(s): R00.1 - Bradycardia, unspecified (2) Syncope and collapse Status: Acute Category: Medical Code(s): R55 - Syncope and collapse (3) Diastolic dysfunction with heart failure Status: Acute Qualifiers: Heart failure chronicity: acute on chronic Qualified Code(s): I50.33 - Acute on chronic diastolic (congestive) heart failure Category: Medical Code(s): I50.30 - Unspecified diastolic (congestive) heart failure (4) History of colon cancer Status: Acute Category: Medical Code(s): Z85.038 - Personal history of other malignant neoplasm of large intestine (5) LVH (left ventricular hypertrophy) Status: Acute Category: Medical Code(s): I51.7 - Cardiomegaly (6) Mitral regurgitation Status: Acute Category: Medical Code(s): I34.0 - Nonrheumatic mitral (valve) insufficiency (7) Obesity (BMI 30-39.9) Status: Acute Category: Medical Code(s): E66.9 - Obesity, unspecified (8) Pulmonary hypertension Status: Acute Category: Medical Code(s): I27.20 - Pulmonary hypertension, unspecified (9) Small lymphocytic lymphoma Status: Acute Category: Medical Code(s): C83.00 - Small cell B-cell lymphoma, unspecified site (10) Splenomegaly Status: Acute Category: Medical Code(s): R16.1 - Splenomegaly, not elsewhere classified (11) Atrial fibrillation Status: Chronic Category: Medical Code(s): I48.91 - Unspecified atrial fibrillation (12) Coronary artery disease Status: Chronic Qualifiers: Coronary Disease-Associated Artery/Lesion type: [place] artery [place] vs. transplanted heart: [place] heart Associated angina: without angina Q
--- NOTE | 2021-05-19 10:05 | HMH.PULMCON ---
*Admission Date: 05/17/21 *Reason for consult:: Acute hypoxic respiratory failure *History of present illness: Patient intubated and sedated, much of the history is obtained from the chart review and patient has been. Ms. Lemons is a 75-year-old female greater than [id number] smoking history baseline respiratory distress, on 4 L long-term oxygen therapy at home, on inhalers, recently discharged in the hospital for volume overload with severely elevated RVSP at 72 mm Hg discharged on Lasix twice daily presented to the hospital after she was found down unresponsive bradycardic while she was intubated after EMS arrived. [facility] History Medical History: Reports:: Arrhythmia, Atherosclerotic Heart Disease, Atrial Fibrillation, Cancer, Congestive Heart Failure, Coronary Artery Disease, Deep Vein Thrombosis, Diabetes Mellitus Type 2, Hyperlipidemia, Hypertension, Myocardial Infarction Denies:: Diabetes Mellitus Type 1, Internal Pacemaker, MRSA, Seizures *Have you ever received a pneumonia vaccine?: (unknown) *Have you received a flu vaccine this season?: (unknown) Other Medical History: Reports: Arthritis, Hypothyroidism, Thyroid Disease. Denies: Blood Transfusion Reaction Laterality Cases: Right: Breast Biopsy Other Surgeries: Yes: Appendectomy, Cancer Surgery (small colon), Cardiac Catheterization, Cholecystectomy, Coronary Stent, Hysterectomy-Total, Other (intrathecalpainpumpimplant). No: Pacemaker Amputation: No Fractures: No - *Social History Last grade of school completed: High school graduate Smoking Status: Former smoker Tobacco Type: cigarettes # Packs/Day (cigarettes): 1 #Yrs smoked (if former smoker): 55 Alcohol Intake: never Alcohol Intake Frequency:: 0-2 drinks per day Substance Use Type: other *Occupational Status:: other Housing: house Household Members: spouse *Travel in the last 8 weeks: None Family Hx:: Cancer, Coronary Artery Disease, Diabetes, Heart Attack, Hyperlipidemia, Hypertension ROS - Review of Systems Review of systems:: unable to obtain Intubated and sedated Meds Home Medications Medication Instructions Recorded Confirmed Type Atorvastatin Calcium [Lipitor 40mg 40 mg PO HS 11/23/17 05/17/21 History Tab] Clopidogrel Bisulfate [Plavix 75mg 75 mg PO DAILY 11/23/17 05/17/21 History Tab] Pantoprazole Sodium [Protonix 40mg 40 mg PO HS 11/23/17 05/17/21 History tablet] Semaglutide [Ozempic] 1 mg SQ WEEKLY 11/23/17 05/17/21 History glipiZIDE [Glucotrol Xl] 5 mg PO DAILYDM 11/23/17 05/17/21 History ALPRAZolam [Xanax 0.5mg tab] 0.5 mg PO AM 05/07/21 05/17/21 History ALPRAZolam [Xanax 1mg tab] 1 mg PO QPMWITHMEAL 05/07/21 05/17/21 History Apixaban [Eliquis 5mg tab] 5 mg PO BID 05/07/21 05/17/21 History Ezetimibe 10 mg PO HS 05/07/21 05/17/21 History Levothyroxine Sodium 112 mcg PO DAILYDM 05/07/21 05/17/21 History [Levothyroxine 112mcg (0.112mg) Tab] PARoxetine HCL [Paroxetine HCl] 40 mg PO DAILY 05/07/21 05/17/21 History Saccharomyces Boulardii [Florastor] 250 mg PO BID 05/07/21 05/17/21 History Insulin Glargine,Hum.rec.anlog 40 units SQ PM 05/08/21 05/17/21 History [Toujeo Max Solostar] Ipratropium/Albuterol Sulfate 3 ml INHALATION Q6HP PRN 05/08/21 05/17/21 History [Iprat-Albut 0.5-3(2.5) mg/3 ml] ondansetron HCL [Ondansetron HCl] 8 mg PO TIDP PRN 05/08/21 05/17/21 History Furosemide [Lasix 40mg tablet] 120 mg PO BIDL 05/17/21 05/17/21 History Potassium Chloride [Klor-Con 10mEq 20 meq PO DAILY 05/17/21 05/17/21 History tab] Spironolactone [Aldactone 25mg 50 mg PO BID 05/17/21 05/17/21 History Tab] Verapamil HCl [Calan SR 120mg 120 mg PO BID 05/17/21 05/17/21 History tablet] bisoproloL fumarate [Bisoprolol 10 mg PO BID 05/17/21 05/17/21 History Fumarate] Allergies Allergy/AdvReac Type Severity Reaction Status Date / Time No Known Drug Allergies Allergy Unknown Verified 11/25/20 15:01 [NKDA] Exam - Constitutional Const
[2021-05-19 10:13] LABS: Basophils # 0.1 K/mm3 (0-0.2); Basophils % 0.7 % (0.1-2.0); Eosinophils % 0.3 % (0.1-12.0); Hematocrit 34.2 % (37.0-47.0); Hemoglobin 10.2 g/dL (12.2-16.2); Lymphocytes # 1.8 K/mm3 (0.7-4.5); Lymphocytes % 26.2 % (10-50); Mean Corpuscular HGB Conc 29.9 g/dL (31.8-35.4); Mean Corpuscular Volume 83.4 fl (81-99); Mean Platelet Volume 8.6 fl (7.4-10.4); Monocytes # 0.4 K/mm3 (0.1-1.0); Monocytes % 5.5 % (1.7-9.3); Neutrophils # 4.5 K/mm3 (1.8-7.8); Neutrophils % 67.3 % (37.0-80.0); Platelet Count 182 K/mm3 (142-424); Red Cell Distribution Width 18.3 % (11.5-17.5); White Blood Count 6.7 K/mm3 (4.8-10.8)
--- NOTE | 2021-05-19 12:10 | HMH.CNCARD ---
History of Present Illness Consult date: 05/19/21 Requesting physician: Nile Griffith Consult reason: congestive heart failure Chief complaint: soa History of present illness: This is a 75-year-old white female who was transferred from an outside facility to [facility]. The patient is unable to give any history about what happened to her and why she was admitted to the hospital. From her he reports that she was found down at home. Her heart rate was in the 30s and she was hypotensive. The patient was intubated at the scene by EMS and she was given fluid boluses and started on a Levophed drip. The patient remained intubated and on the ventilator until this morning. She was successfully extubated today. I saw the patient right after being extubated. She denies any chest pain or pressure. She states that she is a little short of breath at times and has a really dry mouth. The patient really wants something to drink. She denies any fever, chills, nausea, vomiting, diarrhea, PND or orthopnea. Note the patient does have a history of lymphoma and sees oncology for this. She underwent left and right cardiac catheterization on her last hospital admission a few weeks ago. The patient had patent coronary artery disease and no revascularization was required. Her right cardiac catheterization showed that she had diastolic congestive heart failure and pulmonary hypertension that was inadequately treated. [facility] History I have reviewed the patient's past medical history: Yes Medical History: Reports:: Arrhythmia, Atherosclerotic Heart Disease, Atrial Fibrillation, Cancer, Congestive Heart Failure, Coronary Artery Disease, Deep Vein Thrombosis, Diabetes Mellitus Type 2, Hyperlipidemia, Hypertension, Myocardial Infarction Denies:: Diabetes Mellitus Type 1, Internal Pacemaker, MRSA, Seizures *Have you ever received a pneumonia vaccine?: (unknown) *Have you received a flu vaccine this season?: (unknown) Other Medical History: Reports: Arthritis, Hypothyroidism, Thyroid Disease. Denies: Blood Transfusion Reaction Laterality Cases: Right: Breast Biopsy Other Surgeries: Yes: Appendectomy, Cancer Surgery (small colon), Cardiac Catheterization, Cholecystectomy, Coronary Stent, Hysterectomy-Total, Other (intrathecalpainpumpimplant). No: Pacemaker Amputation: No Fractures: No - *Social History Last grade of school completed: High school graduate Smoking Status: Former smoker Tobacco Type: cigarettes # Packs/Day (cigarettes): 1 #Yrs smoked (if former smoker): 55 Alcohol Intake: never Alcohol Intake Frequency:: 0-2 drinks per day Substance Use Type: other *Occupational Status:: other Housing: house Household Members: spouse *Travel in the last 8 weeks: None Family Hx:: Cancer, Coronary Artery Disease, Diabetes, Heart Attack, Hyperlipidemia, Hypertension Meds Home Medications Medication Instructions Recorded Confirmed Type Atorvastatin Calcium [Lipitor 40mg 40 mg PO HS 11/23/17 05/17/21 History Tab] Clopidogrel Bisulfate [Plavix 75mg 75 mg PO DAILY 11/23/17 05/17/21 History Tab] Pantoprazole Sodium [Protonix 40mg 40 mg PO HS 11/23/17 05/17/21 History tablet] Semaglutide [Ozempic] 1 mg SQ WEEKLY 11/23/17 05/17/21 History glipiZIDE [Glucotrol Xl] 5 mg PO DAILYDM 11/23/17 05/17/21 History ALPRAZolam [Xanax 0.5mg tab] 0.5 mg PO AM 05/07/21 05/17/21 History ALPRAZolam [Xanax 1mg tab] 1 mg PO QPMWITHMEAL 05/07/21 05/17/21 History Apixaban [Eliquis 5mg tab] 5 mg PO BID 05/07/21 05/17/21 History Ezetimibe 10 mg PO HS 05/07/21 05/17/21 History Levothyroxine Sodium 112 mcg PO DAILYDM 05/07/21 05/17/21 History [Levothyroxine 112mcg (0.112mg) Tab] PARoxetine HCL [Paroxetine HCl] 40 mg PO DAILY 05/07/21 05/17/21 History Saccharomyces Boulardii [Florastor] 250 mg PO BID 05/07/21 05/17/21 History Insulin Glargine,Hum.rec.anlog 40 units SQ PM 05/08/21 05/17/21 History [Touareliso Max Solostar] Ipratropiu
[2021-05-19 13:19] LABS: POC Glucose,Bedside 150 (70-110)
--- NOTE | 2021-05-19 13:44 | DIET.NUTRFU ---
Tubefeeding was discontinued, patient was extubated. Will see speech to evaluate for appropriate diet. Will continue to monitor for nutritional needs. Patient was just here on 05/08 with wt of 80kg, stable. Reported at that time that she eats mostly microwave meals 2/day. Family and patient seem anxious about eating, will wait to visit till after seen by [employer].
--- NOTE | 2021-05-19 13:52 | SW/DCPLANNER ---
Addendum entered by [facility] 05/23/21 14:28: Unique hansen/ Jenni has confirmed that information/order has been reviewed and services will begin soon for this patient. Addendum entered by [facility] 05/23/21 13:21: Patient information/order has been faxed to [facility]. Addendum entered by [facility] 05/23/21 09:20: This patient is adamant to return home at time of discharge. Patient stated that she resides at home with her , has home health ([facility]), family present 28/09 and has all appropriate home DME. I called and discussed this with patients this AM and he has stated that he concurs with patient returning home and confirmed patient will have someone home with her 28/09. I have reiterated to patient and family multiple times this week and this AM that we highly encouraged patient that she needs SNF to return home safely: patient has refused stating she will be safe at home with her family. Patient may discharge later today. Addendum entered by [facility] 05/22/21 11:42: This patient has been accepted to [facility] per Mitzy. I informed patient and she stated that she would need to speak with her patient. I also explained to patient that there are very few facilities in network with patients insurance and this may be an only option. I will also call and update patients . Mitzy with [facility] has started precert for this patient and has requested another COVID swab. Patient is medically stable for discharge today. Addendum entered by [facility] 05/22/21 10:09: Ramon Alvarado did an onsite and denied this patient. Patient also expressed an interest in [facility]: currently no beds available. I called patients via phone regarding discharge plans and discussed [facility] in [place] and [facility]: is agreeable to these facilities. I will continue to follow up with Echo from [facility] and Mitzy from [facility]. Original Note: I spoke with this patient regarding plans once medically stable for discharge. Patient stated that she resides at home with her , uses a rolling walker at home and is currently established with [facility] health services. Patient stated that she has been thinking about short term placement recently and would be interested in [facility]. I explained to patient that I would have to find a facility in network with patients insurance ([facility] or [facility]) and fax information once PT/OT evaluation is completed. Patient then stated that she is tired at this time and would like to further discuss placement tomorrow. Patient also requested that I wait to speak with her regarding discharge plans. Patient did have a family member/friend present at time of my visit. Discharge date is unknown at this time.
--- NOTE | 2021-05-19 13:56 | PC.WOUNDNOTE ---
pic from noon assessment
[2021-05-19 22:08] LABS: POC Glucose,Bedside 206 (70-110)
[2021-05-20] VITALS (9 sets, daily range): BP systolic 143–180; BP diastolic 57–75; PULSE 60–81; RESP 16–20; TEMP 36.4–36.9; O2SAT 90–97; BMI 33.7
[2021-05-20 00:52] LABS: POC Glucose,Bedside 155 (70-110)
--- NOTE | 2021-05-20 04:34 | PC.NURSE ---
Pt alert to self. She has had difficulty understanding POC and has had to redirected often. She is currently on 4L O2 NC. Scattered wheezing noted. Pt has nonproductive cough. She is NPO and has swallow eval in AM. VS have remained stable. F/C draining to bedside. New IV placed. #20 in LAC. No other concerns at this time. Will continue to monitor.
[2021-05-20 06:37] LABS: POC Glucose,Bedside 167 (70-110)
[2021-05-20 07:07] LABS: Anion Gap 11.2 mEq/L (5-15); Blood Urea Nitrogen 39 mg/dl (7-17); Calcium 7.7 mg/dl (8.4-10.2); Carbon Dioxide 31 mmol/L (22.0-30.0); Chloride 102 mmol/L (98-107); Creatinine Clearance Estimated 55 mL/min (50-200); Estimated Glomerular Filt Rate 44 ml/min (>60); GFR (African American) 53 ML/MIN (>60); Glucose 158 mg/dl (74-100); Potassium 4.2 mmoL/L (3.5-5.1); Sodium 140 mmol/L (136-145)
[2021-05-20 07:10] LABS: Basophils % 0.8 % (0.1-2.0); Eosinophils % 0.4 % (0.1-12.0); Lymphocytes # 1.2 K/mm3 (0.7-4.5); Monocytes # 0.2 K/mm3 (0.1-1.0); Neutrophils # 1.6 K/mm3 (1.8-7.8); White Blood Count 3.1 K/mm3 (4.8-10.8)
[2021-05-20 07:23] LABS: Hematocrit 30.5 % (37.0-47.0); Lymphocytes % 40.3 % (10-50); Mean Corpuscular Hemoglobin 24.9 pg (27.0-31.2); Mean Corpuscular Volume 85.8 fl (81-99); Mean Platelet Volume 8.2 fl (7.4-10.4); Neutrophils % 52.5 % (37.0-80.0); Platelet Count 131 K/mm3 (142-424); Red Blood Count 3.55 M/mm3 (4.20-5.40); Red Cell Distribution Width 18.4 % (11.5-17.5)
[2021-05-20 07:42] LABS: Hemoglobin 8.8 g/dL (12.2-16.2)
[2021-05-20 08:30] LABS: Chol/HDL Ratio 5.5 (1-3.5); Cholesterol 83 mg/dl (140-200); HDL Cholesterol 15 mg/dl (40-60); Triglycerides 118 mg/dl (30-150); VLDL Cholesterol 24 mg/dL (0-40)
[2021-05-20 08:41] LABS: Direct LDL Cholesterol 39.54 mg/dL (100-129)
--- NOTE | 2021-05-20 08:50 | HMH.ACPN ---
Internal Medicine - PN: Subj *Date: 05/20/21 *Time: 08:50 Exam Vital signs and Labs for Last 24 Hours: Temp Pulse Resp BP Pulse Ox 98.4 F 63 18 157/57 H 96 05/20/21 04:00 05/20/21 06:00 05/20/21 06:00 05/20/21 06:00 05/20/21 06:00 Laboratory Results - last 24 hr 05/19/21 10:00: WBC 6.7 D, RBC 4.10 L D, Hgb 10.2 L, Hct 34.2 L, MCV 83.4, MCH 25.0 L, MCHC 29.9 L, RDW 18.3 H, Plt Count 182 D, MPV 8.6, Neut % (Auto) 67.3, Lymph % (Auto) 26.2, [place] % (Auto) 5.5, Eos % (Auto) 0.3, Baso % (Auto) 0.7, Neut # (Auto) 4.5, Lymph # (Auto) 1.8, [place] # (Auto) 0.4, Eos # (Auto) 0.0, Baso # (Auto) 0.1 05/19/21 12:12: POC Glucose 150 H 05/19/21 20:04: POC Glucose 206 H 05/20/21 00:44: POC Glucose 155 H 05/20/21 06:03: POC Glucose 167 H 05/20/21 06:43: WBC 3.1 L D, RBC 3.55 L, Hgb 8.8 L D, Hct 30.5 L, MCV 85.8, MCH 24.9 L, MCHC 29.0 L, RDW 18.4 H, Plt Count 131 L D, MPV 8.2, Neut % (Auto) 52.5, Lymph % (Auto) 40.3, [place] % (Auto) 6.0, Eos % (Auto) 0.4, Baso % (Auto) 0.8, Neut # (Auto) 1.6 L, Lymph # (Auto) 1.2, [place] # (Auto) 0.2, Eos # (Auto) 0.0, Baso # (Auto) 0.0 05/20/21 06:43: Sodium 140, Potassium 4.2 D, Chloride 102, Carbon Dioxide 31 H, Anion Gap 11.2, BUN 39 H, Creatinine 1.20 H D, Estimated Creat Clear 55, Estimated GFR 44 L, Est GFR ( Amer) 53 L D, Glucose 158 H, Calcium 7.7 L 05/20/21 06:43: Triglycerides 118, Cholesterol 83 L, LDL Cholesterol Direct 39.54 L, VLDL Cholesterol 24, HDL Cholesterol 15 L, Cholesterol/HDL Ratio 5.5 H I & O for Last 24 hours: Intake & Output 05/17/21 05/18/21 05/19/21 05/20/21 22:59 23:59 23:59 23:59 Intake Total 426 / 426 Output Total 3185 / 3385 425 / 425 Balance -2759 / -2959 -395 / -395 Weight 84.1 kg 83.2 kg Microbiology Reports for the Last 24 Hours: Microbiology 05/17/21 10:50 Sputum - Endotracheal Tube Aspirate Gram Stain - Final 05/17/21 10:50 Sputum - Endotracheal Tube Aspirate Sputum Culture - Preliminary 05/17/21 16:30 Urine,Catheterized Urine Culture - Preliminary 05/17/21 03:15 Urine,Catheterized Urine Culture - Final Escherichia coli Assessment and Plan (1) Diastolic dysfunction with heart failure Status: Acute Qualifiers: Heart failure chronicity: acute on chronic Qualified Code(s): I50.33 - Acute on chronic diastolic (congestive) heart failure Category: Medical Code(s): I50.30 - Unspecified diastolic (congestive) heart failure (2) Coronary artery disease Status: Chronic Qualifiers: Coronary Disease-Associated Artery/Lesion type: [place] artery [place] vs. transplanted heart: [place] heart Associated angina: without angina Qualified Code(s): I25.10 - Atherosclerotic heart disease of [place] coronary artery without angina pectoris Category: Medical Code(s): I25.10 - Atherosclerotic heart disease of [place] coronary artery without angina pectoris (3) Bradycardia Status: Acute Category: Medical Code(s): R00.1 - Bradycardia, unspecified (4) History of colon cancer Status: Acute Category: Medical Code(s): Z85.038 - Personal history of other malignant neoplasm of large intestine (5) LVH (left ventricular hypertrophy) Status: Acute Category: Medical Code(s): I51.7 - Cardiomegaly (6) Mitral regurgitation Status: Acute Category: Medical Code(s): I34.0 - Nonrheumatic mitral (valve) insufficiency (7) Obesity (BMI 30-39.9) Status: Acute Category: Medical Code(s): E66.9 - Obesity, unspecified (8) Pulmonary hypertension Status: Acute Category: Medical Code(s): I27.20 - Pulmonary hypertension, unspecified (9) Small lymphocytic lymphoma Status: Acute Category: Medical Code(s): C83.00 - Small cell B-cell lymphoma, unspecified site (10) Splenomegaly Status: Acute Category: Medical Code(s): R16.1 - Splenomegaly, not elsewhere classified (11) Atrial fibrillation Status: Chronic Category: Medical Code(s): I48.91
--- NOTE | 2021-05-20 10:03 | HMH.PULMPN ---
Internal Medicine - PN: Subj *Date: 05/20/21 *Time: 10:04 Interval history: No acute respiratory events overnight. Patient admits continued improvement in her breathing symptoms. Exam - Constitutional Constitutional:: Present: no acute distress, comfortable - HENMT Exam HENMT: Present: normocephalic - Eye Exam Eyes:: Present: normal appearance both eyes and related structures - Neck Exam Neck:: Present: normal visual inspection - Respiratory Exam Respiratory:: Present: able to speak in complete sentences, no respiratory distress, normal respiratory effort, crackles. Absent: wheezing - Cardiovascular Exam Cardiac:: Present: S1, S2 - GI Exam GI:: Present: soft - Skin Exam Skin: Present: warm, no rash - Neurological Exam Neurological: Present: alert, awake, normal cognition - Extremities Exam Extremities: Present: no cyanosis, no clubbing, edema - Psychiatric Exam Psychiatric: Present: anxious, flat affect Assessment and Plan (1) Diastolic dysfunction with heart failure Status: Acute Qualifiers: Heart failure chronicity: acute on chronic Qualified Code(s): I50.33 - Acute on chronic diastolic (congestive) heart failure Category: Medical Code(s): I50.30 - Unspecified diastolic (congestive) heart failure (2) Coronary artery disease Status: Chronic Qualifiers: Coronary Disease-Associated Artery/Lesion type: [place] artery [place] vs. transplanted heart: [place] heart Associated angina: without angina Qualified Code(s): I25.10 - Atherosclerotic heart disease of [place] coronary artery without angina pectoris Category: Medical Code(s): I25.10 - Atherosclerotic heart disease of [place] coronary artery without angina pectoris (3) Bradycardia Status: Acute Category: Medical Code(s): R00.1 - Bradycardia, unspecified (4) History of colon cancer Status: Acute Category: Medical Code(s): Z85.038 - Personal history of other malignant neoplasm of large intestine (5) LVH (left ventricular hypertrophy) Status: Acute Category: Medical Code(s): I51.7 - Cardiomegaly (6) Mitral regurgitation Status: Acute Category: Medical Code(s): I34.0 - Nonrheumatic mitral (valve) insufficiency (7) Obesity (BMI 30-39.9) Status: Acute Category: Medical Code(s): E66.9 - Obesity, unspecified (8) Pulmonary hypertension Status: Acute Category: Medical Code(s): I27.20 - Pulmonary hypertension, unspecified (9) Small lymphocytic lymphoma Status: Acute Category: Medical Code(s): C83.00 - Small cell B-cell lymphoma, unspecified site (10) Splenomegaly Status: Acute Category: Medical Code(s): R16.1 - Splenomegaly, not elsewhere classified (11) Atrial fibrillation Status: Chronic Category: Medical Code(s): I48.91 - Unspecified atrial fibrillation (12) Current use of marine oil terminal 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 Status: Chronic Category: Medical Code(s): Z79.01 - terminal manager (current) use of anticoagulants (13) Hyperlipidemia Status: Chronic Qualifiers: Hyperlipidemia type: mixed hyperlipidemia Qualified Code(s): E78.2 - Mixed hyperlipidemia Category: Medical Code(s): E78.5 - Hyperlipidemia, unspecified (14) Hypertension Status: Chronic Qualifiers: Hypertension type: primary hypertension Qualified Code(s): I10 - Essential (primary) hypertension Category: Medical Code(s): I10 - Essential (primary) hypertension (15) Diabetes Status: Acute Category: Medical Code(s): E11.9 - Type 2 diabetes mellitus without complications (16) UTI (urinary tract infection) Status: Acute Qualifiers: Urinary tract infection type: site unspecified Category: Medical Code(s): N39.0 - Urinary tract infection, site not specified - Assessment and plan all Dx Assessment and Plan for all problems:: #Acute on chronic hypoxic respiratory failure: Ms. Lemons is a 75-year-old female greater than 74-[id number] smoking history baseline r
--- NOTE | 2021-05-20 10:06 | HMH.SLDYSPHA ---
Speech & Language Evaluation Speech/Language Dysphagia Evaluation Start: 05/20/21 10:00 Freq: ONCE Status: Active Protocol: Document 05/20/21 10:00 STANLEYJERSON (Rec: 05/20/21 10:06 STANLEYTAMRENE [id number]) Dysphagia Assess/Goals/Plan Assessment Date of Evaluation: 05/20/21 Evaluation Type Initial Certification Assessment/Problems Dysphagia post extubation Does Patient Qualify for Service Yes Qualify/Failure Comment Patient will be re-evaluated for possible diet upgrade tomorrow 05/21/21. Recommendations PHYSICIAN CERTIFICATION: The specified therapy services are required, authorized, and reviewed every 30 days. Pt will be seen # times/week 1 for # weeks 1 Diet Recommendations Mechanical Soft Liquid Type Recommendations Ocean Consistency SL Swallow Guidelines Standard Aspiration Prec., Crush meds as allowed* Dysphagia Swallow Precautions/Strategies Sitting Upright (90 deg),Small Bites and Sips,Alternate Liquids/Solids Plan Pt/Guardian verbally ack understanding Yes: RN and CM notified of dx/prognosis/goals G -code Required No STG-Other Comment/Non-Specific Patient will be re-evaluated for possible diet upgrade. Fdc Goals Diet Mech Soft with Liquids Ocean Thick General Information General Current Food Consistancy NPO Dentition Good Dentition Oxygen Status Nasal Cannula Facial Symmetry Symmetrical Patient Orientation Person,Place,Time,Situation Ability to Follow Directions Excellent Communication Ability No Impairment Dysphagia:Food Presentation Evaluation Food Type Pureed,Mechanical Soft,Regular ,Liquid,Pudding Normal/Thin Liquid Response Coughing after swallow,Clears throat,Wet voice Dysphagia Evaluation Summary Ms. Lemons was given the following consistencies: thins via straw and open cup, nectar, pudding, pureed, mechanical soft, and regular. The following signs of dysphagia were noted: coughing after the swallow, throat clearing, and wet vocal quality with thin liquids. At this time, it is recommended Ms. Lemons be placed on mechanical soft diet with
--- NOTE | 2021-05-20 10:15 | HMH.ACPN2 ---
Internal Medicine - PN: Subj *Date: 05/20/21 *Time: 19:19 Interval history: 75-year-old female patient sitting up in bed resting quietly, she reports she is still short of breath with any exertion but denies chest pain. Current oxygenation 94% on 4 L per nasal cannula. Patient reports she does not remember how she came to [facility] for the preceding events. Discussed with patient her being found down, intubated in the field, taken to outlying facility, and transferred to [facility]. She was extubated yesterday she has been doing well since and does not remember being extubated. Explained to patient she may not remember any of the previous events, she is requesting to talk to a buddhism man, I informed her we would have finger buff sewer talk to her. Exam Vital signs and Labs for Last 24 Hours: Temp Pulse Resp BP Pulse Ox 97.8 F 73 16 174/63 H 93 L 05/20/21 08:00 05/20/21 08:00 05/20/21 08:00 05/20/21 08:00 05/20/21 08:00 Laboratory Results - last 24 hr 05/19/21 10:00: WBC 6.7 D, RBC 4.10 L D, Hgb 10.2 L, Hct 34.2 L, MCV 83.4, MCH 25.0 L, MCHC 29.9 L, RDW 18.3 H, Plt Count 182 D, MPV 8.6, Neut % (Auto) 67.3, Lymph % (Auto) 26.2, [place] % (Auto) 5.5, Eos % (Auto) 0.3, Baso % (Auto) 0.7, Neut # (Auto) 4.5, Lymph # (Auto) 1.8, [place] # (Auto) 0.4, Eos # (Auto) 0.0, Baso # (Auto) 0.1 05/19/21 12:12: POC Glucose 150 H 05/19/21 20:04: POC Glucose 206 H 05/20/21 00:44: POC Glucose 155 H 05/20/21 06:03: POC Glucose 167 H 05/20/21 06:43: Sodium 140, Potassium 4.2 D, Chloride 102, Carbon Dioxide 31 H, Anion Gap 11.2, BUN 39 H, Creatinine 1.20 H D, Estimated Creat Clear 55, Estimated GFR 44 L, Est GFR ( Amer) 53 L D, Glucose 158 H, Calcium 7.7 L 05/20/21 06:43: Triglycerides 118, Cholesterol 83 L, LDL Cholesterol Direct 39.54 L, VLDL Cholesterol 24, HDL Cholesterol 15 L, Cholesterol/HDL Ratio 5.5 H 05/20/21 09:30: WBC 3.1 L D, RBC 3.55 L, Hgb 8.8 L D, Hct 30.5 L, MCV 85.8, MCH 24.9 L, MCHC 29.0 L, RDW 18.4 H, Plt Count 131 L D, MPV 8.2, Neut % (Auto) 52.5, Lymph % (Auto) 40.3, [place] % (Auto) 6.0, Eos % (Auto) 0.4, Baso % (Auto) 0.8, Neut # (Auto) 1.6 L, Lymph # (Auto) 1.2, [place] # (Auto) 0.2, Eos # (Auto) 0.0, Baso # (Auto) 0.0 I & O for Last 24 hours: Intake & Output 05/17/21 05/18/21 05/19/21 05/20/21 22:59 23:59 23:59 23:59 Intake Total 426 / 426 30 Output Total 3185 / 3385 425 / 425 Balance -2759 / -2959 -395 / -395 Weight 185 lb 6.54 oz 183 lb 6.793 oz Microbiology Reports for the Last 24 Hours: Microbiology 05/17/21 10:50 Sputum - Endotracheal Tube Aspirate Gram Stain - Final 05/17/21 10:50 Sputum - Endotracheal Tube Aspirate Sputum Culture - Preliminary 05/17/21 16:30 Urine,Catheterized Urine Culture - Preliminary 05/17/21 03:15 Urine,Catheterized Urine Culture - Final Escherichia coli - Constitutional no acute distress, chronically ill appearing - *Routine HEENT Exam Head: Present: normocephalic Eye: Present: EOMI ENT: Present: mucous membranes moist - *Routine Neck Exam Present: trachea midline. Absent: tracheal deviation - *Routine Respiratory Exam Present: decreased breath sounds, crackles. Absent: accessory muscle use - *Routine Cardiovascular Exam Present: RRR, murmur - *Routine Abdominal Exam Present: soft, normoactive bowel sounds. Absent: tenderness, firm - *Routine Extremities Exam Present: edema, full ROM, pulses intact. Absent: cyanosis, clubbing - *Routine Skin Exam Present: intact, dry, ecchymosis. Absent: cyanosis, erythema Comments: Multiple bruised areas to bilateral upper extremities - *Routine Neurological Exam Present: alert, altered mental status - Routine Psychiatric Exam Present: unable to assess Assessment and Plan (1) Diastolic dysfunction with heart failure Status: Acute Qualifiers: Heart failure chronicity: acute on chronic Qualified Code(s): I50.33 - Acute on chronic d
--- NOTE | 2021-05-20 10:41 | DIET.NUTRFU ---
RD spoke to RAYON TESTER this AM, patient demonstrated a wet cough with thin liquids. Diet ordered is MSOFT chopped with nectar thick liquids. Appetite was fair last admit prior to intubation, will monitor po intake and determine if supplements are needed.
--- NOTE | 2021-05-20 11:04 | HMH.OTEV ---
OT Inpatient Evaluation Rehab OT IP Evaluation Start: 05/19/21 14:44 Freq: ONCE Status: Complete Protocol: Document 05/20/21 10:56 [facility] (Rec: 05/20/21 11:04 [facility] [id number]) Rehab OT IP Assessment Subjective History Pt oriented x3 on arrival. Pt was admitted via ED on due to syncope and bradycardia. Pt reports prior to being in the hosptial she lived at home with her . Pt claims she was independent with all ADLs and IADLS. Pt reports she did not use a walker during ambulation. The following informationw as copied from history and physical report: Patient is a 75-year-old white female, admitted to our service with Dr. Neely. She was transferred from an outside hospital. Patient is unable to give a history. By account she was found down at home, had a cardiac in the 30s. She was hypotensive. She was intubated at the scene by EMS personnel with a 7.5 tube. She was given fluid boluses and started on Levophed. Lab work at the outside hospital showed Covid negative , evaded troponin, elevated potassium at 6.3 lactate of 10 .9. Her urine also had 1+ leukocyte esterase several WBCs. Patient is currently on the ventilator, SIMV mode with volume of 450. She is under sedation, starting to wake up a little bit, and an external pacer is in place. Her rate on the monitor is currently in the 90s. Review of history per nursing staff shows several comorbid conditions. Patient has a history of just of heart failure, diasto
--- NOTE | 2021-05-20 11:41 | HMH.PNCARD ---
Subjective Date: 05/20/21 Time: 11:15 Principal diagnosis: chf Interval history: This is a 75-year-old white female who was admitted to the hospital and intubated on the ventilator for respiratory failure. The patient has subsequently been extubated. This morning she denies any chest pain or pressure. She is still complaining of shortness of breath especially with exertion. She states that this improves with rest. She states her lower extremity edema has significantly improved. She appears to be in no distress. She denies any fever, chills, nausea, vomiting, diarrhea, PND. She does have associated orthopnea with her shortness of breath. Exam Vital signs and Labs for Last 24 Hours: Temp Pulse Resp BP Pulse Ox 97.8 F 73 16 174/63 H 93 L 05/20/21 08:00 05/20/21 08:00 05/20/21 08:00 05/20/21 08:00 05/20/21 08:00 Laboratory Results - last 24 hr 05/19/21 12:12: POC Glucose 150 H 05/19/21 20:04: POC Glucose 206 H 05/20/21 00:44: POC Glucose 155 H 05/20/21 06:03: POC Glucose 167 H 05/20/21 06:43: Sodium 140, Potassium 4.2 D, Chloride 102, Carbon Dioxide 31 H, Anion Gap 11.2, BUN 39 H, Creatinine 1.20 H D, Estimated Creat Clear 55, Estimated GFR 44 L, Est GFR ( Amer) 53 L D, Glucose 158 H, Calcium 7.7 L 05/20/21 06:43: Triglycerides 118, Cholesterol 83 L, LDL Cholesterol Direct 39.54 L, VLDL Cholesterol 24, HDL Cholesterol 15 L, Cholesterol/HDL Ratio 5.5 H 05/20/21 09:30: WBC 3.1 L D, RBC 3.55 L, Hgb 8.8 L D, Hct 30.5 L, MCV 85.8, MCH 24.9 L, MCHC 29.0 L, RDW 18.4 H, Plt Count 131 L D, MPV 8.2, Neut % (Auto) 52.5, Lymph % (Auto) 40.3, [place] % (Auto) 6.0, Eos % (Auto) 0.4, Baso % (Auto) 0.8, Neut # (Auto) 1.6 L, Lymph # (Auto) 1.2, [place] # (Auto) 0.2, Eos # (Auto) 0.0, Baso # (Auto) 0.0 I & O for Last 24 hours: Intake & Output 05/17/21 05/18/21 05/19/21 05/20/21 22:59 23:59 23:59 23:59 Intake Total 426 / 426 30 / 30 Output Total 3185 / 3385 425 / 425 Balance -2759 / -2959 -395 / -395 Weight 185 lb 6.54 oz 183 lb 6.793 oz Microbiology Reports for the Last 24 Hours: Microbiology 05/17/21 10:50 Sputum - Endotracheal Tube Aspirate Gram Stain - Final 05/17/21 10:50 Sputum - Endotracheal Tube Aspirate Sputum Culture - Preliminary 05/17/21 16:30 Urine,Catheterized Urine Culture - Preliminary 05/17/21 03:15 Urine,Catheterized Urine Culture - Final Escherichia coli - Constitutional no acute distress, obese - *Routine HEENT Exam Head: Present: normocephalic, atraumatic Eye: Present: EOMI, PERRL ENT: Present: mucous membranes moist - *Routine Neck Exam Present: supple, full ROM, normal carotid upstroke. Absent: JVD, carotid bruit, lymphadenopathy - *Routine Respiratory Exam Present: decreased breath sounds, rales - *Routine Cardiovascular Exam Present: RRR, Normal S1, Normal S2, murmur - *Routine Abdominal Exam Present: soft, normoactive bowel sounds. Absent: tenderness, distended - *Routine Extremities Exam Present: full ROM, pulses intact, normal capillary refill. Absent: cyanosis, clubbing, edema - *Routine Skin Exam Present: intact, warm. Absent: erythema, rash - *Routine Neurological Exam Present: alert, oriented X3, CN II-XII intact. Absent: sensory deficit, motor deficit Progress Note: A&P (1) Diastolic dysfunction with heart failure Status: Acute (2) Coronary artery disease Status: Chronic (3) Bradycardia Status: Acute (4) History of colon cancer Status: Acute (5) LVH (left ventricular hypertrophy) Status: Acute (6) Mitral regurgitation Status: Acute (7) Obesity (BMI 30-39.9) Status: Acute (8) Pulmonary hypertension Status: Acute (9) Small lymphocytic lymphoma Status: Acute (10) Splenomegaly Status: Acute (11) Atrial fibrillation Status: Chronic (12) Current use of meterman anticoagulation Status: Chronic (13) Hyperlipidemia Status: Chronic (14) Hyper
--- NOTE | 2021-05-20 11:42 | HMH.PTEV ---
Physical Therapy Evaluation Rehab PT IP Evaluation Start: 05/19/21 14:43 Freq: .once Status: Active Protocol: Document 05/20/21 11:36 PHORNE (Rec: 05/20/21 11:42 PHORNE [id number]) Subjective/History History History 75 yowf adm to [facility] with respiratory failure, orally intubated, now off vent x ~ 1 day. Pt reports she lives with and was independent with all mobility prior to adm . Subjective Subjective Pt remains very anxious and mildly confused, but appears to be much more alert and mobile this date. Rehab PT IP Eval Objective Appearance Patient Behavior Appropriate,Anxious, Distractible,Confused Patient Orientation Person,Place,Time Difficulty following instructions mild Speech Pattern Clear,Rambling,Excessive Ambulation Patient Able to Ambulate Yes Ambulation Observation IP General Gait Pattern Observation Shuffling Step Ambulation Distance (feet) 4 Ambulation Assistive Device None Ambulation Ability Contact Guard/Hand Hold Balance Ability to Arise Able, uses arms to help Sitting Balance Steady, safe Standing Balance Steady, wide stance Dynamic Sitting Balance Ability Good Dynamic Standing Balance Ability Fair Transfers Bed Transfer Ability Contact Guard/Hand Hold Chair Transfer Ability Contact Guard/Hand Hold Sit to Stand Bed Transfer Ability Contact Guard/Hand Hold Sit to Stand Chair Transfer Ability Contact Guard/Hand Hold ROM All Extremities PT ROM Status WFL MMT All Extremities PT MMT WFL Rehab PT IP prob,goals,plan Problems Date of Evaluation: 05/20/21 PT IP Problems Bed Mobility,Transfers,Gait Rehab Potential Rehab Potential Good Plan PT Intervention Plan Bed Mobility,Transfers,Gait, Self care,Therapeutic Exercise PT Plan Frequency BID Duration LOS Discharge Goals Bed Transfer Ability Supervision/Stand by Sit to Stand Chair Transfer Ability Supervision/Stand by Ambulation Assistive Device None Ambulation Distance (feet) 30 Discharge Plan PT Discharge Plan Pt is appropriate to return home once medically stable, recommend home health therapy upon d/c. G -code Required No Eval Complexity Ev
--- NOTE | 2021-05-20 12:05 | CARE MANAGER ---
Addendum entered by Margoth Simmons 05/20/21 13:38: Patient is agreeable to placement if necessary at time of discharge and expressed an interest in [facility] and [facility]. Patient is somewhat confused: I followed back up with her via phone and he is agreeable with short term placement at [facility] or [facility]. Patient information has been faxed to both facilities. Original Note: Spoke with regarding patients rehab potential. He states she used walker prior but he had to help her some and has a bad back so it can be difficult, but he is ok with whatever the patient wants to do. If she chooses to go to rehab he would like to keep her close. We discussed [facility], [facility], and [facility]. Again I explained the patient is confused and he states previously she talked about going to short term rehab so we will send to facility. SILVA Box
[2021-05-20 12:23] LABS: POC Glucose,Bedside 235 (70-110)
--- NOTE | 2021-05-20 14:05 | PC.NURSE ---
at 1011 called admissions that patient was out of stepdown and now [facility]
[2021-05-20 18:07] LABS: POC Glucose,Bedside 227 (70-110)
--- NOTE | 2021-05-20 20:18 | PC.NURSE ---
pt has napped periodically this shift. pt confusion is sporadic, she was tearful this am with dr Tierney and Pawan Petty when asking for water or an ice chip (NPO r/t pending swallow eval). when family is present pt is cheerful and does not appear confused. when family has left, confusion again returns. pt was napping at approx 1700. when she awakened, she was much more confused and suspicious of everything. pt would whisper when speaking to staff and glance around the room as though she was looking for someone to by spying on her. pt is aware that it is may,Anthony is president and of her birthday. she is unaware of where she is though. pt needs constant redirection of the situation and what brought her to the hospital. Dr Griffith was contacted at 1740,when confusion persisted. He rounded on the pt at approx 1840 and ordered mccartney to be dc, new UA to be collected. ordered lorazepam to be dc, and xanax home dose to be restarted.(0.5mg po qam, 1mg po qpm with meals.)
--- NOTE | 2021-05-20 22:11 | PC.NURSE ---
At this time patient still refuses to take her night meds. Patient states I just don't want to take them, I don't remember the names . This RN attempted to redirect the patient and the patient still refuses to take the meds.
[2021-05-21] VITALS: PULSE 70
[2021-05-21 01:37] LABS: POC Glucose,Bedside 193 (70-110)
[2021-05-21 04:00] VITALS: BP 167/61; PULSE 60; PULSE 72; RESP 18; TEMP 36.4; O2SAT 98
[2021-05-21 04:55] VITALS: BMI 32.8
[2021-05-21 06:10] LABS: POC Glucose,Bedside 188 (70-110)
[2021-05-21 06:44] LABS: Eosinophils % 1.1 % (0.1-12.0); Hematocrit 30.5 % (37.0-47.0); Hemoglobin 8.9 g/dL (12.2-16.2); Lymphocytes # 1.4 K/mm3 (0.7-4.5); Lymphocytes % 40.1 % (10-50); Mean Corpuscular HGB Conc 29.3 g/dL (31.8-35.4); Mean Corpuscular Hemoglobin 25.4 pg (27.0-31.2); Mean Corpuscular Volume 86.7 fl (81-99); Mean Platelet Volume 8.3 fl (7.4-10.4); Monocytes # 0.2 K/mm3 (0.1-1.0); Monocytes % 6.4 % (1.7-9.3); Neutrophils # 1.8 K/mm3 (1.8-7.8); Neutrophils % 51.4 % (37.0-80.0); Platelet Count 142 K/mm3 (142-424); Red Blood Count 3.51 M/mm3 (4.20-5.40); Red Cell Distribution Width 18.3 % (11.5-17.5); White Blood Count 3.5 K/mm3 (4.8-10.8)
[2021-05-21 07:15] LABS: Anion Gap 9.8 mEq/L (5-15); Blood Urea Nitrogen 34 mg/dl (7-17); Carbon Dioxide 33 mmol/L (22.0-30.0); Chloride 102 mmol/L (98-107); Creatinine Clearance Estimated 53 mL/min (50-200); Estimated Glomerular Filt Rate 44 ml/min (>60); GFR (African American) 53 ML/MIN (>60); Glucose 161 mg/dl (74-100); Potassium 3.8 mmoL/L (3.5-5.1); Sodium 141 mmol/L (136-145)
[2021-05-21 08:00] VITALS: BP 152/74; PULSE 70; PULSE 73; RESP 16; TEMP 36.6; O2SAT 95
--- NOTE | 2021-05-21 09:09 | HMH.PULMPN ---
Internal Medicine - PN: Subj *Date: 05/21/21 *Time: 16:13 Interval history: No acute events overnight. Exam - Constitutional Constitutional:: Present: no acute distress, comfortable - HENMT Exam HENMT: Present: normocephalic - Eye Exam Eyes:: Present: normal appearance both eyes and related structures - Neck Exam Neck:: Present: normal visual inspection - Respiratory Exam Respiratory:: Present: able to speak in complete sentences, crackles. Absent: wheezing - Cardiovascular Exam Cardiac:: Present: S1, S2 - GI Exam GI:: Present: soft - Skin Exam Skin: Present: warm, no rash - Neurological Exam Neurological: Present: alert, awake, normal cognition - Extremities Exam Extremities: Present: no cyanosis, no clubbing, edema Assessment and Plan (1) Diastolic dysfunction with heart failure Status: Acute Qualifiers: Heart failure chronicity: acute on chronic Qualified Code(s): I50.33 - Acute on chronic diastolic (congestive) heart failure Category: Medical Code(s): I50.30 - Unspecified diastolic (congestive) heart failure (2) Coronary artery disease Status: Chronic Qualifiers: Coronary Disease-Associated Artery/Lesion type: [place] artery [place] vs. transplanted heart: [place] heart Associated angina: without angina Qualified Code(s): I25.10 - Atherosclerotic heart disease of [place] coronary artery without angina pectoris Category: Medical Code(s): I25.10 - Atherosclerotic heart disease of [place] coronary artery without angina pectoris (3) Bradycardia Status: Acute Category: Medical Code(s): R00.1 - Bradycardia, unspecified (4) History of colon cancer Status: Acute Category: Medical Code(s): Z85.038 - Personal history of other malignant neoplasm of large intestine (5) LVH (left ventricular hypertrophy) Status: Acute Category: Medical Code(s): I51.7 - Cardiomegaly (6) Mitral regurgitation Status: Acute Category: Medical Code(s): I34.0 - Nonrheumatic mitral (valve) insufficiency (7) Obesity (BMI 30-39.9) Status: Acute Category: Medical Code(s): E66.9 - Obesity, unspecified (8) Pulmonary hypertension Status: Acute Category: Medical Code(s): I27.20 - Pulmonary hypertension, unspecified (9) Small lymphocytic lymphoma Status: Acute Category: Medical Code(s): C83.00 - Small cell B-cell lymphoma, unspecified site (10) Splenomegaly Status: Acute Category: Medical Code(s): R16.1 - Splenomegaly, not elsewhere classified (11) Atrial fibrillation Status: Chronic Category: Medical Code(s): I48.91 - Unspecified atrial fibrillation (12) Current use of extermination inspector anticoagulation Status: Chronic Category: Medical Code(s): Z79.01 - extermination supervisor (current) use of anticoagulants (13) Hyperlipidemia Status: Chronic Qualifiers: Hyperlipidemia type: mixed hyperlipidemia Qualified Code(s): E78.2 - Mixed hyperlipidemia Category: Medical Code(s): E78.5 - Hyperlipidemia, unspecified (14) Hypertension Status: Chronic Qualifiers: Hypertension type: primary hypertension Qualified Code(s): I10 - Essential (primary) hypertension Category: Medical Code(s): I10 - Essential (primary) hypertension (15) Diabetes Status: Acute Category: Medical Code(s): E11.9 - Type 2 diabetes mellitus without complications (16) UTI (urinary tract infection) Status: Acute Qualifiers: Urinary tract infection type: site unspecified Category: Medical Code(s): N39.0 - Urinary tract infection, site not specified - Assessment and plan all Dx Assessment and Plan for all problems:: #Acute on chronic hypoxic respiratory failure: Ms. Lemons is a 75-year-old female greater than 46-[id number]-rxsf smoking history baseline respiratory distress, on 4 L long-term oxygen therapy at home, on inhalers, diastolic heart failure recently discharged in the hospital after admitted for chest pain status post left heart cat
--- NOTE | 2021-05-21 09:42 | DIET.NUTRFU ---
Patient saw OBSTETRICS GYN PHYSICIAN yesterday and started on MSOFT with nectar thick liquids, secondary to a wet cough. Yesterday meal consumption was poor at 10% this AM improved at 50% and all nectar thicks at bedside consumed. During rounds she was requesting regular water , RD and nursing reviewed risks of PNA. [facility] here today to eval for possible placement. She received diuretic tx yesterday and will again today. Weight is down from 84kg to 80kg secondary to fluid loss. Labs are BUN 34H, Cr 1.2H and glucose 188H. Patient alert and orientated, independent with meals.
[2021-05-21 11:19] LABS: POC Glucose,Bedside 253 (70-110)
--- NOTE | 2021-05-21 11:22 | HMH.PNCARD ---
Subjective Date: 05/21/21 Time: 10:30 Principal diagnosis: chf Interval history: This is a 75-year-old female who was admitted to the hospital and initially intubated and on the ventilator for respiratory failure. She was subsequently extubated and remains on nasal cannula at 2 L/min. This morning she denies any chest pain or pressure. She states her shortness of breath is a little better but she still notices some shortness of breath with exertion. She states that this improves with rest. Her edema is much better. She appears to be in no distress. She denies any fever, chills, nausea, vomiting, diarrhea or PND. Exam Vital signs and Labs for Last 24 Hours: Temp Pulse Resp BP Pulse Ox 97.9 F 73 16 152/74 H 95 05/21/21 08:00 05/21/21 08:00 05/21/21 08:00 05/21/21 08:00 05/21/21 08:00 Laboratory Results - last 24 hr 05/20/21 12:14: POC Glucose 235 H 05/20/21 17:55: POC Glucose 227 H 05/21/21 01:29: POC Glucose 193 H 05/21/21 05:16: WBC 3.5 L, RBC 3.51 L, Hgb 8.9 L, Hct 30.5 L, MCV 86.7, MCH 25.4 L, MCHC 29.3 L, RDW 18.3 H, Plt Count 142, MPV 8.3, Neut % (Auto) 51.4, Lymph % (Auto) 40.1, [place] % (Auto) 6.4, Eos % (Auto) 1.1, Baso % (Auto) 1.0, Neut # (Auto) 1.8, Lymph # (Auto) 1.4, [place] # (Auto) 0.2, Eos # (Auto) 0.0, Baso # (Auto) 0.0 05/21/21 05:16: Sodium 141, Potassium 3.8, Chloride 102, Carbon Dioxide 33 H, Anion Gap 9.8, BUN 34 H, Creatinine 1.20 H, Estimated Creat Clear 53, Estimated GFR 44 L, Est GFR ( Amer) 53 L, Glucose 161 H, Calcium 8.0 L 05/21/21 05:51: POC Glucose 188 H 05/21/21 11:09: POC Glucose 253 H I & O for Last 24 hours: Intake & Output 05/18/21 05/19/21 05/20/21 05/21/21 23:59 23:59 23:59 23:59 Intake Total 426 / 426 870 / 870 270 / 270 Output Total 3185 / 3385 1125 / 1125 Balance -2759 / -2959 -255 / -255 270 / 270 Weight 185 lb 6.54 oz 183 lb 6.793 oz 178 lb 5.663 oz Microbiology Reports for the Last 24 Hours: Microbiology 05/17/21 10:50 Sputum - Endotracheal Tube Aspirate Gram Stain - Final 05/17/21 10:50 Sputum - Endotracheal Tube Aspirate Sputum Culture - Preliminary - Constitutional no acute distress, obese - *Routine HEENT Exam Head: Present: normocephalic, atraumatic Eye: Present: EOMI, PERRL ENT: Present: mucous membranes moist - *Routine Neck Exam Present: supple, full ROM, normal carotid upstroke. Absent: JVD, carotid bruit, lymphadenopathy - *Routine Respiratory Exam Present: CTA bilaterally - *Routine Cardiovascular Exam Present: RRR, Normal S1, Normal S2, murmur - *Routine Abdominal Exam Present: soft, normoactive bowel sounds. Absent: tenderness, distended - *Routine Extremities Exam Present: edema (Trace bilateral lower extremity edema), full ROM, pulses intact, normal capillary refill. Absent: cyanosis, clubbing - *Routine Skin Exam Present: intact, warm. Absent: erythema, rash - *Routine Neurological Exam Present: alert, oriented X3, CN II-XII intact. Absent: sensory deficit, motor deficit Progress Note: A&P (1) Diastolic dysfunction with heart failure Status: Acute (2) Coronary artery disease Status: Chronic (3) Bradycardia Status: Acute (4) History of colon cancer Status: Acute (5) LVH (left ventricular hypertrophy) Status: Acute (6) Mitral regurgitation Status: Acute (7) Obesity (BMI 30-39.9) Status: Acute (8) Pulmonary hypertension Status: Acute (9) Small lymphocytic lymphoma Status: Acute (10) Splenomegaly Status: Acute (11) Atrial fibrillation Status: Chronic (12) Current use of correction anticoagulation Status: Chronic (13) Hyperlipidemia Status: Chronic (14) Hypertension Status: Chronic (15) Diabetes Status: Acute (16) UTI (urinary tract infection) Status: Acute Assessment and Plan for All Diagnoses:: Plan: 1. The patient was admitted to the hospital after being found down at home. She was intubated and put on the
--- NOTE | 2021-05-21 11:24 | CT_ITS ---
FINAL REPORT TECHNIQUE: Then section axial CT images of the chest were obtained with contrast. Three-D reformatted images were also obtained.This study was performed with techniques to keep radiation doses as low as reasonably achievable (ALARA). Individualized dose reduction techniques using automated exposure control or adjustment of mA and/or kV according to the patient''s size were employed. CLINICAL HISTORY: soa FINDINGS: The bilateral lower lobe pulmonary arterial branches are partially obscured but there is evidence of a pulmonary embolism. 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 Cardiomegaly is noted. There is no evidence of mediastinal or hilar mass or adenopathy. There is no evidence of pulmonary mass or suspicious nodule. There are moderate bilateral pleural effusions. There is bilateral lower lobe atelectasis. There are mild changes of emphysema. Limited images of the upper abdomen demonstrates a somewhat irregular contour of the liver which is worrisome for cirrhosis. The spleen is partially imaged but there appears to be splenomegaly. There is mild anasarca and a small amount of ascites. There is mild right adrenal gland enlargement favoring hyperplasia or an adenoma. IMPRESSION: No evidence of pulmonary embolism. 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 Moderate bilateral pleural effusions. Reviewed, Interpreted and Dictated by Juma Mclean III, MD Transcribed by Nazanin Cifuentes Authenticated by Juma Mclean III, MD on 05/21/2021 01:44:22 PM [facility]
--- NOTE | 2021-05-21 11:24 | HMH.ACPN2 ---
Internal Medicine - PN: Subj *Date: 05/21/21 *Time: 08:30 Interval history: pt alert and asking for regular water. Exam Vital signs and Labs for Last 24 Hours: Temp Pulse Resp BP Pulse Ox 97.9 F 73 16 152/74 H 95 05/21/21 08:00 05/21/21 08:00 05/21/21 08:00 05/21/21 08:00 05/21/21 08:00 Laboratory Results - last 24 hr 05/20/21 12:14: POC Glucose 235 H 05/20/21 17:55: POC Glucose 227 H 05/21/21 01:29: POC Glucose 193 H 05/21/21 05:16: WBC 3.5 L, RBC 3.51 L, Hgb 8.9 L, Hct 30.5 L, MCV 86.7, MCH 25.4 L, MCHC 29.3 L, RDW 18.3 H, Plt Count 142, MPV 8.3, Neut % (Auto) 51.4, Lymph % (Auto) 40.1, [place] % (Auto) 6.4, Eos % (Auto) 1.1, Baso % (Auto) 1.0, Neut # (Auto) 1.8, Lymph # (Auto) 1.4, [place] # (Auto) 0.2, Eos # (Auto) 0.0, Baso # (Auto) 0.0 05/21/21 05:16: Sodium 141, Potassium 3.8, Chloride 102, Carbon Dioxide 33 H, Anion Gap 9.8, BUN 34 H, Creatinine 1.20 H, Estimated Creat Clear 53, Estimated GFR 44 L, Est GFR ( Amer) 53 L, Glucose 161 H, Calcium 8.0 L 05/21/21 05:51: POC Glucose 188 H 05/21/21 11:09: POC Glucose 253 H I & O for Last 24 hours: Intake & Output 05/18/21 05/19/21 05/20/21 05/21/21 11:59 11:59 11:59 11:59 Intake Total 1685 / 1685 180 / 180 1110 / 1110 Output Total 1092 / 1442 2950 / 2950 700 / 700 Balance 593 / 243 -2770 / -2770 410 / 410 Weight 185 lb 6.54 oz 183 lb 6.793 oz 178 lb 5.663 oz Microbiology Reports for the Last 24 Hours: Microbiology 05/17/21 10:50 Sputum - Endotracheal Tube Aspirate Gram Stain - Final 05/17/21 10:50 Sputum - Endotracheal Tube Aspirate Sputum Culture - Preliminary - Constitutional no acute distress, chronically ill appearing - *Routine HEENT Exam Head: Present: normocephalic Eye: Present: PERRL ENT: Present: mucous membranes moist - *Routine Neck Exam Present: supple. Absent: lymphadenopathy - *Routine Respiratory Exam Present: rhonchi - *Routine Cardiovascular Exam Present: RRR - *Routine Abdominal Exam Present: soft, normoactive bowel sounds. Absent: tenderness - *Routine Extremities Exam Present: normal capillary refill. Absent: cyanosis, clubbing, edema - *Routine Skin Exam Present: warm. Absent: rash - *Routine Neurological Exam Present: alert, oriented X3 Assessment and Plan (1) Diastolic dysfunction with heart failure Status: Acute Qualifiers: Qualified Code(s): I50.33 - Acute on chronic diastolic (congestive) heart failure Category: Medical Code(s): I50.30 - Unspecified diastolic (congestive) heart failure (2) Coronary artery disease Status: Chronic Qualifiers: Qualified Code(s): I25.10 - Atherosclerotic heart disease of [place] coronary artery without angina pectoris Category: Medical Code(s): I25.10 - Atherosclerotic heart disease of [place] coronary artery without angina pectoris (3) Bradycardia Status: Acute Category: Medical Code(s): R00.1 - Bradycardia, unspecified (4) History of colon cancer Status: Acute Category: Medical Code(s): Z85.038 - Personal history of other malignant neoplasm of large intestine (5) LVH (left ventricular hypertrophy) Status: Acute Category: Medical Code(s): I51.7 - Cardiomegaly (6) Mitral regurgitation Status: Acute Category: Medical Code(s): I34.0 - Nonrheumatic mitral (valve) insufficiency (7) Obesity (BMI 30-39.9) Status: Acute Category: Medical Code(s): E66.9 - Obesity, unspecified (8) Pulmonary hypertension Status: Acute Category: Medical Code(s): I27.20 - Pulmonary hypertension, unspecified (9) Small lymphocytic lymphoma Status: Acute Category: Medical Code(s): C83.00 - Small cell B-cell lymphoma, unspecified site (10) Splenomegaly Status: Acute Category: Medical Code(s): R16.1 - Splenomegaly, not elsewhere classified (11) Atrial fibrillation Status: Chronic Category: Medical Code(s): I48.91 - Unspecified atrial fibrillation (12) Current use of long
[2021-05-21 11:28] VITALS: BP 155/71; PULSE 65; RESP 18; TEMP 36.5; O2SAT 93
[2021-05-21 14:43] LABS: Amylase 56 U/L (30-110); Lipase 60 U/L (23-300)
[2021-05-21 14:44] LABS: Ammonia < 9 umol/L (9-30)
[2021-05-21 15:27] VITALS: BP 157/72; PULSE 61; RESP 18; TEMP 36.9; O2SAT 97
[2021-05-21 16:27] LABS: POC Glucose,Bedside 295 (70-110)
--- NOTE | 2021-05-21 17:14 | HMH.BHCONS ---
*Admission Date: 05/17/21 *Reason for consult:: anxiety and depression *History of present illness: I interviewed patient in her room. She was sitting up to the chair. -she immediately asks me for thin liquid water -she then requested that she needed someone to talk to -she states that she feels she is going to fall apart -that she is scared of something but not sure this is -if she knew; then she would take care of it -she states that she was at home; had a heart attack; and a mild stroke -has had these issues for a while -she states that she has been on paxil for a long time -for too many years actually -states that she can't remember why they ever started her on this -that she can't think of the trigger -she states that her anxiety and depression have never been this bad before -her mom had a nervous breakdown in her late 30s -was depressed for about 3 months and snapped out of it -her sister has had a nervous breakdown -she states that she thinks it was her time now She states that she sees things sometimes. -has been going on since way before Alissa -that she sees someone; will turn her head and look back and they are gone -that she sees shadows; with no face -dark figures -will see animals sometimes -birds; that do chirp and sing their songs -she states that they do not scare her -she just isn't sure why she hears and sees things -it varies all the time -never really sees or hears the same things -sees them mainly when she is alone -her is retired he is home with her -but they get on each others nerves She is alert and oriented x 3. -2021 -Anthony -not sure how long she has been here; but she was also intubated at admission -Wednesday -May; thought the ; but again; was sedated on admission -spells world backwards without difficulty -immediate recall 3/3 -3 minute recall 03/10 She states that she is really upset she is having to go to a fpc after discharge. 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 this is her biggest fear. RECOMMENDATIONS: 1. Start Abilify 5mg at bedtime--for hallucinations and depression. 2. she can discharge from behavioral health stand point. TIME IN: 1415 TIME OUT: 1445 [facility] History Medical History: Reports:: Arrhythmia, Atherosclerotic Heart Disease, Atrial Fibrillation, Cancer, Congestive Heart Failure, Coronary Artery Disease, Deep Vein Thrombosis, Diabetes Mellitus Type 2, Hyperlipidemia, Hypertension, Myocardial Infarction Denies:: Diabetes Mellitus Type 1, Internal Pacemaker, MRSA, Seizures *Have you ever received a pneumonia vaccine?: (unknown) *Have you received a flu vaccine this season?: (unknown) Other Medical History: Reports: Arthritis, Hypothyroidism, Thyroid Disease. Denies: Blood Transfusion Reaction Laterality Cases: Right: Breast Biopsy Other Surgeries: Yes: Appendectomy, Cancer Surgery (small colon), Cardiac Catheterization, Cholecystectomy, Coronary Stent, Hysterectomy-Total, Other (intrathecalpainpumpimplant). No: Pacemaker Amputation: No Fractures: No - *Social History Last grade of school completed: High school graduate Smoking Status: Former smoker Tobacco Type: cigarettes # Packs/Day (cigarettes): 1 #Yrs smoked (if former smoker): 55 Alcohol Intake: never Alcohol Intake Frequency:: 0-2 drinks per day Substance Use Type: other *Occupational Status:: other Housing: house Household Members: spouse *Travel in the last 8 weeks: None Family Hx:: Cancer, Coronary Artery Disease, Diabetes, Heart Attack, Hyperlipidemia, Hypertension Meds Home Medications Medication Instructions Recorded Confirmed Type Atorvastatin Calcium [Lipitor 40mg 40 mg PO HS 11/23/17 05/17/21 History Tab] Clopidogrel Bisulfate [Plavix 75mg 75 mg PO DAILY 11/23/17 05/17/21 Histor
[2021-05-21 18:25] LABS: Microscopic, Urine URINE MICROSCOPIC (MICROSCOPIC)
--- NOTE | 2021-05-21 18:53 | PC.WOUNDNOTE ---
scabbed area under pt's left breast pt's bottom dayshift 05/21/21
[2021-05-21 19:13] VITALS: BP 142/54; PULSE 67; RESP 20; TEMP 36.7; O2SAT 92
[2021-05-21 20:12] LABS: Appearance,Urine CLEAR (Clear); Bilirubin,Urine Negative (Negative); Blood, Urine 1+ (Negative); Color,Urine YELLOW (Yellow); Glucose,Urine (UA) Negative (Negative); Ketones,Urine Negative (Negative); Leukocyte Esterase,Urine Negative (Negative); Nitrate,Urine Negative (Negative); Protein,Urine 2+ (Negative); Urobilinogen,Urine 0.2 EU/dl (0.2)
[2021-05-21 20:33] LABS: POC Glucose,Bedside 286 (70-110)
[2021-05-21 21:14] LABS: Bacteria,Urine Trace /lpf; RBC,Urine Occasional #/hpf (0-3); Squamous Epithelial Cell,Urine Occasional #/hpf (0-5)
[2021-05-22] VITALS (9 sets, daily range): BP systolic 133–190; BP diastolic 62–74; PULSE 50–72; RESP 17–22; TEMP 36.5–36.8; O2SAT 91–97; BMI 33.1
--- NOTE | 2021-05-22 06:30 | PC.NURSE ---
pt has been restless this shift, has been up and down multiple times, has used BSC with 1 assist, BM this shift, remains on 3L NC with O2 sats 91-93, no complaints of pain or SOA
[2021-05-22 07:09] LABS: Basophils % 1.1 % (0.1-2.0); Eosinophils # 0.1 K/mm3 (0.0-0.4); Eosinophils % 1.5 % (0.1-12.0); Hematocrit 31.9 % (37.0-47.0); Hemoglobin 9.2 g/dL (12.2-16.2); Lymphocytes # 1.9 K/mm3 (0.7-4.5); Lymphocytes % 46.7 % (10-50); Mean Corpuscular HGB Conc 28.7 g/dL (31.8-35.4); Mean Corpuscular Hemoglobin 24.9 pg (27.0-31.2); Mean Corpuscular Volume 86.6 fl (81-99); Mean Platelet Volume 8.1 fl (7.4-10.4); Monocytes # 0.2 K/mm3 (0.1-1.0); Monocytes % 5.6 % (1.7-9.3); Neutrophils # 1.9 K/mm3 (1.8-7.8); Neutrophils % 45.2 % (37.0-80.0); Platelet Count 167 K/mm3 (142-424); Red Blood Count 3.69 M/mm3 (4.20-5.40); Red Cell Distribution Width 18.3 % (11.5-17.5); White Blood Count 4.1 K/mm3 (4.8-10.8)
[2021-05-22 07:15] LABS: Anion Gap 10.5 mEq/L (5-15); Blood Urea Nitrogen 29 mg/dl (7-17); Calcium 7.9 mg/dl (8.4-10.2); Carbon Dioxide 32 mmol/L (22.0-30.0); Chloride 100 mmol/L (98-107); Creatinine Clearance Estimated 54 mL/min (50-200); Estimated Glomerular Filt Rate 44 ml/min (>60); GFR (African American) 53 ML/MIN (>60); Glucose 185 mg/dl (74-100); Potassium 3.5 mmoL/L (3.5-5.1); Sodium 139 mmol/L (136-145)
--- NOTE | 2021-05-22 09:21 | HMH.PULMPN ---
Internal Medicine - PN: Subj *Date: 05/22/21 *Time: 09:21 Assessment and Plan (1) Diastolic dysfunction with heart failure Status: Acute Qualifiers: Heart failure chronicity: acute on chronic Qualified Code(s): I50.33 - Acute on chronic diastolic (congestive) heart failure Category: Medical Code(s): I50.30 - Unspecified diastolic (congestive) heart failure (2) Coronary artery disease Status: Chronic Qualifiers: Coronary Disease-Associated Artery/Lesion type: redd[place] artery Hoh vs. transplanted heart: redding heart Associated angina: without angina Qualified Code(s): I25.10 - Atherosclerotic heart disease of [place] coronary artery without angina pectoris Category: Medical Code(s): I25.10 - Atherosclerotic heart disease of [place] coronary artery without angina pectoris (3) Bradycardia Status: Acute Category: Medical Code(s): R00.1 - Bradycardia, unspecified (4) History of colon cancer Status: Acute Category: Medical Code(s): Z85.038 - Personal history of other malignant neoplasm of large intestine (5) LVH (left ventricular hypertrophy) Status: Acute Category: Medical Code(s): I51.7 - Cardiomegaly (6) Mitral regurgitation Status: Acute Category: Medical Code(s): I34.0 - Nonrheumatic mitral (valve) insufficiency (7) Obesity (BMI 30-39.9) Status: Acute Category: Medical Code(s): E66.9 - Obesity, unspecified (8) Pulmonary hypertension Status: Acute Category: Medical Code(s): I27.20 - Pulmonary hypertension, unspecified (9) Small lymphocytic lymphoma Status: Acute Category: Medical Code(s): C83.00 - Small cell B-cell lymphoma, unspecified site (10) Splenomegaly Status: Acute Category: Medical Code(s): R16.1 - Splenomegaly, not elsewhere classified (11) Atrial fibrillation Status: Chronic Category: Medical Code(s): I48.91 - Unspecified atrial fibrillation (12) Current use of [place] anticoagulation Status: Chronic Category: Medical Code(s): Z79.01 - snf (current) use of anticoagulants (13) Hyperlipidemia Status: Chronic Qualifiers: Hyperlipidemia type: mixed hyperlipidemia Qualified Code(s): E78.2 - Mixed hyperlipidemia Category: Medical Code(s): E78.5 - Hyperlipidemia, unspecified (14) Hypertension Status: Chronic Qualifiers: Hypertension type: primary hypertension Qualified Code(s): I10 - Essential (primary) hypertension Category: Medical Code(s): I10 - Essential (primary) hypertension (15) Diabetes Status: Acute Category: Medical Code(s): E11.9 - Type 2 diabetes mellitus without complications (16) UTI (urinary tract infection) Status: Acute Qualifiers: Urinary tract infection type: site unspecified Category: Medical Code(s): N39.0 - Urinary tract infection, site not specified - Assessment and plan all Dx Assessment and Plan for all problems:: #Acute on chronic hypoxic respiratory failure: Ms. Lemons is a 75-year-old female greater than [id number] smoking history baseline respiratory distress, on 4 L long-term oxygen therapy at home, on inhalers, diastolic heart failure recently discharged in the hospital after admitted for chest pain status post left heart cath that showed diastolic heart failure with pulmonary hypertension, significant volume overload with severely elevated RVSP at 72 mm Hg discharged on Lasix twice daily presented to the hospital after she was found down unresponsive bradycardic while she was intubated after EMS arrived. Patient initially had external pacer that was eventually discontinued over the weekend. She also had a history of lymphoma that was followed by an outside physician. Chest x-ray on admission cardiomegaly, bilateral pleural effusions and lower lobe airspace disease. Leukopenia noted. Afebrile. Interval update: Patient extubated on 05/19/21 has been tolerating well. Extubated to 4 L weaned to weaned to 2-3 L Continue to r
--- NOTE | 2021-05-22 11:27 | HMH.PNCARD ---
Subjective Date: 05/22/21 Time: 11:00 Principal diagnosis: chf Interval history: This is a 75-year-old white female who is admitted to the hospital in respiratory failure who is intubated on the ventilator. She has been extubated and remains on nasal cannula this morning. She is complaining of having more shortness of breath today than she did yesterday. She also reports having more edema today. She states that she is significantly depressed and she does not have anyone to talk to. She did have a psych nurse practitioner referral yesterday and did speak to Angela Yoder. She states that she thinks that she wants to go to the [facility] when she is discharged from the hospital but we will leave this up to the social workers and her primary care team. She denies any chest pain. She denies any fever, chills, nausea, vomiting, diarrhea or PND. Exam Vital signs and Labs for Last 24 Hours: Temp Pulse Resp BP Pulse Ox 98.1 F 63 19 190/74 H 96 05/22/21 08:00 05/22/21 08:00 05/22/21 08:00 05/22/21 08:00 05/22/21 08:00 Laboratory Results - last 24 hr 05/20/21 18:19: Urine Color Yellow, Urine Appearance Clear, Urine pH 6.0, Ur Specific [place] 1.020, Urine Protein 2+, Urine Glucose (UA) Negative, Urine Ketones Negative, Urine Blood 1+, Urine Nitrate Negative, Urine Bilirubin Negative, Urine Urobilinogen 0.2, Ur Leukocyte Esterase Negative, Urine RBC Occasional, Urine WBC 3-5, Ur Squamous Epith Cells Occasional, Urine Bacteria Trace 05/21/21 14:24: Ammonia < 9 L 05/21/21 14:24: Amylase 56, Lipase 60 05/21/21 16:16: POC Glucose 295 H 05/21/21 20:00: POC Glucose 286 H 05/22/21 05:21: WBC 4.1 L, RBC 3.69 L, Hgb 9.2 L, Hct 31.9 L, MCV 86.6, MCH 24.9 L, MCHC 28.7 L, RDW 18.3 H, Plt Count 167, MPV 8.1, Neut % (Auto) 45.2, Lymph % (Auto) 46.7, [place] % (Auto) 5.6, Eos % (Auto) 1.5, Baso % (Auto) 1.1, Neut # (Auto) 1.9, Lymph # (Auto) 1.9, [place] # (Auto) 0.2, Eos # (Auto) 0.1, Baso # (Auto) 0.0 05/22/21 05:21: Sodium 139, Potassium 3.5, Chloride 100, Carbon Dioxide 32 H, Anion Gap 10.5, BUN 29 H, Creatinine 1.20 H, Estimated Creat Clear 54, Estimated GFR 44 L, Est GFR ( Amer) 53 L, Glucose 185 H, Calcium 7.9 L I & O for Last 24 hours: Intake & Output 05/19/21 05/20/21 05/21/21 05/22/21 23:59 23:59 23:59 23:59 Intake Total 426 / 426 870 / 870 810 / 810 360 / 360 Output Total 3185 / 3385 1125 / 1125 300 / 300 Balance -2759 / -2959 -255 / -255 810 / 710 60 / 60 Weight 185 lb 6.54 oz 183 lb 6.793 oz 178 lb 5.663 oz 180 lb 3 oz Microbiology Reports for the Last 24 Hours: Microbiology 05/17/21 10:50 Sputum - Endotracheal Tube Aspirate Gram Stain - Final 05/17/21 10:50 Sputum - Endotracheal Tube Aspirate Sputum Culture - Final Staphylococcus aureus - Constitutional no acute distress, obese - *Routine HEENT Exam Head: Present: normocephalic, atraumatic Eye: Present: EOMI, PERRL ENT: Present: mucous membranes moist - *Routine Neck Exam Present: supple, full ROM. Absent: JVD, carotid bruit, normal carotid upstroke, lymphadenopathy - *Routine Respiratory Exam Present: decreased breath sounds, rales - *Routine Cardiovascular Exam Present: RRR, Normal S1, Normal S2, murmur - *Routine Abdominal Exam Present: soft, normoactive bowel sounds. Absent: tenderness, distended - *Routine Extremities Exam Present: edema (1-2+ bilateral lower extremity edema), full ROM, pulses intact, normal capillary refill. Absent: cyanosis, clubbing - *Routine Skin Exam Present: intact, warm. Absent: erythema, rash - *Routine Neurological Exam Present: alert, oriented X3, CN II-XII intact. Absent: sensory deficit, motor deficit - Routine Psychiatric Exam Present: normal affect, depressed, anxious Progress Note: A&P (1) Diastolic dysfunction with heart failure Status: Acute (2) Coronary artery disease Status: Chronic (3) Bradycardia Status: Acute (4) History of colon cance
--- NOTE | 2021-05-22 11:34 | DIET.NUTRFU ---
Wound noted under L breast and redness to lower buttock almost between her legs, increased protein needs. Patients diet was upgraded to MSOFT chopped with thin liquids yesterday by DELIVERY REP. Her meal intake is fair at 50-100% most meals. Planning to go to rehab facility at time of discharge. Will add ensure BID to help meet protein needs to promote healing.
[2021-05-22 12:27] LABS: Coronavirus 19, PCR Not Detected (NotDetected); Influenza A, PCR Not Detected (NotDetected); Influenza B, PCR Not Detected (NotDetected)
[2021-05-22 13:18] LABS: POC Glucose,Bedside 183 (70-110)
[2021-05-22 13:18] LABS: POC Glucose,Bedside 231 (70-110)
--- NOTE | 2021-05-22 15:24 | PC.NURSE ---
1410 notified oliver alvarez that patient urine came back with a vancomycin resistant organism.
[2021-05-22 16:37] LABS: POC Glucose,Bedside 284 (70-110)
--- NOTE | 2021-05-22 16:47 | HMH.ACPN2 ---
Internal Medicine - PN: Subj *Date: 05/22/21 *Time: 09:47 Interval history: 75-year-old female patient sitting up beside the bed occupational/physical therapy is in room and patient is actively participating. Current oxygenation 93% on 3 L per nasal cannula. Patient reports she does not feel very well but when questions states that she feels pretty good. Will not elaborate on feeling bad. She is more forgetful and does seem confused at times during conversation. She denies any needs/concerns at moment Exam Vital signs and Labs for Last 24 Hours: Temp Pulse Resp BP Pulse Ox 98.2 F 65 18 161/69 H 95 05/22/21 16:00 05/22/21 16:00 05/22/21 16:00 05/22/21 16:00 05/22/21 16:00 Laboratory Results - last 24 hr 05/20/21 18:19: Urine Color Yellow, Urine Appearance Clear, Urine pH 6.0, Ur Specific [place] 1.020, Urine Protein 2+, Urine Glucose (UA) Negative, Urine Ketones Negative, Urine Blood 1+, Urine Nitrate Negative, Urine Bilirubin Negative, Urine Urobilinogen 0.2, Ur Leukocyte Esterase Negative, Urine RBC Occasional, Urine WBC 3-5, Ur Squamous Epith Cells Occasional, Urine Bacteria Trace 05/21/21 20:00: POC Glucose 286 H 05/22/21 05:21: WBC 4.1 L, RBC 3.69 L, Hgb 9.2 L, Hct 31.9 L, MCV 86.6, MCH 24.9 L, MCHC 28.7 L, RDW 18.3 H, Plt Count 167, MPV 8.1, Neut % (Auto) 45.2, Lymph % (Auto) 46.7, [place] % (Auto) 5.6, Eos % (Auto) 1.5, Baso % (Auto) 1.1, Neut # (Auto) 1.9, Lymph # (Auto) 1.9, [place] # (Auto) 0.2, Eos # (Auto) 0.1, Baso # (Auto) 0.0 05/22/21 05:21: Sodium 139, Potassium 3.5, Chloride 100, Carbon Dioxide 32 H, Anion Gap 10.5, BUN 29 H, Creatinine 1.20 H, Estimated Creat Clear 54, Estimated GFR 44 L, Est GFR ( Amer) 53 L, Glucose 185 H, Calcium 7.9 L 05/22/21 06:35: POC Glucose 183 H 05/22/21 11:55: POC Glucose 231 H 05/22/21 12:15: SARS-CoV-2 (PCR) Not detected, Influenza A Untype (PCR) Not detected, Influenza Type B (PCR) Not detected 05/22/21 16:26: POC Glucose 284 H I & O for Last 24 hours: Intake & Output 05/19/21 05/20/21 05/21/21 05/22/21 23:59 23:59 23:59 23:59 Intake Total 426 / 426 870 / 870 810 / 810 480 / 480 Output Total 3185 / 3385 1125 / 1125 1000 / 1000 Balance -2759 / -2959 -255 / -255 810 / 710 -520 / -520 Weight 185 lb 6.54 oz 183 lb 6.793 oz 178 lb 5.663 oz 180 lb 3 oz Microbiology Reports for the Last 24 Hours: Microbiology 05/17/21 16:30 Urine,Catheterized Urine Culture - Preliminary Enterococcus faecium (grp d) 05/17/21 10:50 Sputum - Endotracheal Tube Aspirate Gram Stain - Final 05/17/21 10:50 Sputum - Endotracheal Tube Aspirate Sputum Culture - Final Staphylococcus aureus - Constitutional no acute distress, chronically ill appearing - *Routine HEENT Exam Head: Present: normocephalic Eye: Present: EOMI ENT: Present: mucous membranes moist - *Routine Neck Exam Present: trachea midline. Absent: tracheal deviation - *Routine Respiratory Exam Present: crackles. Absent: accessory muscle use - *Routine Cardiovascular Exam Present: RRR, murmur - *Routine Abdominal Exam Present: soft, normoactive bowel sounds. Absent: tenderness, firm - *Routine Extremities Exam Present: edema, full ROM, pulses intact. Absent: cyanosis, clubbing Comments: Bilateral lower extremities with edema - *Routine Skin Exam Present: intact, dry. Absent: cyanosis, erythema - *Routine Neurological Exam Present: alert, altered mental status. Absent: oriented X3 Assessment and Plan (1) Diastolic dysfunction with heart failure Status: Acute Qualifiers: Heart failure chronicity: acute on chronic Qualified Code(s): I50.33 - Acute on chronic diastolic (congestive) heart failure Category: Medical Code(s): I50.30 - Unspecified diastolic (congestive) heart failure (2) Coronary artery disease Status: Chronic Qualifiers: Coronary Disease-Associated Artery/Lesion type: [place] artery [place]
[2021-05-22 22:22] LABS: POC Glucose,Bedside 162 (70-110)
[2021-05-23] VITALS: BP 166/71; PULSE 60; PULSE 71; RESP 21; TEMP 36.4; O2SAT 91
[2021-05-23 04:00] VITALS: BP 156/59; PULSE 62; PULSE 75; RESP 17; TEMP 36.8; O2SAT 95
[2021-05-23 05:25] VITALS: BMI 33.5
[2021-05-23 06:59] LABS: Basophils % 0.5 % (0.1-2.0); Eosinophils % 1.4 % (0.1-12.0); Hematocrit 31.1 % (37.0-47.0); Hemoglobin 9.2 g/dL (12.2-16.2); Lymphocytes # 1.5 K/mm3 (0.7-4.5); Mean Corpuscular HGB Conc 29.4 g/dL (31.8-35.4); Mean Corpuscular Hemoglobin 24.9 pg (27.0-31.2); Mean Corpuscular Volume 84.7 fl (81-99); Mean Platelet Volume 8.1 fl (7.4-10.4); Monocytes # 0.2 K/mm3 (0.1-1.0); Monocytes % 5.9 % (1.7-9.3); Neutrophils # 1.6 K/mm3 (1.8-7.8); Neutrophils % 48.2 % (37.0-80.0); Platelet Count 171 K/mm3 (142-424); Red Blood Count 3.67 M/mm3 (4.20-5.40); Red Cell Distribution Width 18.4 % (11.5-17.5); White Blood Count 3.3 K/mm3 (4.8-10.8)
[2021-05-23 07:06] LABS: Anion Gap 9.6 mEq/L (5-15); Blood Urea Nitrogen 28 mg/dl (7-17); Calcium 7.7 mg/dl (8.4-10.2); Carbon Dioxide 33 mmol/L (22.0-30.0); Chloride 100 mmol/L (98-107); Creatinine Clearance Estimated 55 mL/min (50-200); Estimated Glomerular Filt Rate 44 ml/min (>60); GFR (African American) 53 ML/MIN (>60); Glucose 212 mg/dl (74-100); Potassium 3.6 mmoL/L (3.5-5.1); Sodium 139 mmol/L (136-145)
[2021-05-23 07:13] LABS: POC Glucose,Bedside 266 (70-110)
[2021-05-23 07:52] VITALS: O2SAT 95
[2021-05-23 08:00] VITALS: BP 190/76; PULSE 72; PULSE 74; RESP 20; TEMP 36.5; O2SAT 94
--- NOTE | 2021-05-23 11:26 | HMH.PNCARD ---
Subjective Date: 05/23/21 Time: 09:30 Principal diagnosis: chf Interval history: This is a 75-year-old white female who presented to the hospital initially in respiratory distress on the ventilator. She has remained extubated for the last several days. She states that her shortness of breath is still present and no different than it was yesterday even though she got IV diuretics. She denies any chest pain or pressure. She states that her edema is stable. She denies any fever, chills, nausea, vomiting, or diarrhea. The patient still complains of feeling significantly depressed. She has been evaluated by the psych nurse practitioner, Angela Yoder NP. Exam Vital signs and Labs for Last 24 Hours: Temp Pulse Resp BP Pulse Ox 97.7 F 72 20 190/76 H 94 L 05/23/21 08:00 05/23/21 08:00 05/23/21 08:00 05/23/21 08:00 05/23/21 08:00 Laboratory Results - last 24 hr 05/22/21 06:35: POC Glucose 183 H 05/22/21 11:55: POC Glucose 231 H 05/22/21 12:15: SARS-CoV-2 (PCR) Not detected, Influenza A Untype (PCR) Not detected, Influenza Type B (PCR) Not detected 05/22/21 16:26: POC Glucose 284 H 05/22/21 21:15: POC Glucose 162 H 05/23/21 05:11: WBC 3.3 L, RBC 3.67 L, Hgb 9.2 L, Hct 31.1 L, MCV 84.7, MCH 24.9 L, MCHC 29.4 L, RDW 18.4 H, Plt Count 171, MPV 8.1, Neut % (Auto) 48.2, Lymph % (Auto) 44.0, [place] % (Auto) 5.9, Eos % (Auto) 1.4, Baso % (Auto) 0.5, Neut # (Auto) 1.6 L, Lymph # (Auto) 1.5, [place] # (Auto) 0.2, Eos # (Auto) 0.0, Baso # (Auto) 0.0 05/23/21 05:11: Sodium 139, Potassium 3.6, Chloride 100, Carbon Dioxide 33 H, Anion Gap 9.6, BUN 28 H, Creatinine 1.20 H, Estimated Creat Clear 55, Estimated GFR 44 L, Est GFR ( Amer) 53 L, Glucose 212 H, Calcium 7.7 L 05/23/21 06:46: POC Glucose 266 H I & O for Last 24 hours: Intake & Output 05/20/21 05/21/21 05/22/21 05/23/21 23:59 23:59 23:59 23:59 Intake Total 870 / 870 810 / 810 960 / 960 120 / 120 Output Total 1125 / 1125 1000 / 1200 200 / 200 Balance -255 / -255 810 / 710 -40 / -240 -80 / -80 Weight 183 lb 6.793 oz 178 lb 5.663 oz 180 lb 3 oz 182 lb 6.356 oz Microbiology Reports for the Last 24 Hours: Microbiology 05/17/21 16:30 Urine,Catheterized Urine Culture - Preliminary Enterococcus faecium (grp d) - Constitutional no acute distress, obese - *Routine HEENT Exam Head: Present: normocephalic, atraumatic Eye: Present: EOMI, PERRL ENT: Present: mucous membranes moist - *Routine Neck Exam Present: supple, full ROM, normal carotid upstroke. Absent: JVD, carotid bruit, lymphadenopathy - *Routine Respiratory Exam Present: CTA bilaterally - *Routine Cardiovascular Exam Present: RRR, Normal S1, Normal S2, murmur - *Routine Abdominal Exam Present: soft, normoactive bowel sounds. Absent: tenderness, distended - *Routine Extremities Exam Present: edema (1-2+ bilateral lower extremity edema), full ROM, pulses intact, normal capillary refill. Absent: cyanosis, clubbing - *Routine Skin Exam Present: intact, warm. Absent: erythema, rash - *Routine Neurological Exam Present: alert, oriented X3, CN II-XII intact. Absent: sensory deficit, motor deficit - Routine Psychiatric Exam Present: depressed Progress Note: A&P (1) Diastolic dysfunction with heart failure Status: Acute (2) Coronary artery disease Status: Chronic (3) Bradycardia Status: Acute (4) History of colon cancer Status: Acute (5) LVH (left ventricular hypertrophy) Status: Acute (6) Mitral regurgitation Status: Acute (7) Obesity (BMI 30-39.9) Status: Acute (8) Pulmonary hypertension Status: Acute (9) Small lymphocytic lymphoma Status: Acute (10) Splenomegaly Status: Acute (11) Atrial fibrillation Status: Chronic (12) Current use of mcfp anticoagulation Status: Chronic (13) Hyperlipidemia Status: Chronic (14) Hypertension Status:
[2021-05-23 12:00] VITALS: BP 143/55; PULSE 61; PULSE 66; RESP 22; TEMP 36.6; O2SAT 97
--- NOTE | 2021-05-23 15:24 | HMH.DCSUM ---
General - General Admission date:: 05/17/21 Discharge date: 05/23/21 HPI HPI: Patient is a 75-year-old white female, admitted to our service with Dr. Neely. She was transferred from an outside hospital. Patient is unable to give a history. By account she was found down at home, had a cardiac in the 30s. She was hypotensive. She was intubated at the scene by EMS personnel with a 7.5 tube. She was given fluid boluses and started on Levophed. Lab work at the outside hospital showed Covid negative, evaded troponin, elevated potassium at 6.3 lactate of 10.9. Her urine also had 1+ leukocyte esterase several WBCs. Patient is currently on the ventilator, SIMV mode with volume of 450. She is under sedation, starting to wake up a little bit, and an external pacer is in place. Her rate on the monitor is currently in the 90s. Review of history per nursing staff shows several comorbid conditions. 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 She is also diabetic. Hospital Course Hospital Course: Abnormal Lab Results 05/22/21 16:26: POC Glucose 284 H 05/22/21 21:15: POC Glucose 162 H 05/23/21 05:11: WBC 3.3 L, RBC 3.67 L, Hgb 9.2 L, Hct 31.1 L, MCH 24.9 L, MCHC 29.4 L, RDW 18.4 H, Neut # (Auto) 1.6 L 05/23/21 05:11: Carbon Dioxide 33 H, BUN 28 H, Creatinine 1.20 H, Estimated GFR 44 L, Est GFR ( Amer) 53 L, Glucose 212 H, Calcium 7.7 L 05/23/21 06:46: POC Glucose 266 H 05/23/21 10:42: POC Glucose 219 H Microbiology 05/17/21 16:30 Urine,Catheterized Urine Culture - Preliminary Enterococcus faecium (grp d) 05/17/21 10:50 Sputum - Endotracheal Tube Aspirate Gram Stain - Final 05/17/21 10:50 Sputum - Endotracheal Tube Aspirate Sputum Culture - Final Staphylococcus aureus 05/17/21 03:15 Urine,Catheterized Urine Culture - Final Escherichia coli Ordering Physician: Benjamín Oseguera MD Date of Service: 05/17/21 Procedure(s): XR chest portable Accession Number(s): [id number] cc: Edouard Petty APRN; Ministerio Carroll MD~ PROCEDURE INFORMATION: Exam: XR Chest Exam date and time: 05/17/2021 5:00 AM Age: 75 years old Clinical indication: Device placement; Ett placement (vent status); Additional info: PT intubated. TECHNIQUE: Imaging protocol: XR of the chest. Views: 1 view. COMPARISON: CR XR CHEST 2V 05/11/2021 11:59 AM FINDINGS: Tubes, catheters and devices: Endotracheal tube approximately 1.7 cm above the anne marie, although the anne marie is not completely well visualized secondary to overlying medical monitoring equipment. Lungs: Bilateral lower lung field linear opacities suspect atelectasis or pneumonia. Pleural spaces: Bilateral lateral pleural thickening concerning for pleural effusions. Heart/Mediastinum: Cardiac silhouette persistently enlarged. Vasculature: Aortic arch calcification. Bones/joints: Osteopenia. IMPRESSION: 1. Bilateral lower lung field opacities. Atelectasis or pneumonia. 2. Bilateral pleural effusions. 3. New endotracheal tube tip relatively close to the anne marie and could be repositioned more cephalad. Ordering Physician: Benjamín Oseguera MD Date of Service: 05/17/21 Procedure(s): XR chest portable Accession Number(s): [id number] cc: Edouard Petty APRN; Ministerio Carroll MD~ PROCEDURE INFORMATION: Exam: XR Chest Exam date and time: 05/17/2021 5:00 AM Age: 75 years old Clinical indication: Device placement; Ett placement (vent status); Additional info: PT intubated. TECHNIQUE: Imaging protocol: XR of the chest. Views: 1 view. COMPARISON: CR XR CHEST 2V 05/11/2021 11:59 AM FINDINGS: Tubes, catheters and devices: Endotracheal tube approximately 1.7 cm above the anne marie, altho
[2021-05-23 16:03] LABS: POC Glucose,Bedside 219 (70-110)
--- NOTE | 2021-05-23 16:56 | PC.NURSE ---
Pt was discharged home. Pt was encouraged to go to [facility] by care management and nursing staff and refused. Pt has required assistance with all care this shift. Pt and pt's stated they have neighbors that can come over to help with anything that they need assistance with. SALVATORE CALLED AND STATED THAT PT COULD NOT BE ON ZYVOX WITH PAXIL. DREW NOTIFIED AND STATED IT WOULD BE OKAY FOR PT TO STOP THE PAXIL FOR NOW. [facility].
--- NOTE | 2021-05-26 14:11 | CARE MANAGER ---
Spoke with patient's regarding recent discharge from the hospital. He states her feet are swollen, but she is doing very well. She is sleeping well and denies questions or concerns. Home health has started. She picked up both her antibiotics and is holding the Paxil as instructed until finished with antibiotic per MD orders. SILVA Box
== END 2021-05-23 16:02 | disposition home or self-care (01) | DRG 208 ==
PROVIDERS: Family Medicine; Internal Medicine; Internal Medicine Pulmonary Disease; Nurse Practitioner Family; Admitting Provider Family Medicine; PCP Nurse Practitioner Family; Visit Provider Family Medicine
DX: J96.21 Acute and chronic respiratory failure with hypoxia (principal); I50.33 Acute on chronic diastolic (congestive) heart failure; C83.00 Small cell B-cell lymphoma, unspecified site; N39.0 Urinary tract infection, site not specified; Z85.038 Personal history of other malignant neoplasm of large intestine; I34.0 Nonrheumatic mitral (valve) insufficiency; E66.9 Obesity, unspecified; Z68.33 Body mass index [BMI] 33.0-33.9, adult; I48.91 Unspecified atrial fibrillation; I25.10 Atherosclerotic heart disease of native coronary artery without angina pectoris; Z79.01 Long term (current) use of anticoagulants; M96.1 Postlaminectomy syndrome, not elsewhere classified; I11.0 Hypertensive heart disease with heart failure; I27.20 Pulmonary hypertension, unspecified; Z99.81 Dependence on supplemental oxygen; M19.90 Unspecified osteoarthritis, unspecified site; E03.9 Hypothyroidism, unspecified; Z95.5 Presence of coronary angioplasty implant and graft; Z87.891 Personal history of nicotine dependence; Z79.4 Long term (current) use of insulin; E78.2 Mixed hyperlipidemia; I25.2 Old myocardial infarction; Z86.718 Personal history of other venous thrombosis and embolism; F32.A Depression, unspecified; B95.8 Unspecified staphylococcus as the cause of diseases classified elsewhere; B96.20 Unspecified Escherichia coli [E. coli] as the cause of diseases classified elsewhere; Z20.822 Contact with and (suspected) exposure to COVID-19; I48.0 Paroxysmal atrial fibrillation
CPT/HCPCS: 31500; 94002; 36415; 71045; 71275; 80048; 80053; 80061; 81001; 82140; 82150; 82803; 82962; 83605; 83690; 83735; 84100; 84443; 84484; 85007; 85014; 85018; 85025; 85048; 85049; 87070; 87077; 87081; 87086; 87088; 87186; 87205; 92526; 92610; 94003; 94640; 94761; 97110; 97116; 97162; 97166; 97530; C9803; J0696; J1956; J2405; Q9967; U0003; U0005

== ENCOUNTER 2021-06-03 10:37 | Observation (INO) | payer MEDICARE, SELFPAY ==
[2021-06-03] VITALS (14 sets, daily range): BP systolic 124–185; BP diastolic 43–79; PULSE 64–82; RESP 16–21; TEMP 36.4–36.9; O2SAT 90–99; BMI 37.8; BMI 39.0
--- NOTE | 2021-06-03 10:39 | ECG_ITS ---
APPROVED REPORT Exam: Resting ECG HR:66 bpm ECG Measurements Heart Rate 66 AXES OH 204 P 39 QRSd 103 QRS 79 QT 401 T -4 QTc 415 Conclusion SINUS RHYTHM MODERATE T-WAVE ABNORMALITY, CONSIDER ANTERIOR ISCHEMIA [-0.1+ mV T-WAVE IN V3/V4] ABNORMAL ECG UNCONFIRMED REPORT Electronically signed by : Benjamín Michelle MD 06/05/2021 16:19:55
--- NOTE | 2021-06-03 10:39 | CT_ITS ---
FINAL REPORT CLINICAL HISTORY: ybarra, confusion, ams FINDINGS: Axial images of the head were obtained without contrast. Coronal reformatted images were also obtained. This study was performed with techniques to keep radiation doses as low as reasonably achievable (ALARA). Individualized dose reduction techniques using automated exposure control or adjustment of mA and/or kV according to the patient's size were employed. Motion artifact is identified on many of the images. There is generalized age appropriate atrophy. There is no evidence of intracranial hemorrhage or mass. The ventricular size is within normal limits. There is no evidence of shift of the midline structures. No skull abnormality is seen on the bone window images. There is mild mucosal thickening involving the right maxillary sinus. IMPRESSION: No acute intracranial abnormality. Reviewed, Interpreted and Dictated by Juma Mclean III, MD Transcribed by Jie Menendez Authenticated by Juma Mclean III, MD on 06/03/2021 12:42:34 PM [facility]
--- NOTE | 2021-06-03 10:43 | HMH.EDGENADL ---
ED Disposition Clinical Impression: Hypoglycemia Disposition: Admitted as Observation Condition on Discharge: Good Referrals: Edouard Petty APRN [Primary Care Provider] - - Critical Care Critical Care Time: No Attestation: On , the high probability of a clinically significant, sudden or life threatening deterioration of the following system(s) required my full and direct attention, intervention and personal management. The time I documented below is in addition to time spent performing reported procedures but includes the following listed in this critical care notation. Medical Decision Making - Medical Records Medical records reviewed: Yes: I reviewed the patient's medical records. - Grzegorz Inquiry Pt receiving controlled substance: No Vital Signs: 06/03/21 11:19 06/03/21 11:26 06/03/21 12:00 Temperature 98.4 F Temperature Source Oral Pulse Rate 64 70 Pulse Rate [Left Radial] 72 Respiratory Rate 16 19 Blood Pressure 162/65 H 172/72 H Blood Pressure [Right Arm] 143/57 H Blood Pressure Mean [Right Arm] 85 Blood Pressure Source Automatic Cuff Automatic Cuff Blood Pressure Position Supine 02 Sat by Pulse Oximetry 99 96 96 Oxygen Delivery Method Nasal Cannula Nasal Cannula Nasal Cannula Oxygen Flow Rate (LPM) 3 3 2 06/03/21 12:30 06/03/21 13:00 06/03/21 13:30 Temperature Temperature Source Pulse Rate 71 75 76 Pulse Rate [Left Radial] Respiratory Rate 18 Blood Pressure 173/73 H 183/77 H 185/76 H Blood Pressure [Right Arm] Blood Pressure Mean [Right Arm] Blood Pressure Source Automatic Cuff Blood Pressure Position Sitting 02 Sat by Pulse Oximetry 96 93 L 95 Oxygen Delivery Method Nasal Cannula Nasal Cannula Nasal Cannula Oxygen Flow Rate (LPM) 2 2 2 06/03/21 14:00 06/03/21 14:30 06/03/21 15:00 Temperature Temperature Source Pulse Rate 79 82 81 Pulse Rate [Left Radial] Respiratory Rate Blood Pressure 184/79 H 174/75 H 170/68 H Blood Pressure [Right Arm] Blood Pressure Mean [Right Arm] Blood Pressure Source Automatic Cuff Blood Pressure Position 02 Sat by Pulse Oximetry 95 95 94 L Oxygen Delivery Method Nasal Cannula Nasal Cannula Nasal Cannula Oxygen Flow Rate (LPM) 2 2 2 06/03/21 15:30 Temperature Temperature Source Pulse Rate 78 Pulse Rate [Left Radial] Respiratory Rate Blood Pressure 124/47 L Blood Pressure [Right Arm] Blood Pressure Mean [Right Arm] Blood Pressure Source Automatic Cuff Blood Pressure Position Left Lateral 02 Sat by Pulse Oximetry 92 L Oxygen Delivery Method Nasal Cannula Oxygen Flow Rate (LPM) 2 - Lab Data Lab Results 06/03/21 10:44: WBC 4.6 L, RBC 3.80 L, Hgb 9.5 L, Hct 31.6 L, MCV 83.3, MCH 25.0 L, MCHC 30.0 L, RDW 18.5 H, Plt Count 55 L, MPV 8.8, Neut % (Auto) 58.8, Lymph % (Auto) 37.1, [place] % (Auto) 2.7, Eos % (Auto) 0.3, Baso % (Auto) 1.0, Neut # (Auto) 2.7, Lymph # (Auto) 1.7, [place] # (Auto) 0.1, Eos # (Auto) 0.0, Baso # (Auto) 0.0 06/03/21 10:44: Sodium 136, Potassium 4.7, Chloride 94 L, Carbon Dioxide 35 H, Anion Gap 11.7, BUN 65 H, Creatinine 1.90 H, Estimated GFR 26 L, Est GFR ( Amer) 31 L, Glucose 44 L, Calcium 8.7, Total Bilirubin 0.7, AST 35, ALT 23, Alkaline Phosphatase 74, Troponin I < 0.01, Total Protein 7.4 D, Albumin 4.2, Globulin 3.2, Albumin/Globulin Ratio 1.3 06/03/21 10:44: NT-Pro-B Natriuret Pep 6690 H 06/03/21 10:52: Urine Color Yellow, Urine Appearance Clear, Urine pH 6.0, Ur Specific [place] 1.010, Urine Protein Negative, Urine Glucose (UA) Negative, Urine Ketones Negative, Urine Blood Negative, Urine Nitrate Negative, Urine Bilirubin Negative, Urine Urobilinogen 0.2, Ur Leukocyte Esterase Negative, Ur Squamous Epith Cells Occasional 06/03/21 11:47: Lactate 1.2 06/03/21 12:04: POC Glucose 101 06/03/21 13:05: Troponin I < 0.01 06/03/21 15:20: POC Glucose 54 L 06/03/21 15:24: SARS-CoV-2 (PCR) Not detected, Influenza A Untype (PCR) Not detected, Influenza Type B (PCR) No
--- NOTE | 2021-06-03 10:46 | XR_ITS ---
FINAL REPORT CLINICAL HISTORY: ams, confusion COMPARISON: 05/18/2021 FINDINGS: SINGLE VIEW CHEST There is cardiomegaly. Endotracheal tube and nasogastric tube have been removed. The mediastinum is unremarkable. There is partially improved aeration of the lungs. There is mild pulmonary vascular congestion. There is no pneumothorax. IMPRESSION: Partially improved aeration of the lungs with removal of ET and NG tubes. Reviewed, Interpreted and Dictated by Juma Mclean III, MD Transcribed by Jie Menendez Authenticated by Juma Mclean III, MD on 06/03/2021 12:42:33 PM [facility]
[2021-06-03 10:57] LABS: Microscopic, Urine URINE MICROSCOPIC (MICROSCOPIC)
[2021-06-03 10:57] LABS: Eosinophils % 0.3 % (0.1-12.0); Hematocrit 31.6 % (37.0-47.0); Hemoglobin 9.5 g/dL (12.2-16.2); Lymphocytes # 1.7 K/mm3 (0.7-4.5); Lymphocytes % 37.1 % (10-50); Mean Corpuscular Volume 83.3 fl (81-99); Mean Platelet Volume 8.8 fl (7.4-10.4); Monocytes # 0.1 K/mm3 (0.1-1.0); Monocytes % 2.7 % (1.7-9.3); Neutrophils # 2.7 K/mm3 (1.8-7.8); Neutrophils % 58.8 % (37.0-80.0); Platelet Count 55 K/mm3 (142-424); Red Cell Distribution Width 18.5 % (11.5-17.5); White Blood Count 4.6 K/mm3 (4.8-10.8)
[2021-06-03 11:01] LABS: Appearance,Urine CLEAR (Clear); Bilirubin,Urine Negative (Negative); Blood, Urine Negative (Negative); Color,Urine YELLOW (Yellow); Glucose,Urine (UA) Negative (Negative); Ketones,Urine Negative (Negative); Leukocyte Esterase,Urine Negative (Negative); Nitrate,Urine Negative (Negative); Protein,Urine Negative (Negative); Urobilinogen,Urine 0.2 EU/dl (0.2)
--- NOTE | 2021-06-03 11:02 | PC.NURSE ---
notified radiology of ct head order, spoke with Joseph
[2021-06-03 11:13] LABS: Alanine Aminotransferase 23 U/L (12-78); Albumin Level 4.2 g/dl (3.5-5.0); Albumin/Globulin Ratio 1.3 (1.1-1.8); Alkaline Phosphatase 74 U/L (38-126); Anion Gap 11.7 mEq/L (5-15); Aspartate Amino Transferase 35 U/L (14-36); Bilirubin,Total 0.7 mg/dl (0.2-1.3); Blood Urea Nitrogen 65 mg/dl (7-17); Calcium 8.7 mg/dl (8.4-10.2); Carbon Dioxide 35 mmol/L (22.0-30.0); Chloride 94 mmol/L (98-107); Estimated Glomerular Filt Rate 26 ml/min (>60); GFR (African American) 31 ML/MIN (>60); Globulin 3.2 g/dL (1.3-3.2); Potassium 4.7 mmoL/L (3.5-5.1); Sodium 136 mmol/L (136-145); Total Protein,Serum 7.4 g/dl (6.3-8.2)
[2021-06-03 11:14] LABS: Squamous Epithelial Cell,Urine Occasional #/hpf (0-5)
[2021-06-03 11:25] LABS: Troponin I < 0.01 ng/ml (0.00-0.034)
[2021-06-03 11:26] LABS: Glucose 44 mg/dl (74-100)
--- NOTE | 2021-06-03 11:26 | PC.NURSE ---
notified ER of critical glucose
--- NOTE | 2021-06-03 11:28 | PC.NURSE ---
lab reported low glucose of 43 to kim michel. MD notified by this nurse of lab finding. This nurse asked MD what intervention he wanted for correction and MD recommended to feed the patient. This nurse reminded MD that we still had an outstanding head CT report. MD stated he still wanted patient fed to increase blood sugar. This nurse asked if dextrose could be administered while awaiting CT results. MD agreed and order was placed.
[2021-06-03 11:54] LABS: NT Pro Brain Natriuretic Pep. 6690 pg/mL (0-125)
[2021-06-03 12:09] LABS: Lactic Acid 1.2 mmol/L (0.7-2.1)
[2021-06-03 12:10] LABS: POC Glucose,Bedside 101 (70-110)
[2021-06-03 13:36] LABS: Troponin I < 0.01 ng/ml (0.00-0.034)
--- NOTE | 2021-06-03 15:24 | PC.NURSE ---
MARIAM VOGEL speaking with Dr. Tierney
[2021-06-03 15:28] LABS: POC Glucose,Bedside 54 (70-110)
[2021-06-03 15:37] LABS: Coronavirus 19, PCR Not Detected (NotDetected); Influenza A, PCR Not Detected (NotDetected); Influenza B, PCR Not Detected (NotDetected)
--- NOTE | 2021-06-03 15:39 | PC.NURSE ---
pt positioned on L side with pillow for comfort
--- NOTE | 2021-06-03 15:39 | PC.NURSE ---
MARIAM VOGEL speaking with DR. Tierney again at this time
--- NOTE | 2021-06-03 15:57 | PC.NURSE ---
Addendum entered by Shakira Cano RN 06/03/21 16:24: MARIAM VOGEL cancelled order for amp of D50, pt is eating applesauce at this time, will continue to monitor Original Note: MARIAM VOGEL gave verbal order for 1 amp of D50
--- NOTE | 2021-06-03 16:37 | PC.NURSE ---
MARIAM VOGEL in room speaking with pt and her
--- NOTE | 2021-06-03 16:38 | PC.NURSE ---
bonded strand operator paging dr. begum
--- NOTE | 2021-06-03 17:14 | PC.NURSE ---
NOTIFIED PASTE MAKER OF ADMISSION
--- NOTE | 2021-06-03 18:55 | PC.NURSE ---
pt arrived to the floor at this time
--- NOTE | 2021-06-03 19:31 | PC.NURSE ---
pt wounds assessed at bedside with oncoming RN. report given at 1859 when pt arrived on unit.
--- NOTE | 2021-06-03 21:40 | PC.WOUNDNOTE ---
1 &3 . Wound Under LT breast 2. Bruise on abdomen 4. Bruising and heeling wounds
[2021-06-03 22:28] LABS: POC Glucose,Bedside 92 (70-110)
[2021-06-04 01:24] LABS: POC Glucose,Bedside 155 (70-110)
[2021-06-04 04:00] VITALS: BP 153/58; PULSE 84; RESP 16; TEMP 36.8; O2SAT 95
[2021-06-04 05:50] LABS: POC Glucose,Bedside 113 (70-110)
[2021-06-04 05:51] LABS: Anion Gap 9.1 mEq/L (5-15); Blood Urea Nitrogen 57 mg/dl (7-17); Calcium 8.3 mg/dl (8.4-10.2); Carbon Dioxide 35 mmol/L (22.0-30.0); Chloride 92 mmol/L (98-107); Creatinine Clearance Estimated 42 mL/min (50-200); Estimated Glomerular Filt Rate 29 ml/min (>60); GFR (African American) 36 ML/MIN (>60); Glucose 104 mg/dl (74-100); Potassium 5.1 mmoL/L (3.5-5.1); Sodium 131 mmol/L (136-145)
--- NOTE | 2021-06-04 07:04 | HMH.PHAVTE ---
[facility] Pharmacy VTE Monitoring - Patient Demographics Admission date: 06/03/21 Report Date: 06/04/21 Time: 07:04 Allergies/Adverse Reactions: Patient Allergies No Known Drug Allergies [NKDA] Allergy (Unknown, Verified 11/25/20 15:01) Height: 1.52 m Weight: 90.718 kg Patient Problems: Current Active Problems Hypoglycemia (Acute) - VTE Risk Labs: VTE Related Lab Results Hgb 9.5 g/dL (12.2-16.2) L 06/03/21 10:44 Hct 31.6 % (37.0-47.0) L 06/03/21 10:44 Plt Count 55 K/mm3 (142-424) L 06/03/21 10:44 BUN 57 mg/dl (7-17) H 06/04/21 05:28 Creatinine 1.70 mg/dl (0.52-1.04) H 06/04/21 05:28 Estimated Creat Clear 42 mL/min (50-200) 06/04/21 05:28 VTE Risk Level: Moderate Risk - Prophylaxis VTE Prophylaxis Ordered?: Yes Types of VTE Prophylaxis: TEDS Knee High, Pharmacological Location of Applied Device: Bilateral Lower Extremeties Pharmacologic Type: Other (ELIQUIS)
--- NOTE | 2021-06-04 07:44 | HMH.PHAINT ---
MEDICATION RECONCILIATION COMPLETED ON PATIENT USING EXTERNAL FILL HISTORY FROM PHARMACY AND DISCHARGE SUMMARY FROM PREVIOUS ADMISSION. -NOBLE SAMPSOND
[2021-06-04 08:00] VITALS: BP 150/43; PULSE 83; RESP 17; TEMP 36.6; O2SAT 96
--- NOTE | 2021-06-04 09:59 | HMH.PTWOUND ---
Rehab Inpt Wound Evaluation Rehab IP Wound Evaluation Start: 06/03/21 21:51 Freq: ONCE Status: Active Protocol: Document 06/04/21 09:34 [email or web address] (Rec: 06/04/21 09:54 [email or web address] [id number]) Rehab PT Wound Assessment Patient Status Premedicated Prior to Dressing Change Yes Subjective Subjective THis is the initial Wound care eval for Radha Lemons. Pt is a 75 y/o female admitted to observation for hypoglycemia. Pt lives at home w/ husbad. Pt had low tucker score but also had wound on L upper abdomen under L breast. Wound appears to be a burn from electrode or defibrillator pad . Wound Left Upper Abdomen Wound Type Burn Wound Length (cm) 3.0 Wound Width (cm) 1.5 Wound Depth (cm) 0.5 Wound Bed Appearance Yellow,Slough,Eschar Percentage of Slough (%) 100 Percentage of Eschar (Yellow) (%) 50 Percentage of Eschar (Brown) (%) 50 Wound Margins Description Well Defined Surrounding Tissue Appearance Bright Red Surrounding Tissue Temperature Warm Wound Drainage Description None Drainage Amount None Drainage Odor No Odor Dressing Status Open to Air Wound Topical Solution/Irrigant Antibiotic Irrigant Primary Dressing Medicated Gauze Pad Comment betadyne gauze Wound Secondary Dressing Type Absorbant Pad Wound Debridement Method Gauze Wound Debridement Amount of Tissue Minimal Removed Wound Debridement Result Patient Unable to Tolerate, Stopped Due to Bleeding, Necrotic Tissue Remains Dressing Change Date 06/04/21 Dressing Change Patient Tolerance Tolerated Well Plan/Recommendation Comment Pt will continue to need wound care and dressing change from skilled professional due to pt's fuctional status. Because of wounds location, dressing soilage shoud not be of high concern and wound dressing can be changed Q48- Q72 Eval Complexity Eval Charge Codes 76961 - Moderate Complexity G-codes PT Current Status Other PT/OT Status PT Current Status Modifier CN-At least 100% impaired,
--- NOTE | 2021-06-04 10:43 | SW/DCPLANNER ---
Addendum entered by Margoth Simmons 06/06/21 09:29: This patient will discharge to [facility] today. is agreeable to transport patient. [facility] Jenkins is aware of plan and has stated no further COVID testing is needed at this time. Addendum entered by Margoth Simmons 06/05/21 13:48: Updated patient information has been faxed to Jareth Jenkins. Jareth has stated that she can accept this patient once she is medically stable for discharge. Addendum entered by Margoth Simmons 06/04/21 13:20: J[facility] Jenkins has started precert on this patient: Dr Leung is agreeable to follow this patient. Original Note: During morning rounds there was conversation with this patient regarding placement. Patient expressed that she is only interested in placement at [facility] for SNF level of care. I have attempted to contact Jareth Jenkins: no answer VM left at this time. Due to patients insurance I have also suggested [facility] and [facility]: patient prefers [facility] and is not sure if she is interested in these other facilities. Patient stated that she also had a previous experience at a [facility] and is not interested in returning: she was unsure of the name of the facility. I am currently waiting on a call back from Jareth Jenkins: I will fax information.
--- NOTE | 2021-06-04 10:45 | DIET.NUTRFU ---
Patient recently here, has skin breakdown. Possible discharge today, placement to rehab joel recommended. Will restart glucerna with al trays to help meet protein/caloric needs.
[2021-06-04 10:57] VITALS: BMI 38.9
--- NOTE | 2021-06-04 11:10 | HMH.PTEV ---
Physical Therapy Evaluation Rehab PT IP Evaluation Start: 06/04/21 10:46 Freq: ONCE Status: Active Protocol: Document 06/04/21 09:00 NIKITABELLA (Rec: 06/04/21 10:57 [email or web address] [id number]) Subjective/History History History THis is the initial IP PT evalaution for Radha Lemons. Pt is a 75 y/o female admitted to [facility] for hypoglycemia. Pt was at home w/ and EMS was called for weakness and AMS. Subjective Subjective Pt reports she get SOA w/ activity Rehab PT IP Eval Objective Appearance Patient Behavior Appropriate,Cooperative Patient Orientation Place,Name,Birthday,Year Difficulty following instructions none Speech Pattern Appropriate,Soft-Spoken Ambulation Patient Able to Ambulate Yes Ambulation Observation IP General Gait Pattern Observation Wide Based Gait,Shuffling Step Ambulation Distance (feet) 15 Ambulation Assistive Device Rolling Walker Ambulation Ability Contact Guard/Hand Hold Balance Ability to Arise Able, uses arms to help Sitting Balance Steady, safe Standing Balance Unsteady Dynamic Sitting Balance Ability Good Dynamic Standing Balance Ability Poor Transfers Bed Transfer Ability Supervision/Stand by Chair Transfer Ability Supervision/Stand by Sit to Stand Bed Transfer Ability Contact Guard/Hand Hold, Minimal x 1 (25% assist) Sit to Stand Chair Transfer Ability Contact Guard/Hand Hold, Minimal x 1 (25% assist) Rehab PT IP prob,goals,plan Problems Date of Evaluation: 06/04/21 PT IP Problems Transfers,Gait,Balance,Self care,Safety,Other Other Pt Problem cardio-pulmonary issues Rehab Potential Rehab Potential Fair Equipment Needs Assistive Devices Rolling / Wheeled Walker Plan PT Intervention Plan Transfers,Gait,Balance, Therapeutic Exercise PT Plan Frequency BID Duration LOS Discharge Goals Bed Transfer Ability Supervision/Stand by Sit to Stand Chair Transfer Ability Contact Guard/Hand Hold Ambulation Assistive Device Rolling Walker Ambulation Distance (feet) 20 Discharge Plan PT Discharge Plan Pt will benefit from skilled therapy while in [facility] to allow return to PLOF. Once pt is dc 'd she will continue to benefit
--- NOTE | 2021-06-04 12:36 | HMH.HP ---
*Admission Date: 06/03/21 *Chief complaint: weakness *History of present illness: 75 yr old female presents to ed with c/o weakness. Pt states she and her woke up on the floor. Pt states she has been falling at home due to weakness. pt states she is having difficulty walking and doing things at home. Pt states her is with her at all times but she still has been falling. Pt states she does not remember falling out of bed but was woke up by and she was on the floor. pt and family wish for rehab for strength building so she can return home with . [facility] History I have reviewed the patient's past medical history: Yes Medical History: Reports:: Arrhythmia, Atherosclerotic Heart Disease, Atrial Fibrillation, Cancer (HX small colon), Congestive Heart Failure, Coronary Artery Disease, Deep Vein Thrombosis, Diabetes Mellitus Type 2, Hyperlipidemia, Hypertension, Myocardial Infarction Denies:: Diabetes Mellitus Type 1, Internal Pacemaker, MRSA, Seizures *Have you ever received a pneumonia vaccine?: Yes *Have you received a flu vaccine this season?: Yes Other Medical History: Reports: Arthritis, Hypothyroidism, Thyroid Disease. Denies: Blood Transfusion Reaction Laterality Cases: Right: Breast Biopsy Other Surgeries: Yes: Appendectomy, Cancer Surgery (small colon), Cardiac Catheterization, Cholecystectomy, Coronary Stent, Hysterectomy-Total, Other (intrathecalpainpumpimplant). No: Pacemaker Amputation: No Fractures: No - *Social History Smoking Status: Never smoker Tobacco Type: cigarettes # Packs/Day (cigarettes): 1 #Yrs smoked (if former smoker): 55 Alcohol Intake: never Alcohol Intake Frequency:: 0-2 drinks per day Substance Use Type: other *Occupational Status:: retired Housing: house Household Members: spouse *Travel in the last 8 weeks: None Family Hx:: Cancer, Coronary Artery Disease, Diabetes, Heart Attack, Hyperlipidemia, Hypertension Review of Systems - Review of Systems Review of systems:: pertinent systems reviewed and negative unless documented below - Constitutional Reports fatigue, Reports weakness, Denies body ache(s) - Eyes Denies blind spots - ENT Denies dizziness - *Cardiovascular Denies chest pain at rest - *Respiratory Denies change in phlegm color - *Gastrointestinal Denies abdominal pain - *Genitourinary Denies abnormal periods - *Musculoskeletal Reports muscle weakness, Denies abnormal walking - Integumentary/Breasts Denies rash - *Neurologic Reports weakness, Denies abnormal walking - Psychiatric Denies lack of enjoyment - Endocrine Denies rapid, pounding, or irregular heartbeat - Hematologic/Lymphatic Denies easy bruising - Allergic/Immunologic Denies GI upset with certain foods Meds Home Medications Medication Instructions Recorded Confirmed Type Atorvastatin Calcium [Lipitor 40mg 40 mg PO HS 11/23/17 06/03/21 History Tab] Clopidogrel Bisulfate [Plavix 75mg 75 mg PO DAILY 11/23/17 06/03/21 History Tab] Pantoprazole Sodium [Protonix 40mg 40 mg PO HS 11/23/17 06/03/21 History tablet] Semaglutide [Ozempic] 1 mg SQ WEEKLY 11/23/17 06/03/21 History glipiZIDE [Glucotrol Xl] 5 mg PO DAILYDM 11/23/17 06/03/21 History ALPRAZolam [Xanax 0.5mg tab] 0.5 mg PO AM 05/07/21 06/04/21 History Apixaban [Eliquis 5mg tab] 5 mg PO BID 05/07/21 06/03/21 History Ezetimibe 10 mg PO HS 05/07/21 06/03/21 History Levothyroxine Sodium 112 mcg PO DAILYDM 05/07/21 06/03/21 History [Levothyroxine 112mcg (0.112mg) Tab] Saccharomyces Boulardii [Florastor] 250 mg PO BID 05/07/21 06/03/21 History Insulin Glargine,Hum.rec.anlog 40 units SQ PM 05/08/21 06/03/21 History [Toujeo Max Solostar] Ipratropium/Albuterol Sulfate 3 ml INHALATION Q6HP PRN 05/08/21 06/03/21 History [Iprat-Albut 0.5-3(2.5) mg/3 ml] Furosemide [Lasix 40mg tablet] 120 mg PO BIDL 05/17/21 06/03/21 History Potassium Chloride [Klor-Con 10mEq 20 meq PO DAILY 05/17/21 0
[2021-06-04 15:22] VITALS: BP 107/56; PULSE 77; RESP 17; TEMP 36.9; O2SAT 94
[2021-06-04 18:55] LABS: POC Glucose,Bedside 216 (70-110)
[2021-06-04 18:55] LABS: POC Glucose,Bedside 160 (70-110)
[2021-06-04 19:54] VITALS: BP 145/55; PULSE 77; RESP 18; TEMP 36.8; O2SAT 98
[2021-06-04 21:32] LABS: POC Glucose,Bedside 287 (70-110)
[2021-06-04 23:04] VITALS: BP 162/64; PULSE 74; RESP 18; TEMP 36.8; O2SAT 100
[2021-06-05] VITALS (22 sets, daily range): BP systolic 121–156; BP diastolic 41–75; PULSE 51–99; RESP 14–18; TEMP 36.4–36.9; O2SAT 90–100; BMI 31.3
--- NOTE | 2021-06-05 05:58 | PC.NURSE ---
pt has been awake all night, pt has rang the call light mutiple times stating i dont want to be left alone , pt has been ambulating in room with standby assist but will say I cant do it Im to sick pt tries to get staff to lift legs into bed as well as pull her up into bed, with some encouragement pt is able to do those things, blood sugars have been stable, vss, no distress noted, call light within reach will continue to monitor at this time
[2021-06-05 06:13] LABS: POC Glucose,Bedside 237 (70-110)
[2021-06-05 06:31] LABS: Blood Urea Nitrogen 58 mg/dl (7-17); Carbon Dioxide 34 mmol/L (22.0-30.0); Chloride 90 mmol/L (98-107); Creatinine Clearance Estimated 36 mL/min (50-200); Estimated Glomerular Filt Rate 32 ml/min (>60); GFR (African American) 38 ML/MIN (>60); Glucose 205 mg/dl (74-100); Sodium 130 mmol/L (136-145)
[2021-06-05 06:37] LABS: Basophils # 0.1 K/mm3 (0-0.2); Basophils % 1.6 % (0.1-2.0); Eosinophils % 0.7 % (0.1-12.0); Hematocrit 24.2 % (37.0-47.0); Hemoglobin 7.6 g/dL (12.2-16.2); Lymphocytes # 1.7 K/mm3 (0.7-4.5); Lymphocytes % 48.4 % (10-50); Mean Corpuscular HGB Conc 31.5 g/dL (31.8-35.4); Mean Corpuscular Volume 79.4 fl (81-99); Mean Platelet Volume 8.5 fl (7.4-10.4); Monocytes # 0.1 K/mm3 (0.1-1.0); Monocytes % 4.1 % (1.7-9.3); Neutrophils # 1.6 K/mm3 (1.8-7.8); Neutrophils % 45.3 % (37.0-80.0); Platelet Count 53 K/mm3 (142-424); Red Blood Count 3.05 M/mm3 (4.20-5.40); Red Cell Distribution Width 18.7 % (11.5-17.5); White Blood Count 3.6 K/mm3 (4.8-10.8)
[2021-06-05 10:04] LABS: Iron 216 ug/dL (37-170)
[2021-06-05 10:14] LABS: Total Iron Binding Capacity 349 ug/dL (265-497)
[2021-06-05 10:41] LABS: Ferritin 73.9 ng/ml (11.1-264)
--- NOTE | 2021-06-05 13:00 | HMH.ACPN2 ---
Internal Medicine - PN: Subj *Date: 06/05/21 *Time: 13:00 Interval history: Female patient sitting up in chair for her elevated, she denies any chest pain or respiratory distress during the night. Current oxygenation 90% on 5 L nasal cannula. Was going to discharge today to [facility] hemoglobin this morning 7.6, will transfuse 2 unit of packed red blood cells and order iron studies. Exam Vital signs and Labs for Last 24 Hours: Temp Pulse Resp BP Pulse Ox 98.1 F 67 15 131/47 L 97 06/05/21 12:55 06/05/21 12:55 06/05/21 12:55 06/05/21 12:55 06/05/21 12:55 Laboratory Results - last 24 hr 06/03/21 10:44: Hemoglobin A1c 7.0 H 06/04/21 12:30: POC Glucose 160 H 06/04/21 16:29: POC Glucose 216 H 06/04/21 19:38: POC Glucose 287 H 06/05/21 05:50: WBC 3.6 L, RBC 3.05 L, Hgb 7.6 L, Hct 24.2 L, MCV 79.4 L, MCH 25.0 L, MCHC 31.5 L, RDW 18.7 H, Plt Count 53 L, MPV 8.5, Neut % (Auto) 45.3, Lymph % (Auto) 48.4, [place] % (Auto) 4.1, Eos % (Auto) 0.7, Baso % (Auto) 1.6, Neut # (Auto) 1.6 L, Lymph # (Auto) 1.7, [place] # (Auto) 0.1, Eos # (Auto) 0.0, Baso # (Auto) 0.1 06/05/21 05:50: Sodium 130 L, Potassium 5.0, Chloride 90 L, Carbon Dioxide 34 H, Anion Gap 11.0, BUN 58 H, Creatinine 1.60 H, Estimated Creat Clear 36, Estimated GFR 32 L, Est GFR ( Amer) 38 L, Glucose 205 H, Calcium 9.0 06/05/21 05:50: Iron 216 H, TIBC 349, Iron Saturation 61.26795 H 06/05/21 05:50: Ferritin 73.9 06/05/21 05:50: Blood Type Confirm A Positive 06/05/21 06:02: POC Glucose 237 H 06/05/21 09:36: Blood Type A Positive, Antibody Screen Negative, Crossmatch (AHG) See Detail I & O for Last 24 hours: Intake & Output 06/02/21 06/03/21 06/04/21 06/05/21 23:59 23:59 23:59 23:59 Intake Total 600 / 600 120 / 120 Output Total 2475 / 2550 75 / 75 Balance -1875 / -1950 45 / 45 Weight 199 lb 15.983 oz 198 lb 6.656 oz 159 lb 9.6 oz Microbiology Reports for the Last 24 Hours: Microbiology 06/03/21 21:27 Anus CRE Surveillance Culture - Final Negative - Constitutional no acute distress - *Routine HEENT Exam Head: Present: normocephalic Eye: Present: EOMI ENT: Present: mucous membranes moist - *Routine Neck Exam Present: supple, trachea midline. Absent: tracheal deviation - *Routine Respiratory Exam Present: CTA bilaterally. Absent: accessory muscle use - *Routine Cardiovascular Exam Present: RRR - *Routine Abdominal Exam Present: soft, normoactive bowel sounds. Absent: tenderness, firm - *Routine Extremities Exam Present: edema, full ROM, pulses intact. Absent: cyanosis, clubbing Comments: Bruising noted to bilateral upper extremities - *Routine Skin Exam Present: intact. Absent: cyanosis, erythema Comments: Bruising noted to bilateral upper extremities - *Routine Neurological Exam Present: alert, oriented X3. Absent: motor deficit - Routine Psychiatric Exam Present: normal affect, normal thought process. Absent: visual hallucinations Assessment and Plan (1) Acute on chronic diastolic (congestive) heart failure Status: Acute Category: Medical Code(s): I50.33 - Acute on chronic diastolic (congestive) heart failure (2) Anemia Status: Acute Category: Medical Code(s): D64.9 - Anemia, unspecified (3) Diabetes Status: Acute Category: Medical Code(s): E11.9 - Type 2 diabetes mellitus without complications (4) Pulmonary HTN Status: Acute Category: Medical Code(s): I27.20 - Pulmonary hypertension, unspecified - Assessment and plan all Dx Assessment and Plan for all problems:: Rounded with Dr. Griffith, all orders per documents: 1. 2 units packed red blood cells 2. H/H 2 hours post infusion 3. Iron studies
[2021-06-05 14:00] LABS: Occult Blood,Stool Negative (Negative)
[2021-06-05 21:42] LABS: POC Glucose,Bedside 251 (70-110)
[2021-06-06 00:21] VITALS: BP 138/62; PULSE 72; RESP 17; TEMP 36.8; O2SAT 99
[2021-06-06 00:33] LABS: Hematocrit 31.3 % (37.0-47.0)
[2021-06-06 01:02] LABS: Hemoglobin 10.3 g/dL (12.2-16.2)
[2021-06-06 04:00] VITALS: BP 168/85; PULSE 71; RESP 19; TEMP 37.1; O2SAT 96
[2021-06-06 05:37] VITALS: BMI 31.6
[2021-06-06 07:15] LABS: Chloride 91 mmol/L (98-107); Potassium 4.7 mmoL/L (3.5-5.1); Sodium 132 mmol/L (136-145)
[2021-06-06 07:18] LABS: Anion Gap 12.7 mEq/L (5-15); Blood Urea Nitrogen 60 mg/dl (7-17); Carbon Dioxide 33 mmol/L (22.0-30.0); Creatinine Clearance Estimated 34 mL/min (50-200); Estimated Glomerular Filt Rate 29 ml/min (>60); GFR (African American) 36 ML/MIN (>60)
[2021-06-06 07:19] LABS: Calcium 8.9 mg/dl (8.4-10.2); Glucose 203 mg/dl (74-100)
[2021-06-06 07:36] LABS: Basophils % 0.8 % (0.1-2.0); Eosinophils % 0.4 % (0.1-12.0); Hematocrit 30.4 % (37.0-47.0); Hemoglobin 9.9 g/dL (12.2-16.2); Lymphocytes # 1.4 K/mm3 (0.7-4.5); Mean Corpuscular HGB Conc 32.5 g/dL (31.8-35.4); Mean Corpuscular Hemoglobin 25.9 pg (27.0-31.2); Mean Corpuscular Volume 79.7 fl (81-99); Mean Platelet Volume 9.2 fl (7.4-10.4); Monocytes # 0.2 K/mm3 (0.1-1.0); Monocytes % 5.7 % (1.7-9.3); Neutrophils # 1.4 K/mm3 (1.8-7.8); Neutrophils % 47.1 % (37.0-80.0); Red Blood Count 3.82 M/mm3 (4.20-5.40)
[2021-06-06 07:41] LABS: Platelet Count 52 K/mm3 (142-424)
[2021-06-06 08:00] VITALS: BP 153/65; PULSE 66; RESP 16; TEMP 36.2; O2SAT 86
--- NOTE | 2021-06-06 09:43 | HMH.DCSUM ---
General - General Admission date:: 06/03/21 Discharge date: 06/06/21 HPI HPI: 75 yr old female presents to ed with c/o weakness. Pt states she and her woke up on the floor. Pt states she has been falling at home due to weakness. pt states she is having difficulty walking and doing things at home. Pt states her is with her at all times but she still has been falling. Pt states she does not remember falling out of bed but was woke up by and she was on the floor. pt and family wish for rehab for strength building so she can return home with . Hospital Course Hospital Course: Abnormal Lab Results 06/05/21 05:50: Iron 216 H, Iron Saturation 61.15796 H 06/05/21 09:36: Crossmatch (AHG) See Detail 06/05/21 21:32: POC Glucose 251 H 06/06/21 00:23: Hgb 10.3 L D, Hct 31.3 L 06/06/21 06:01: WBC 3.0 L, RBC 3.82 L D, Hgb 9.9 L, Hct 30.4 L, MCV 79.7 L, MCH 25.9 L, RDW 18.0 H, Plt Count 52 L, Neut # (Auto) 1.4 L 06/06/21 06:01: Sodium 132 L, Chloride 91 L, Carbon Dioxide 33 H, BUN 60 H, Creatinine 1.70 H, Estimated GFR 29 L, Est GFR ( Amer) 36 L, Glucose 203 H Microbiology 06/03/21 21:27 Anus CRE Surveillance Culture - Final Negative Ordering Physician: Caleb Colón MD Date of Service: 06/03/21 Procedure(s): XR chest portable Accession Number(s): [id number] cc: Juma [facility] MD; Edouard Petty APRN~ FINAL REPORT CLINICAL HISTORY: ams, confusion COMPARISON: 05/18/2021 FINDINGS: SINGLE VIEW CHEST There is cardiomegaly. Endotracheal tube and nasogastric tube have been removed. The mediastinum is unremarkable. There is partially improved aeration of the lungs. There is mild pulmonary vascular congestion. There is no pneumothorax. IMPRESSION: Partially improved aeration of the lungs with removal of ET and NG tubes. Ordering Physician: Caleb Colón MD Date of Service: 06/03/21 Procedure(s): CT head/brain wo con Accession Number(s): [id number] cc: Caleb Colón MD; Juma [facility] MD; Edouard Petty APRN~ FINAL REPORT CLINICAL HISTORY: ybarra, confusion, ams FINDINGS: Axial images of the head were obtained without contrast. Coronal reformatted images were also obtained. This study was performed with techniques to keep radiation doses as low as reasonably achievable (ALARA). Individualized dose reduction techniques using automated exposure control or adjustment of mA and/or kV according to the patient's size were employed. Motion artifact is identified on many of the images. There is generalized age appropriate atrophy. There is no evidence of intracranial hemorrhage or mass. The ventricular size is within normal limits. There is no evidence of shift of the midline structures. No skull abnormality is seen on the bone window images. There is mild mucosal thickening involving the right maxillary sinus. IMPRESSION: No acute intracranial abnormality. Discharge Plan (1) Acute on chronic diastolic (congestive) heart failure- Biatrial enlargement, normal left ventricular size, mild concentric left ventricular hypertrophy, visually estimated ejection fraction 55% with no regional wall motion abnormality, grade 2 diastolic dysfunction seen without tissue Doppler evidence of raise left atrial pressure. 2. Moderately enlarged right ventricle with normal contractility. 3. Mild mitral and tricuspid regurgitation, (2) Anemia-STABLE H/H (3) Diabetes-continue home meds and monitoring (4) Pulmonary HTN -continue meds (5) WEAKNESS- pt has had numerous falls at home due to weakness and unsteady gait. will dc to rehab. Will dc to [facility] for rehab, she will be under the care of Dr Leung. she will need PT/OT for weakness and freq falls, [facility]. Objective Vital signs: Temp Pulse Resp BP Pulse Ox 97.2 F L 66 16 153/65 H 86 L 06/06/21 08:00 06/06/21 08:00 06/06/21 08:00 04
--- NOTE | 2021-06-06 10:25 | PC.NURSE ---
Tried calling report to [facility], nurse stated they didn't receive DC summary yet and to call back in ten minutes.
[2021-06-06 10:34] LABS: POC Glucose,Bedside 240 (70-110)
--- NOTE | 2021-06-09 14:21 | CARE MANAGER ---
Spoke with nurse at [facility], states patient is ok and had no needs at this time.
== END 2021-06-06 10:55 ==
LOC: ER 16:45 → 2ND 17:58
PROVIDERS: Family Medicine; Nurse Practitioner Family; Admitting Provider Emergency Medicine; Emergency Provider Emergency Medicine; PCP Nurse Practitioner Family; Visit Provider Emergency Medicine
DX: E11.649 Type 2 diabetes mellitus with hypoglycemia without coma (principal); I48.91 Unspecified atrial fibrillation; I11.0 Hypertensive heart disease with heart failure; I50.33 Acute on chronic diastolic (congestive) heart failure; I25.10 Atherosclerotic heart disease of native coronary artery without angina pectoris; E03.9 Hypothyroidism, unspecified; Z79.01 Long term (current) use of anticoagulants; Z79.02 Long term (current) use of antithrombotics/antiplatelets; Z79.84 Long term (current) use of oral hypoglycemic drugs; R26.9 Unspecified abnormalities of gait and mobility; R29.6 Repeated falls; Z20.822 Contact with and (suspected) exposure to COVID-19
CPT/HCPCS: G0378; 36415; 70450; 71045; 80048; 80053; 81001; 82272; 82728; 82962; 83036; 83540; 83550; 83605; 83880; 84484; 85014; 85018; 85025; 86850; 87081; 93005; 96365; 96375; 97110; 97162; 99285; C9803; G0328; J2405; P9016; U0003; U0005